=== PATIENT | female | born 1975 | race Caucasian/White ===

== ENCOUNTER 2024-06-06 08:43 | Emergency (ER) | payer MEDICAID, SELFPAY ==
[2024-06-06 09:03] VITALS: BP 125/83; PULSE 98; RESP 18; TEMP 37.4; O2SAT 100; BMI 28.1
--- NOTE | 2024-06-06 09:09 | PD.EDEYE ---
ED Eye Problem RME/HPI General Chief complaint: Eye Problems Stated complaint: RIGHT EYE SWELLING/PAIN Time Seen by Provider: 06/06/24 09:08 Source: patient Arrival date/time: 06/06/24 08:43 49-year-old female presents emergency department complaining of redness and swelling with drainage to right eye since this morning. Patient reports seeing states her Under that she placed yesterday and she awoke with the symptoms. Patient denies any vision changes, dizziness, headache, or any other symptom. Mode of arrival: ambulatory Limitations: no limitations Related Data Previous Rx's ?Medication ?Instructions ?Recorded aspirin 81 mg tablet,delayed 81 mg PO QDAY #30 tabs 09/29/20 release atorvastatin 40 mg tablet 40 mg PO QPM #30 tabs 09/29/20 clopidogrel 75 mg tablet (Plavix) 75 mg PO QDAY #30 tabs 09/29/20 metformin 1,000 mg tablet 1,000 mg PO BID #60 tabs 09/29/20 metoprolol tartrate 25 mg tablet 12.5 mg (1/2 x 25 mg) PO BID #60 09/29/20 tabs hydrocodone 5 mg-acetaminophen 325 1 tab PO BID PRN pain #6 tabs 09/16/23 mg tablet erythromycin 5 mg/gram (0.5 %) eye 0.5 inch ophthalmic (eye) QID 5 06/06/24 ointment days #3.5 grams Allergies Allergy/AdvReac Type Severity Reaction Status Date / Time No Known Allergies Allergy Verified 05/25/24 08:30 Review of Systems Review of Systems Systems Reviewed: All systems reviewed, normal except as documented Constitutional Constitutional: Reports system reviewed and no additional complaints, except as documented, Denies body ache(s), Denies chills and Denies fever(s) Eyes Eyes: Reports system reviewed and no additional complaints, except as documented, Denies change in vision, Reports eye discharge and Reports irritation ENT Ears, Nose, Mouth, and Throat: Reports system reviewed and no additional complaints, except as documented, Denies disequilibrium, Denies dizziness, Denies sore throat and Denies vertigo Cardiovascular Cardiovascular: Reports system reviewed and no additional complaints, except as documented, Denies chest pain and Denies dyspnea Respiratory Respiratory: Reports system reviewed and no additional complaints, except as documented, Denies chest congestion, Denies cough and Denies dyspnea Gastrointestinal Gastrointestinal: Reports system reviewed and no additional complaints, except as documented, Denies abdominal pain, Denies nausea and Denies vomiting Musculoskeletal Musculoskeletal: Reports system reviewed and no additional complaints, except as documented, Denies abnormal gait and Denies arthralgias Integumentary/Breasts Skin/Breast: Reports system reviewed and no additional complaints, except as documented, Denies erythema, Denies rash and Denies wounds Neurologic Neurologic: Reports system reviewed and no additional complaints, except as documented, Denies abnormal gait, Denies disequilibrium, Denies dizziness and Denies vertigo Past Medical History Past Medical History CARDIAC: Negative Congestive Heart Failure RESPIRATORY: Negative Chronic Obstructive Pulmonary Disease (COPD) GENITOURINARY: Negative Renal Disease ENDOCRINE: Positive Diabetes Mellitus Type 1; Negative Diabetes Mellitus Type 2 PSYCHO/SOCIAL: Positive Psychiatric Problems, Schizophrenia, Bipolar Disorder and Behavior Problems (episodes of psychosis) Surgical History SURGICAL: Positive Hysterectomy Social History SMOKING STATUS: Light (< 1 pack/day) ED Exam General Limitations: Present no limitations General appearance: Present alert and in no apparent distress Head Head exam: Present atraumatic Eye Eye exam: Present normal appearance, PERRL, EOMI and periorbital swelling (Scant edema) Expanded Eye Exam Eyelids: right: stye Pupils: Bilateral: regular, round and reactive Sclera/Conjunctival: bilateral: normal inspection ENT ENT exam: Present normal exam, normal oropharynx and mucous membranes moist Neck Neck exam: Present normal inspection, full ROM and trachea midline Chest Chest inspection: Present normal inspection and symmetric chest wall rise Respiratory Respiratory exam: Present normal lung sounds bilaterally Cardiovascular Cardiovascular exam: Present regular rate, normal rhythm and normal heart sounds Abdominal Exam Abdominal exam: Present soft and normal bowel sounds Extremities Exam Extremities exam: Present normal inspection and full ROM Back Exam Back exam: Present normal inspection and full ROM Neurological Exam Neurological exam: Present alert, oriented X3 and CN II-XII intact Psychiatric Psychiatric exam: Present normal affect and normal mood Skin Skin exam: Present warm, dry, intact and normal color Course Quality Measures none Vital Signs Vital signs: Vital Signs Temperature 99.3 F 06/06/24 09:03 Pulse Rate 98 06/06/24 09:03 Respiratory Rate 18 06/06/24 09:03 Blood Pressure 125/83 06/06/24 09:03 Pulse Oximetry (%) 100 06/06/24 09:03 Oxygen Delivery Method Room Air 06/06/24 09:03 100% room air within normal limits Eye MDM Narrative MDM Narrative:: 49-year-old female presents emergency department complaining of redness and swelling with drainage to right eye since this morning. Patient reports seeing states her Under that she placed yesterday and she awoke with the symptoms. Patient denies any vision changes, dizziness, headache, or any other symptom. Patient's right eye lower eyelid stye with no injection of similar. Right eye PERRLA. Patient appears nontoxic and hemodynamically stable. Patient discharged home with erythromycin cream and instructed to follow-up with primary care provider upon discharge. Patient data External records reviewed:: [facility] previous records Clinical information provided by:: patient Social determinants that could affect healthcare access:: none Patient has the following chronic illnesses:: See chart How is presenting disease/condition affected by chronic disease/condition?: uneffected by Evaluation data The following diagnostics were reviewed and interpreted by me:: other (specify) (N/A) Lab and/or radiology exams considered but not ordered:: N/A Interpretation Summary: N/A Medications / Prescriptions Medications or Prescriptions considered but not ordered:: N/A Medication administrations:: N/A Consultations Consultation(s) initiated? (list below): No Diagnosis Eye Problem Differential Diagnosis: conjunctivitis and periorbital cellulitis Most likely diagnosis given after review of the tests above:: Stye Admission Indicated Admission indicated?: not indicated Admission Request Was there a request for admission?: No Disposition Plan Disposition Plan: Discharge Discharge Attestation Discharge Attestation: The patient and all family members were given an opportunity to ask questions and understood the discharge instructions. Discharge instructions specifically effects, indications for sooner follow up or return to the emergency department, and the expected course of current diagnosis. Patient condition: Stable Discharge Plan Plan Patient Disposition: HOME (Self Care) Disposition Comment: Stable Prescriptions/Referrals Prescriptions/Med Rec: New erythromycin 5 mg/gram (0.5 %) ointment 0.5 inch ophthalmic (eye) QID 5 Days Qty: 3.5 0RF No Action metoprolol tartrate 25 mg Tablet 12.5 mg PO BID Qty: 60 0RF aspirin 81 mg tablet,delayed release (DR/EC) 81 mg PO QDAY Qty: 30 0RF clopidogrel [Plavix] 75 mg tablet 75 mg PO QDAY Qty: 30 0RF atorvastatin 40 mg tablet 40 mg PO QPM Qty: 30 0RF metformin 1,000 mg tablet 1,000 mg PO BID Qty: 60 0RF hydrocodone-acetaminophen 5-325 mg tablet 1 tab PO BID MDD 10 PRN (Reason: pain) Qty: 6 0RF Problem List Clinical Impression: Hordeolum externum of right lower eyelid Patient/Caregiver Discharge Instructions Discharge Activity: activity as tolerated Education Materials: ED Sty Additional Instructions: Apply medication as prescribed. Follow-up with primary care provider and request referral to expanded duty dental assistant if symptoms persist. Return to emergency department for any worsening symptoms or as needed. Print Language: Swazi Stand Alone Forms: Maureen Award Info., Patient Portal Info Letter PA/WATER TREATMENT PLANT SUPERVISOR Supervising Physician PA/WATER TREATMENT PLANT SUPERVISOR Supervising Physician: Dr. Morales
== END 2024-06-06 09:45 | disposition home or self-care (01) ==
LOC: SERX 09:27
PROVIDERS: Emergency Provider Emergency Medicine; PCP Family Medicine
DX: H00.012 Hordeolum externum right lower eyelid (principal)
CPT/HCPCS: 99281

== ENCOUNTER 2024-06-29 21:50 | Emergency (ER) | payer MEDICAID, SELFPAY ==
[2024-06-29 22:34] VITALS: BP 139/89; PULSE 90; RESP 18; TEMP 36.7; O2SAT 95; BMI 28.3
--- NOTE | 2024-06-29 22:46 | EKG_ITS ---
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
--- NOTE | 2024-06-29 23:06 | XR_ITS ---
Examination: PA lateral chest 2 views Technique: Upright PA lateral chest 2 views Exam date and time: June 29, 2024 1114 hrs. Comparison December 13, 2022 Indications: Coughing beginning 4 days ago. Findings: Suspicious for early bibasilar pneumonia Normal heart size No pulmonary edema The osseous structures are intact Impression: Suspicious for early bibasilar pneumonia
--- NOTE | 2024-06-29 23:07 | PD.EDRME ---
Rapid Medical Screening [facility] Arrival date/time: 06/29/24 21:50 49F with history of psych/drug use and NSTEMI presents to ED with several days of cough, N/V, and CP/SOB. Patient also has carpal tunnel on R wrist and wants a work note. Chief Complaint: Flu Like Symptoms Time Seen by Provider: 06/30/24 01:52 Vital signs: Vital Signs Temperature 98.1 F 06/29/24 22:34 Pulse Rate 90 06/29/24 22:34 Respiratory Rate 18 06/29/24 22:34 Blood Pressure 139/89 H 06/29/24 22:34 Pulse Oximetry (%) 95 06/29/24 22:34 Oxygen Delivery Method Room Air 06/29/24 22:34
[2024-06-29] MEDS: ONDANSETRON ODT 4 MG TABRAP PO (23:26)
[2024-06-29] MEDS: DEXAMETHASONE SOD PHOS INJ 10 MG/ML VIAL PO (23:26)
[2024-06-29 23:36] LABS: Basophils # (Auto) 0.1 Thou/mm3 (0.0-0.2); Basophils % (Auto) 1 % (0-2.5); Eosinophils # (Auto) 0.1 Thou/mm3 (0.0-0.5); Eosinophils % (Auto) 1 % (0-10); Hematocrit 41.2 % (36.0-46.0); Hemoglobin 14.2 g/dL (12.0-16.0); Immature Granulocytes % (Auto) 1 % (0-0); Immature Granulocytes Auto 0.15 Thou/mm3 (0.00-0.00); Lymphocytes # (Auto) 3.2 Thou/mm3 (1.0-4.8); Lymphocytes % (Auto) 27 % (10-50); Mean Corpuscular HGB Conc 34.5 g/dl (31.0-37.0); Mean Corpuscular Hemoglobin 29.2 pg (25.0-35.0); Mean Corpuscular Volume 85 fL (80-100); Monocytes # (Auto) 0.9 Thou/mm3 (0.0-0.8); Monocytes % (Auto) 8 % (0-12); Neutrophils # (Auto) 7.2 Thou/mm3 (1.8-7.7); Neutrophils % (Auto) 62 % (37-80); Nucleated Red Blood Cell % 0 /100 WBC (0); Platelet Count 416 Thou/mm3 (140-440); RDW Standard Deviation 42.9 fL (36.4-46.3); Red Blood Count 4.86 Miln/mm3 (4.00-5.20); White Blood Count 11.6 Thou/mm3 (3.6-11.0)
[2024-06-29] MEDS: ALBUTEROL/IPRATROPIUM (Duoneb) RT SOL 3 ML NEBU 6 ML INH (23:38)
[2024-06-29 23:42] VITALS: PULSE 88; RESP 16; O2SAT 99
[2024-06-29 23:49] LABS: Alanine Aminotransferase 23 U/L (10-49); Albumin, Serum 4.8 gm/dL (3.5-5.0); Albumin/Globulin Ratio 1.6 (1.2-2.2); Alkaline Phosphatase 77 U/L (46-116); Anion Gap 6 (7-16); Aspartate Amino Transferase 37 U/L (0-34); BUN/Creatinine Ratio 17 Ratio (12-20); Bilirubin,Total 0.3 mg/dL (0.3-1.2); Blood Urea Nitrogen 12 mg/dL (9-23); Calcium 10.4 mg/dL (8.3-10.6); Calcium (Corrected) 10.4 mg/dL (8.5-10.1); Carbon Dioxide 22.7 mMol/L (20.0-31.0); Chloride 107 mMol/L (98-107); Creatinine (Component) 0.7 mg/dL (0.6-1.3); Estimated Creatinine Clearance 83.8 mL/min (>60); Glucose 185 mg/dL (74-106); Lipase 40 U/L (12-53); Magnesium 1.8 mg/dL (1.6-2.6); Osmolality,Calculated 276 (275-295); Potassium 3.7 mMol/L (3.4-5.1); Sodium 136 mMol/L (136-145); Total Protein 7.8 gm/dL (5.7-8.2); Troponin I < 0.002 ng/mL (0.0-0.045); eGFR > 60 See Note
[2024-06-30 00:03] LABS: B-Type Natriuretic Peptide < 20 pg/mL (0-100)
[2024-06-30 00:20] LABS: Strep A Rapid Negative (Negative)
--- NOTE | 2024-06-30 01:53 | EDNOTE_ITS ---
Upper Respiratory Inf. RME/HPI General Chief Complaint: Flu Like Symptoms Stated Complaint: Cough Time Seen by Provider: 06/30/24 01:52 Arrival date/time: 06/29/24 21:50 49F with history of psych/drug use and NSTEMI presents to ED with several days of cough, N/V, and CP/SOB. Patient also has carpal tunnel on R wrist and wants a work note. Limitations: no limitations Related Data Previous Rx's ?Medication ?Instructions ?Recorded aspirin 81 mg tablet,delayed 81 mg PO QDAY #30 tabs 09/29/20 release atorvastatin 40 mg tablet 40 mg PO QPM #30 tabs 09/29/20 clopidogrel 75 mg tablet (Plavix) 75 mg PO QDAY #30 tabs 09/29/20 metformin 1,000 mg tablet 1,000 mg PO BID #60 tabs 09/29/20 metoprolol tartrate 25 mg tablet 12.5 mg (1/2 x 25 mg) PO BID #60 09/29/20 tabs hydrocodone 5 mg-acetaminophen 325 1 tab PO BID PRN pain #6 tabs 09/16/23 mg tablet albuterol sulfate 90 mcg/actuation 2 puff inhalation Q6H PRN 06/30/24 aerosol inhaler (Ventolin HFA) shortness of breath or wheezing #8.5 grams amoxicillin 875 mg tablet 875 mg PO TID 5 days #15 tabs 06/30/24 azithromycin 250 mg tablet See Rx Instructions PO .COMPLEX #6 06/30/24 tabs prednisone 20 mg tablet 40 mg (2 x 20 mg) PO QDAY 4 days 06/30/24 #8 tabs Allergies Allergy/AdvReac Type Severity Reaction Status Date / Time No Known Allergies Allergy Verified 05/25/24 08:30 Review of Systems Review of Systems Systems Reviewed: All systems reviewed, normal except as documented Constitutional Constitutional: Reports system reviewed and no additional complaints, except as documented, Denies fever(s) and Denies headache(s) ENT Ears, Nose, Mouth, and Throat: Denies disequilibrium and Denies headache(s) Cardiovascular Cardiovascular: Reports system reviewed and no additional complaints, except as documented, Reports as per HPI, Reports chest pain and Reports dyspnea Respiratory Respiratory: Reports system reviewed and no additional complaints, except as documented, Reports as per HPI, Reports cough and Reports dyspnea Gastrointestinal Gastrointestinal: Reports system reviewed and no additional complaints, except as documented, Reports as per HPI, Denies abdominal pain, Reports nausea and Reports vomiting Neurologic Neurologic: Reports system reviewed and no additional complaints, except as documented, Denies confusion, Denies disequilibrium and Denies headache(s) Psychiatric Psychiatric: Denies confusion Past Medical History Past Medical History CARDIAC: Negative Congestive Heart Failure RESPIRATORY: Negative Chronic Obstructive Pulmonary Disease (COPD) GENITOURINARY: Negative Renal Disease ENDOCRINE: Positive Diabetes Mellitus Type 1; Negative Diabetes Mellitus Type 2 PSYCHO/SOCIAL: Positive Psychiatric Problems, Schizophrenia, Bipolar Disorder and Behavior Problems (episodes of psychosis) Surgical History SURGICAL: Positive Hysterectomy Social History SMOKING STATUS: Former smoker ED Exam General Limitations: Present no limitations General appearance: Present alert and in no apparent distress Head Head exam: Present atraumatic Eye Eye exam: Present normal appearance, PERRL and EOMI ENT ENT exam: Present normal exam, normal oropharynx and mucous membranes moist Neck Neck exam: Present normal inspection, full ROM and trachea midline Chest Chest inspection: Present normal inspection and symmetric chest wall rise Respiratory Respiratory exam: Present wheezes Cardiovascular Cardiovascular exam: Present regular rate, normal rhythm and normal heart sounds Abdominal Exam Abdominal exam: Present soft and normal bowel sounds Extremities Exam Extremities exam: Present normal inspection and full ROM Back Exam Back exam: Present normal inspection and full ROM Neurological Exam Neurological exam: Present alert, oriented X3 and CN II-XII intact Psychiatric Psychiatric exam: Present normal affect and normal mood Skin Skin exam: Present warm, dry, intact and normal color Course Quality Measures none Orders Category Date Time Status Bedside COVID-19 Antigen Test NOW Care 06/29/24 21:58 Completed Bedside Influenza A&B Antigen Test NOW Care 06/29/24 21:58 Completed EKG (ED ONLY) *Do not use* NOW Care 06/29/24 22:46 Completed EKG (ED Only) Stat Exams 06/29/24 22:46 Draft XR chest 2V Stat Exams 06/29/24 23:06 Completed BNP [B-Type Natriuretic Peptide] Stat Lab 06/29/24 23:11 Completed CBC Stat Lab 06/29/24 23:11 Completed Comprehensive Metabolic Panel Stat Lab 06/29/24 23:11 Completed Lipase Stat Lab 06/29/24 23:11 Completed Magnesium Stat Lab 06/29/24 23:11 Completed Strep A Rapid Stat Lab 06/29/24 23:24 Completed Troponin I Stat Lab 06/29/24 23:11 Completed Albuterol/Ipratr Rt Fadumo [Duoneb Rt Fadumo] Med 06/29/24 23:06 Discontinued 6 ml INH X1 ONE Albuterol/Ipratr Rt Fadumo [Duoneb Rt Fadumo] Med 06/30/24 01:59 Discontinued 6 ml INH X1 ONE Budesonide Rt [Pulmicort Rt Fadumo] Med 06/30/24 01:59 Discontinued 0.5 mg INH X1 ONE Dexamethasone Inj [Decadron Inj] Med 06/29/24 23:06 Discontinued 10 mg PO X1 ONE Ondansetron Odt [Zofran Odt] Med 06/29/24 23:07 Discontinued 4 mg PO X1 ONE Vital Signs Vital signs: Vital Signs Temperature 98.1 F 06/29/24 22:34 Pulse Rate 90 06/29/24 22:34 Respiratory Rate 18 06/29/24 22:34 Blood Pressure 139/89 H 06/29/24 22:34 Pulse Oximetry (%) 95 06/29/24 22:34 Oxygen Delivery Method Room Air 06/29/24 22:34 O2 at 95% on RA and WNLs Upper Respiratory Infection MDM Narrative MDM Narrative:: 49F with history of psych/drug use and NSTEMI presents to ED with several days of cough, N/V, and CP/SOB. Patient also has carpal tunnel on R wrist and wants a work note. Physical exam reveals wheezing in lungs. Patient is afebrile, calm, and alert. CXR early PNA. EKG is NSR. Normal trop and BNP. Minimal leukocytosis. Breathing tx/steroids improved symptoms. Patient does smoke so may have COPD. Patient data External records reviewed:: [facility] previous records Clinical information provided by:: patient Social determinants that could affect healthcare access:: substance use Patient has the following chronic illnesses:: psych/drug use and NSTEMI How is presenting disease/condition affected by chronic disease/condition?: no chronic disease Evaluation data The following diagnostics were reviewed and interpreted by me:: lab results, radiology exam(s) and EKG tracing(s) Lab and/or radiology exams considered but not ordered:: ordered Interpretation Summary: above Medications / Prescriptions Medications or Prescriptions considered but not ordered:: ordered Medication administrations:: Medication Administration History Discontinued Medications Albuterol/Ipratropium (Albuterol/Ipratropium (Duoneb) Rt Fadumo 3 Ml Nebu) 6 ml INH X1 ONE Stop: 06/29/24 23:07 Last Admin: 06/29/24 23:38 Dose: 6 ml Documented By: CHELSIE Albuterol/Ipratropium (Albuterol/Ipratropium (Duoneb) Rt Fadumo 3 Ml Nebu) 6 ml INH X1 ONE Stop: 06/30/24 02:00 Last Admin: 06/30/24 02:06 Dose: 6 ml Documented By: TACHO Budesonide (Budesonide Rt 0.5 Mg/2 Ml Nebu) 0.5 mg INH X1 ONE Stop: 06/30/24 02:00 Last Admin: 06/30/24 02:06 Dose: 0.5 mg Documented By: TACHO Dexamethasone Sodium Phosphate (Dexamethasone Sod Phos Inj 10 Mg/Ml Vial) 10 mg PO X1 ONE Stop: 06/29/24 23:07 Last Admin: 06/29/24 23:26 Dose: 10 mg Documented By: ARTURO Ondansetron HCl (Ondansetron Odt 4 Mg Tabrap) 4 mg PO X1 ONE; Protocol Stop: 06/29/24 23:08 Last Admin: 06/29/24 23:26 Dose: 4 mg Documented By: ARTURO above Consultations Consultation(s) initiated? (list below): No Diagnosis Upper Respiratory Differential Diagnosis: upper respiratory infection, croup, otitis media, sinusitis, viral infection, bronchitis, influenza, pharyngitis and other (CAP) Most likely diagnosis given after review of the tests above:: CAP Admission Indicated Admission indicated?: not indicated Admission Request Was there a request for admission?: No Disposition Plan Disposition Plan: Discharge Discharge Attestation Discharge Attestation: The patient and all family members were given an opportunity to ask questions and understood the discharge instructions. Discharge instructions specifically effects, indications for sooner follow up or return to the emergency department, and the expected course of current diagnosis. Patient condition: Stable Discharge Plan Plan Patient Disposition: HOME (Self Care) Disposition Comment: Stable Prescriptions/Referrals Prescriptions/Med Rec: New amoxicillin 875 mg tablet 875 mg PO TID 5 Days Qty: 15 0RF azithromycin 250 mg tablet See Rx Instructions .ROUTE .COMPLEX Qty: 6 0RF Rx Instructions: For 250 mg dose pack: take 500 mg today (day 1), then 250 mg for 4 days (days 2-5) albuterol sulfate [Ventolin HFA] 90 mcg/actuation HFA aerosol inhaler 2 puff inhalation Q6H PRN (Reason: shortness of breath or wheezing) Qty: 8.5 0RF prednisone 20 mg tablet 40 mg PO QDAY 4 Days Qty: 8 0RF No Action metoprolol tartrate 25 mg Tablet 12.5 mg PO BID Qty: 60 0RF aspirin 81 mg tablet,delayed release (DR/EC) 81 mg PO QDAY Qty: 30 0RF clopidogrel [Plavix] 75 mg tablet 75 mg PO QDAY Qty: 30 0RF atorvastatin 40 mg tablet 40 mg PO QPM Qty: 30 0RF metformin 1,000 mg tablet 1,000 mg PO BID Qty: 60 0RF hydrocodone-acetaminophen 5-325 mg tablet 1 tab PO BID MDD 10 PRN (Reason: pain) Qty: 6 0RF Problem List Clinical Impression: CAP (community acquired pneumonia) Patient/Caregiver Discharge Instructions Additional Instructions: Please follow-up with PCP within 24-48 hours and return immediately if symptoms worsen. Ibuprofen/Tylenol can be used simultaneously for greater fever/pain control. Benadryl is good for cough, congestion, and sleep. Print Language: [place] Stand Alone Forms: Work/School Release, Patient Portal Info Letter PA/SPECIAL INVESTIGATOR Supervising Physician PA/SPECIAL INVESTIGATOR Supervising Physician: Dr. Mehta
[2024-06-30 01:55] VITALS: BP 127/85; PULSE 87; RESP 18; TEMP 37; O2SAT 95
[2024-06-30] MEDS: ALBUTEROL/IPRATROPIUM (Duoneb) RT SOL 3 ML NEBU 6 ML INH (02:06)
[2024-06-30] MEDS: BUDESONIDE RT 0.5 MG/2 ML NEBU INH (02:06)
[2024-06-30 02:09] VITALS: PULSE 83; RESP 18; O2SAT 97
== END 2024-06-30 02:45 | disposition home or self-care (01) ==
LOC: SERX 06-30 05:22
PROVIDERS: Physician Assistant; Emergency Provider Emergency Medicine; PCP Family Medicine
DX: J18.9 Pneumonia, unspecified organism (principal)
CPT/HCPCS: 36415; 71046; 80053; 83690; 83735; 83880; 84484; 85025; 87400; 87651; 87811; 93005; 94640; 99284; A9270; J1100; Q0162

== ENCOUNTER 2024-06-30 21:18 | Emergency (ER) | payer MEDICAID, SELFPAY ==
[2024-06-30 21:19] VITALS: BMI 26.4
--- NOTE | 2024-06-30 21:20 | EKG_ITS ---
[facility] Test Date: 2024-06-30 Pat Name: MARLENA OSUNA Department: Room: - Gender: Female Director Clinical Research: : 1975 Requested By: Wei Lorenzo Order Number: [id number] Reading MD: Wei Lorenzo Measurements Intervals [place] Rate: 92 P: 66 IN: 185 QRS: 66 QRSD: 76 T: 57 QT: 356 QTc: 440 Interpretive Statements SINUS RHYTHM LOW QRS VOLTAGE IN PRECORDIAL LEADS [QRS DEFLECTION < 1.0 mV IN CHEST LEADS] Compared to ECG 06/29/2024 23:07:49 No significant changes /store/S0/[id number]/[id number].pdf
[2024-06-30 21:26] VITALS: BP 122/85; PULSE 93; RESP 20; TEMP 36.9; O2SAT 94
--- NOTE | 2024-06-30 21:34 | XR_ITS ---
Examination: PA lateral chest 2 views Technique: Upright PA lateral chest 2 views Exam date and time: June 30, 2024 2144 hrs. Comparison June 29, 2024 SOB 3 weeks coughing today Findings: Fat pad at the right cardiophrenic angle Mild scarring versus pneumonia in the lingular segment left upper lobe Normal heart size Osseous structures are intact Impression: Scarring versus mild pneumonia in the lingular segment left upper lobe, clinical correlation advised
--- NOTE | 2024-06-30 21:36 | PD.EDRME ---
Rapid Medical Screening Exam [facility] Arrival date/time: 06/30/24 21:18 49F with history of psych/drug use and NSTEMI presents to ED with several days of cough, N/V, and CP/SOB. Patient was here yesterday for this and diagnosed with early PNA w/ wheezing. Patient picked up her steroids and ABX (amoxicillin and Z-toni) and has been taking them. Chief Complaint: Shortness of Breath/Dyspnea Vital signs: Vital Signs Temperature 98.5 F 06/30/24 21:26 Pulse Rate 93 06/30/24 21:26 Respiratory Rate 20 06/30/24 21:26 Blood Pressure 122/85 H 06/30/24 21:26 Pulse Oximetry (%) 94 L 06/30/24 21:26 Oxygen Delivery Method Room Air 06/30/24 21:26
[2024-06-30 22:19] VITALS: BP 133/83; PULSE 86; RESP 19; TEMP 37.1; O2SAT 95
[2024-06-30] MEDS: DEXAMETHASONE SOD PHOS INJ 10 MG/ML VIAL PO (22:19)
[2024-06-30 22:23] LABS: Alanine Aminotransferase 26 U/L (10-49); Albumin/Globulin Ratio 1.7 (1.2-2.2); Alkaline Phosphatase 75 U/L (46-116); Anion Gap 7 (7-16); Aspartate Amino Transferase 25 U/L (0-34); BUN/Creatinine Ratio 15 Ratio (12-20); Bilirubin,Total 0.3 mg/dL (0.3-1.2); Blood Urea Nitrogen 15 mg/dL (9-23); Calcium 10.5 mg/dL (8.3-10.6); Calcium (Corrected) 10.5 mg/dL (8.5-10.1); Carbon Dioxide 21.2 mMol/L (20.0-31.0); Chloride 104 mMol/L (98-107); Estimated Creatinine Clearance 61.4 mL/min (>60); Glucose 301 mg/dL (74-106); Osmolality,Calculated 276 (275-295); Potassium 3.9 mMol/L (3.4-5.1); Sodium 132 mMol/L (136-145); eGFR > 60 See Note
[2024-06-30 22:25] LABS: Basophils # (Auto) 0.1 Thou/mm3 (0.0-0.2); Basophils % (Auto) 0 % (0-2.5); Eosinophils # (Auto) 0.1 Thou/mm3 (0.0-0.5); Eosinophils % (Auto) 0 % (0-10); Hematocrit 39.9 % (36.0-46.0); Hemoglobin 13.6 g/dL (12.0-16.0); Immature Granulocytes % (Auto) 1 % (0-0); Immature Granulocytes Auto 0.21 Thou/mm3 (0.00-0.00); Lymphocytes # (Auto) 1.6 Thou/mm3 (1.0-4.8); Lymphocytes % (Auto) 7 % (10-50); Mean Corpuscular HGB Conc 34.1 g/dl (31.0-37.0); Mean Corpuscular Hemoglobin 29.3 pg (25.0-35.0); Mean Corpuscular Volume 86 fL (80-100); Monocytes # (Auto) 1.2 Thou/mm3 (0.0-0.8); Monocytes % (Auto) 5 % (0-12); Neutrophils # (Auto) 21.3 Thou/mm3 (1.8-7.7); Neutrophils % (Auto) 87 % (37-80); Nucleated Red Blood Cell % 0 /100 WBC (0); Platelet Count 489 Thou/mm3 (140-440); RDW Standard Deviation 43.4 fL (36.4-46.3); Red Blood Count 4.64 Miln/mm3 (4.00-5.20); White Blood Count 24.4 Thou/mm3 (3.6-11.0)
[2024-06-30] MEDS: LEVALBUTEROL RT 1.25 MG/0.5 ML NEBU 5 MG INH (22:29)
[2024-06-30] MEDS: IPRATROPIUM RT 0.5 MG/ 2.5 ML NEBU 1 MG INH (22:29)
[2024-06-30] MEDS: SODIUM CHLORIDE RT SOL 0.9% 3 ML NEBU INH (22:30)
--- NOTE | 2024-06-30 22:30 | PD.EDSOB ---
ED SOB =RME/HPI General Chief Complaint: Shortness of Breath/Dyspnea Stated Complaint: DIFF BREATHING Arrival date/time: 06/30/24 21:18 Mode of arrival: ambulatory Limitations: no limitations RME / HPI RME / HPI Narrative: 06/30/24 21:18 49F with history of psych/drug use and NSTEMI presents to ED with several days of cough, N/V, and CP/SOB. Patient was here yesterday for this and diagnosed with early PNA w/ wheezing. Patient picked up her steroids and ABX (amoxicillin and Z-toni) and has been taking them. ---- Dr. Batres's Main ED Evaluation: 49yo female with a history of schizophrenia, DM presents to the ED for a chief complaint of shortness of breath. Patient states she was seen here yesterday for the same complaint and was diagnosed with pneumonia. She states she's been taking her antibiotics, but reports today her shortness of breath and cough worsened after she ran around doing errands. She is requesting another doctor's note to be able to get some rest . She denies any fever, chills or any other associated symptoms. No known allergies. Related Data Previous Rx's ?Medication ?Instructions ?Recorded aspirin 81 mg tablet,delayed 81 mg PO QDAY #30 tabs 09/29/20 release atorvastatin 40 mg tablet 40 mg PO QPM #30 tabs 09/29/20 clopidogrel 75 mg tablet (Plavix) 75 mg PO QDAY #30 tabs 09/29/20 metformin 1,000 mg tablet 1,000 mg PO BID #60 tabs 09/29/20 metoprolol tartrate 25 mg tablet 12.5 mg (1/2 x 25 mg) PO BID #60 09/29/20 tabs hydrocodone 5 mg-acetaminophen 325 1 tab PO BID PRN pain #6 tabs 09/16/23 mg tablet albuterol sulfate 90 mcg/actuation 2 puff inhalation Q6H PRN 06/30/24 aerosol inhaler (Ventolin HFA) shortness of breath or wheezing #8.5 grams amoxicillin 875 mg tablet 875 mg PO TID 5 days #15 tabs 06/30/24 azithromycin 250 mg tablet See Rx Instructions PO .COMPLEX #6 06/30/24 tabs prednisone 20 mg tablet 40 mg (2 x 20 mg) PO QDAY 4 days 06/30/24 #8 tabs Allergies Allergy/AdvReac Type Severity Reaction Status Date / Time No Known Allergies Allergy Verified 05/25/24 08:30 Review of Systems Review of Systems Systems Reviewed: All systems reviewed, normal except as documented Past Medical History Past Medical History CARDIAC: Negative Congestive Heart Failure RESPIRATORY: Negative Chronic Obstructive Pulmonary Disease (COPD) GENITOURINARY: Negative Renal Disease ENDOCRINE: Positive Diabetes Mellitus Type 1; Negative Diabetes Mellitus Type 2 PSYCHO/SOCIAL: Positive Psychiatric Problems, Schizophrenia, Bipolar Disorder and Behavior Problems Surgical History SURGICAL: Positive Hysterectomy Social History SMOKING STATUS: Current every day smoker ED Exam Narrative Physical exam: Increased respiratory rate. General Limitations: Present no limitations General appearance: Present alert and anxious Head Head exam: Present atraumatic Eye Eye exam: Absent conjunctival injection ENT ENT exam: Present normal exam, normal oropharynx and mucous membranes moist Neck Neck exam: Present normal inspection, full ROM and other (JV-none) Chest Chest inspection: Present normal inspection and symmetric chest wall rise Respiratory Respiratory exam: Present wheezes and other (Bilateral rhonchi) Cardiovascular Cardiovascular exam: Present regular rate, normal rhythm and normal heart sounds Abdominal Exam Abdominal exam: Present soft; Absent distention Extremities Exam Extremities exam: Present normal inspection; Absent pedal edema or calf tenderness Back Exam Back exam: Present normal inspection and full ROM Neurological Exam Neurological exam: Present alert, oriented X3 and CN II-XII intact Psychiatric Psychiatric exam: Present normal affect and normal mood Skin Skin exam: Present warm, dry and intact; Absent pallor Course Course Course Narrative: CXR is ordered for determining the etiology of shortness of breath. Quality Measures none Orders Category Date Time Status Bedside COVID-19 Antigen Test NOW Care 07/01/24 03:[address] Screening NOW Care 06/30/24 23:14 Completed EKG (ED ONLY) *Do not use* NOW Care 06/30/24 21:[address] angio chest Stat Exams 06/30/24 23:14 Taken EKG (ED Only) Stat Exams 06/30/24 21:20 Draft XR chest 2V Stat Exams 06/30/24 21:34 Completed CBC Stat Lab 06/30/24 21:53 Completed CMP [Comprehensive Metabolic Panel] Stat Lab 06/30/24 21:53 Completed Cocci Serology IgM with reflex to IgG [Cocci Serology, Lab 06/30/24 21:53 Received Unk History] Stat Dexamethasone Inj [Decadron Inj] Med 06/30/24 21:43 Discontinued 10 mg PO X1 ONE Ipratropium [place] Rt Fadumo [Atrovent Rt Fadumo] Med 06/30/24 21:34 Discontinued 1 mg INH X1 ONE Levalbuterol Rt [Xopenex Rt Fadumo] Med 06/30/24 21:34 Discontinued 5 mg INH X1 ONE Sodium Chloride Rt Fadumo 0.9% [NS Rt Fadumo 0.9%] Med 06/30/24 21:34 Discontinued 3 ml INH PRN PRN Oxygen Delivery NOW RT 06/30/24 21:40 Completed Reevaluation(s) Reevaluation #1: Discussed results with the patient at bedside. Educated the patient the need to take her medications as prescribed, to decrease her smoking, and to get plenty of rest. Patient is talking in full sentences and is stable to be discharged home. Time: 03:33 Vital Signs Vital signs: Vital Signs Temperature 98.5 F 06/30/24 21:26 Pulse Rate 93 06/30/24 21:26 Respiratory Rate 20 06/30/24 21:26 Blood Pressure 122/85 H 06/30/24 21:26 Pulse Oximetry (%) 94 L 06/30/24 21:26 Oxygen Delivery Method Room Air 06/30/24 21:26 Pulse ox is 94% on room air, which is normal according to my interpretation. Procedures -ED Smoking Cessation Time Spent Discussing Smoking Cessation w/Patient (min): 5 Patient Acknowledges Need for Cessation: Yes Additional Comments: The patient was counseled as to the multiple risks to their health from continued use of tobacco products. 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 The patient states she/he understands these risks and also understands the options and resources available to them to help them stop smoking. Nicotine replacement therapy, local hotlines, and local resources were discussed as viable options for helping them stop their tobacco use. The total time spent counseling the patient regarding tobacco cessation was 5 minutes. Shortness of Breath / Dyspnea MDM Narrative MDM Narrative:: Differential diagnosis includes sepsis, elevated white count secondary to steroid use, worsening pneumonia, pulmonary embolism, patient not being compliant with not going to work and resting after being placed on pneumonia, drug use Patient data External records reviewed:: [facility] previous records (Per chart review, patient was seen here yesterday for community-acquired pneumonia.) Clinical information provided by:: patient Social determinants that could affect healthcare access:: none Patient has the following chronic illnesses:: schizophrenia, DM How is presenting disease/condition affected by chronic disease/condition?: uneffected by Evaluation data The following diagnostics were reviewed and interpreted by me:: lab results, radiology exam(s) and EKG tracing(s) Lab and/or radiology exams considered but not ordered:: none Interpretation Summary: WBC count is elevated at 24.4, Sodium is slightly low at 132, Glucose is elevated at 301, according to my interpretation. EKG done at 2136, NSR, rate of 92, low voltage, no ST elevations or depressions, QTc: 405, no STEMI, similar to previous EKG done on 06/29/24, according to my interpretation. -------- I have personally reviewed the radiology data and agree with the radiologist's interpretation below: [facility] Report Signed Patient: MARLENA OSUNA Record#: [id number] Birthdate: 1975 Age/Sex: 49 / F [facility] Attending Dr: Ordering Physician: Wei Lorenzo PA-C Date of Service: 06/30/24 Procedure(s): XR chest 2V Accession Number(s): [id number] cc: Warren Beck MD; NO PRIMARY/FAMILY,PHYSICIAN; Wei Lorenzo PA-C~ Examination: PA lateral chest 2 views Technique: Upright PA lateral chest 2 views Exam date and time: June 30, 2024 2144 hrs. Comparison June 29, 2024 SOB 3 weeks coughing today Findings: Fat pad at the right cardiophrenic angle Mild scarring versus pneumonia in the lingular segment left upper lobe Normal heart size Osseous structures are intact Impression: Scarring versus mild pneumonia in the lingular segment left upper lobe, clinical correlation advised Dictated By: Warren Beck MD Signed By: <Electronically signed by Warren Beck MD in OV> 06/30/24 8136 ------- [facility] Preliminary Report Draft Patient: MARLENA OSUNA Record#: [id number] Birthdate: 1975 Age/Sex: 49 / F Location: [facility] Attending Dr: Ordering Physician: Date of Service: Procedure(s): Accession Number(s): cc: ~ CT angiogram of the chest aorta with intravenous contrast (axial sections with sagittal and coronal reformats) June 30, 2024 2351 hours Clinical History: Increasing shortnessof breath No prior study is available for comparison. Findings: The thoracic aorta is unremarkable. The origins of the right brachiocephalic, left common carotid and left subclavian arteries are patent. There is no filling defect within the pulmonary artery divisions to suggest pulmonary thromboembolism. The mediastinum demonstrates no evidence of mass or lymphadenopathy. There is no pericardial effusion. Patchy ground-glass opacities in the right upper lobe and right middle lobe (sag 99, 105/356). Subsegmental atelectasis is noted at the right lung base. There is streaky atelectasis in left lower lobe. No evidence of pleural effusion or pneumothorax. The osseous structures are unremarkable. The visualized upper abdominal viscera are unremarkable. Impression: No evidence of pulmonary thromboembolism or aortic dissection/aneurysm. Patchy ground-glass opacities in the right upper lobe and right middle lobe., likely infective/inflammatory. Recommend follow-up. Other findings as described above. Report Electronically Signed By: Dave Hemphill 07/01/2024 1:09:05 AM [EST] Medications / Prescriptions Medications or Prescriptions considered but not ordered:: none Medication administrations:: Medication Administration History Discontinued Medications Dexamethasone Sodium Phosphate (Dexamethasone Sod Phos Inj 10 Mg/Ml Vial) 10 mg PO X1 ONE Stop: 06/30/24 21:44 Last Admin: 06/30/24 22:19 Dose: 10 mg Documented By: WILLIAM Ipratropium [place] (Ipratropium Rt 0.5 Mg/ 2.5 Ml Nebu) 1 mg INH X1 ONE Stop: 06/30/24 21:35 Last Admin: 06/30/24 22:29 Dose: 1 mg Documented By: TACHO Levalbuterol HCl (Levalbuterol Rt 1.25 Mg/0.5 Ml Nebu) 5 mg INH X1 ONE Stop: 06/30/24 21:35 Last Admin: 06/30/24 22:29 Dose: 5 mg Documented By: TACHO Sodium Chloride (Sodium Chloride Rt Fadumo 0.9% 3 Ml Nebu) 3 ml INH PRN PRN PRN Reason: SOLN Stop: 07/30/24 21:33 Last Admin: 06/30/24 22:30 Dose: 3 ml Documented By: TACHO see above Consultations Consultation(s) initiated? (list below): No Diagnosis Shortness of Breath Differential Diagnosis: congestive heart failure, community acquired pneumonia, asthma with exacerbation, pulmonary embolism and other (viral syndrome, drug use, atelectasis, COVID, sepsis) Most likely diagnosis given after review of the tests above:: see below Admission Indicated Admission indicated?: not indicated Admission Request Was there a request for admission?: No Disposition Plan Disposition Plan: Discharge Discharge Attestation Discharge Attestation: The patient and all family members were given an opportunity to ask questions and understood the discharge instructions. Discharge instructions specifically effects, indications for sooner follow up or return to the emergency department, and the expected course of current diagnosis. Patient condition: Stable Discharge Plan Plan Patient Disposition: HOME (Self Care) Patient condition on transfer: Stable Prescriptions/Referrals Prescriptions/Med Rec: No Action metoprolol tartrate 25 mg Tablet 12.5 mg PO BID Qty: 60 0RF aspirin 81 mg tablet,delayed release (DR/EC) 81 mg PO QDAY Qty: 30 0RF clopidogrel [Plavix] 75 mg tablet 75 mg PO QDAY Qty: 30 0RF atorvastatin 40 mg tablet 40 mg PO QPM Qty: 30 0RF metformin 1,000 mg tablet 1,000 mg PO BID Qty: 60 0RF hydrocodone-acetaminophen 5-325 mg tablet 1 tab PO BID MDD 10 PRN (Reason: pain) Qty: 6 0RF amoxicillin 875 mg tablet 875 mg PO TID 5 Days Qty: 15 0RF azithromycin 250 mg tablet See Rx Instructions .ROUTE .COMPLEX Qty: 6 0RF Rx Instructions: For 250 mg dose pack: take 500 mg today (day 1), then 250 mg for 4 days (days 2-5) albuterol sulfate [Ventolin HFA] 90 mcg/actuation HFA aerosol inhaler 2 puff inhalation Q6H PRN (Reason: shortness of breath or wheezing) Qty: 8.5 0RF prednisone 20 mg tablet 40 mg PO QDAY 4 Days Qty: 8 0RF Referrals: No Primary/Family,Physician [Primary Care Provider] - In 1 week Problem List Clinical Impression: CAP (community acquired pneumonia) Patient/Caregiver Discharge Instructions Education Materials: ED Pneumonia (Adult) Additional Instructions: Today your CAT scan shows that you have left upper lobe and right lower lobe pneumonia. Your white count is slightly elevated and this is most likely from you being on steroids however you will need to check in with your primary care physician in the next 24 to 72 hours for a recheck. If you cannot get into your primary care physician tomorrow or Friday you can return to the emergency department approximately at 6 PM to be reevaluated by myself Dr. Wylie. Please continue antibiotics. Stay hydrated with Pedialyte Gatorade ensure you are getting plenty of sleep.. Return to the emergency department for any worsening symptoms, or any other concerns. Please hold your metformin for 48 hours. Print Language: Indonesian Stand Alone Forms: Maureen Award Info., Work/School Release, Patient Portal Info Letter
[2024-06-30 22:40] VITALS: PULSE 86; RESP 18; O2SAT 93
--- NOTE | 2024-06-30 23:14 | XR_ITS ---
Examination: CTA chest with intravenous contrast 2-D reconstructions 3-D reconstructions, vascular Date and time of exam: June 30, 2024 11:51 PM Indications: Hypoxia increasing shortness of breath difficulty breathing this week, smoking history 37 years CTDI: vol (mGy) 14.53 DLP: (mGycm) 340 Technique: Multiple axial sections of the thorax have been obtained. 3 mm slice thickness, from below the hemidiaphragms to above the apices of the lungs. Mediastinal and lung density settings have been obtained. 2-D sagittal and coronal reconstructions. 3-D angiographic renderings, 3-D volume renderings, 3D post processing, vascular maximum intensity projections obtained. Contrast administered is 80 cc Isovue-370 intravenous. Low dose protocols were performed. One or more of the following dose reduction techniques were used; automated exposure control, adjustment of the mA and/or KV according to patient size, use of iterative reconstruction technique. Findings: No thoracic aortic aneurysmal dilatation Pulmonary artery segments are not enlarged No pulmonary artery emboli No paratracheal tracheobronchial or bronchopulmonary adenopathy Soft opacities in the right upper lobe No pleural disease Diffuse fatty infiltration throughout the liver Contracted gallbladder Spleen is not enlarged Kidneys partially visualized no hydronephrosis Intact osseous structures Impression: Negative for pulmonary artery emboli Mild pneumonia right upper lobe
[2024-07-01] VITALS: PULSE 90; RESP 18; RESP 94
--- NOTE | 2024-07-01 01:09 | PRELIM_ITS ---
CT angiogram of the chest aorta with intravenous contrast (axial sections with sagittal and coronal r eformats) June 30, 2024 2351 hours Clinical History: Increasing shortnessof breath No prior study is available for comparison. Findings:The thoracic aorta is unremarkable. The origins of the right b rachiocephalic, left common carotid and left subclavian arteries are patent.There is no filling defec t within the pulmonary artery divisions to suggest pulmonary thromboembolism. The mediastinum demonst rates no evidence of mass or lymphadenopathy. There is no pericardial effusion.Patchy ground-glass op acities in the right upper lobe and right middle lobe (sag 99, 105/356). Subsegmental atelectasis is noted at the right lung base. There is streaky atelectasis in left lower lobe. No evidence of pleural effusion or pneumothorax.The osseous structures are unremarkable.The visualized upper abdominal visc era are unremarkable.Impression:No evidence of pulmonary thromboembolism or aortic dissection/aneury sm.Patchy ground-glass opacities in the right upper lobe and right middle lobe., likely infective/inf lammatory. Recommend follow-up. Other findings as described above. Report Electronically Signed By: Dave Hemphill 07/01/2024 1:09:05 AM [EST]
[2024-07-01 02:00] VITALS: BP 129/85; PULSE 95; RESP 16; O2SAT 96
[2024-07-01 04:01] VITALS: BP 138/72; PULSE 85; RESP 18; TEMP 37; O2SAT 95
[2024-07-01 13:12] LABS: Cocci Serology, IgM Negative (Negative)
[2024-07-02 13:26] LABS: Cocci Serology, IgG Negative (Negative)
== END 2024-07-01 04:10 | disposition home or self-care (01) ==
PROVIDERS: Physician Assistant; Emergency Provider Emergency Medicine
DX: J18.9 Pneumonia, unspecified organism (principal); F17.210 Nicotine dependence, cigarettes, uncomplicated; R94.31 Abnormal electrocardiogram [ECG] [EKG]
CPT/HCPCS: 36415; 71046; 71275; 80053; 85025; 86331; 86635; 87811; 93005; 94644; 99285; A4649; J1100; Q9967

== ENCOUNTER 2024-07-01 21:24 | Inpatient (IN) | payer MEDICAID, SELFPAY ==
[2024-07-01 21:25] VITALS: BMI 26.4
[2024-07-01 22:05] VITALS: BP 140/75; PULSE 115; RESP 19; TEMP 36.6; O2SAT 95
--- NOTE | 2024-07-01 22:24 | PD.EDSOB ---
ED SOB =RME/HPI General Chief Complaint: Shortness of Breath/Dyspnea Stated Complaint: SOB-recenly dx with pneumonia Time Seen by Provider: 07/01/24 22:12 Arrival date/time: 07/01/24 21:24 49F with history of asthma, DM, psych/drug use and NSTEMI presents to ED with 1 week of cough, N/V, and CP/SOB. Patient does smoke. Patient was here for the past 2 days this and diagnosed with PNA w/ wheezing. Patient had a CTA yesterday that confirmed PNA and no PE. Patient picked up her steroids and ABX (amoxicillin and Z-toni) and has been taking them. Limitations: no limitations Related Data Previous Rx's ?Medication ?Instructions ?Recorded aspirin 81 mg tablet,delayed 81 mg PO QDAY #30 tabs 09/29/20 release atorvastatin 40 mg tablet 40 mg PO QPM #30 tabs 09/29/20 clopidogrel 75 mg tablet (Plavix) 75 mg PO QDAY #30 tabs 09/29/20 metformin 1,000 mg tablet 1,000 mg PO BID #60 tabs 09/29/20 metoprolol tartrate 25 mg tablet 12.5 mg (1/2 x 25 mg) PO BID #60 09/29/20 tabs hydrocodone 5 mg-acetaminophen 325 1 tab PO BID PRN pain #6 tabs 09/16/23 mg tablet albuterol sulfate 90 mcg/actuation 2 puff inhalation Q6H PRN 06/30/24 aerosol inhaler (Ventolin HFA) shortness of breath or wheezing #8.5 grams amoxicillin 875 mg tablet 875 mg PO TID 5 days #15 tabs 06/30/24 azithromycin 250 mg tablet See Rx Instructions PO .COMPLEX #6 06/30/24 tabs prednisone 20 mg tablet 40 mg (2 x 20 mg) PO QDAY 4 days 06/30/24 #8 tabs Allergies Allergy/AdvReac Type Severity Reaction Status Date / Time No Known Allergies Allergy Verified 07/01/24 21:27 Review of Systems Review of Systems Systems Reviewed: All systems reviewed, normal except as documented Constitutional Constitutional: Reports system reviewed and no additional complaints, except as documented, Denies fever(s) and Denies headache(s) ENT Ears, Nose, Mouth, and Throat: Denies disequilibrium and Denies headache(s) Cardiovascular Cardiovascular: Reports system reviewed and no additional complaints, except as documented, Denies chest pain and Reports dyspnea Respiratory Respiratory: Reports system reviewed and no additional complaints, except as documented, Reports as per HPI, Reports cough and Reports dyspnea Gastrointestinal Gastrointestinal: Reports system reviewed and no additional complaints, except as documented, Denies abdominal pain, Denies nausea and Denies vomiting Neurologic Neurologic: Reports system reviewed and no additional complaints, except as documented, Denies confusion, Denies disequilibrium and Denies headache(s) Psychiatric Psychiatric: Denies confusion Past Medical History Past Medical History CARDIAC: Negative Cardiac Disorders or Congestive Heart Failure RESPIRATORY: Positive Asthma; Negative Chronic Obstructive Pulmonary Disease (COPD) GENITOURINARY: Negative Renal Disease ENDOCRINE: Positive Diabetes Mellitus Type 1 and Diabetes Mellitus Type 2 HEMATOLOGIC: Negative Sickle Cell Disease PSYCHO/SOCIAL: Positive Psychiatric Problems, Schizophrenia, Bipolar Disorder and Behavior Problems Surgical History SURGICAL: Positive Hysterectomy Social History SMOKING STATUS: Current every day smoker ED Exam General Limitations: Present no limitations General appearance: Present alert and in no apparent distress Head Head exam: Present atraumatic Eye Eye exam: Present normal appearance, PERRL and EOMI ENT ENT exam: Present normal exam, normal oropharynx and mucous membranes moist Neck Neck exam: Present normal inspection, full ROM and trachea midline Chest Chest inspection: Present normal inspection and symmetric chest wall rise Respiratory Respiratory exam: Present wheezes Cardiovascular Cardiovascular exam: Present regular rate, normal rhythm and normal heart sounds Abdominal Exam Abdominal exam: Present soft and normal bowel sounds Extremities Exam Extremities exam: Present normal inspection and full ROM Back Exam Back exam: Present normal inspection and full ROM Neurological Exam Neurological exam: Present alert, oriented X3 and CN II-XII intact Psychiatric Psychiatric exam: Present normal affect and normal mood Skin Skin exam: Present warm, dry, intact and normal color Course Quality Measures none Orders Category Date Time Status Bedside COVID-19 Antigen Test NOW Care 07/02/24 00:48 Active COVID-19 Screening Questionnaire NOW Care 07/01/24 23:57 Active Decision to Admit X1 Care 07/01/24 23:57 Completed EKG (ED Only) Stat Exams 07/01/24 21:47 Stop Req A1C [Glycohemoglobin w (eAG)] Stat Lab 07/01/24 23:48 Completed ABG [Arterial Blood Gas] Stat Lab 07/01/24 23:38 Completed Blood Culture (Lab) Stat Lab 07/01/24 23:36 Received CBC Stat Lab 07/01/24 22:19 Completed CMP [Comprehensive Metabolic Panel] Stat Lab 07/01/24 22:19 Completed Lactate (Lactic Acid) Stat Lab 07/01/24 22:19 Completed Lactate (Lactic Acid) Stat Lab 07/02/24 02:05 Results Magnesium Stat Lab 07/01/24 22:19 Completed Procalcitonin Stat Lab 07/01/24 22:19 Completed Budesonide Rt [Pulmicort Rt Fadumo] Med 07/01/24 22:13 Discontinued 0.5 mg INH X1 ONE Ipratropium [place] Rt Fadumo [Atrovent Rt Fadumo] Med 07/01/24 22:13 Discontinued 0.5 mg INH X1 ONE Levalbuterol Rt [Xopenex Rt Fadumo] Med 07/01/24 22:42 Discontinued 3.75 mg INH .STK-MED ONE Levalbuterol Rt [Xopenex Rt [place]ad[place]o] Med 07/01/24 22:13 Discontinued 5 mg INH X1 ONE Levalbuterol Rt [Xopenex Rt [place]ad[place]] Med 07/02/24 01:37 Discontinued 5 mg INH X1 ONE MethylPREDNISolone.* [SoluMEDROL Inj] Med 07/01/24 22:13 Discontinued 125 mg IVP X1 ONE Sodium Chloride 0.9% 1000 ml [Ns] 1,000 ml Med 07/01/24 23:13 Discontinued IV 999 mls/hr Sodium Chloride Rt [place]ad[place]o 0.9% [NS Rt Fad[place]o 0.9%] Med 07/01/24 22:13 Active 3 ml INH PRN PRN Sodium Chloride Rt [place]ad[place] 0.9% [NS Rt [place] 0.9%] Med 07/02/24 01:37 Active 3 ml INH PRN PRN cefTRIAXone/D5w 1gm IV premix [Rocephin/D5w 1gm IV Med 07/01/24 22:16 Discontinued premix] 50 ml IV X1 Vital Signs Vital signs: Vital Signs Temperature 97.9 F 07/01/24 22:05 Pulse Rate 115 H 07/01/24 22:05 Respiratory Rate 19 07/01/24 22:05 Blood Pressure 140/75 H 07/01/24 22:05 Pulse Oximetry (%) 95 07/01/24 22:05 Oxygen Delivery Method Room Air 07/01/24 22:05 O2 at 95% on RA and WNLs Shortness of Breath / Dyspnea MDM Narrative MDM Narrative:: 49F with history of asthma, DM, psych/drug use and NSTEMI presents to ED with 1 week of cough, N/V, and CP/SOB. Patient does smoke. Patient was here for the past 2 days this and diagnosed with PNA w/ wheezing. Patient had a CTA yesterday that confirmed PNA and no PE. Patient picked up her steroids and ABX (amoxicillin and Z-toni) and has been taking them. Physical exam reveals diffuse wheezing in lungs. Patient is afebrile, calm, and alert. Leukocytosis decreased from 25k to 17k. However, initial lactate trended from 4.5 up to 5.1 after IVF. Procal mildly elevated. CMP unremarkable except for glucose in 300s, likely due to steroids. Diffuse wheezing despite breathing tx and steroids. Audible wheezing and accessory muscle use upon ambulation. Spoke to two residents (including Dr. Rojas) of Dr. Harris, who all agree to admit patient. Patient data External records reviewed:: [facility] previous records Clinical information provided by:: patient Social determinants that could affect healthcare access:: substance use Patient has the following chronic illnesses:: asthma, DM, psych/drug use and NSTEMI How is presenting disease/condition affected by chronic disease/condition?: exacerbated by Evaluation data The following diagnostics were reviewed and interpreted by me:: lab results Lab and/or radiology exams considered but not ordered:: ordered Interpretation Summary: above Medications / Prescriptions Medications or Prescriptions considered but not ordered:: ordered Medication administrations:: Medication Administration History Acetaminophen (Acetaminophen 325 Mg Tablet) 650 mg PO Q6H PRN PRN Reason: PAIN SCALE 1-3 (mild Stop: 08/01/24 02:06 Dextrose (Dextrose 50%-Water Inj 50 Ml Syringe) 25 ml IV Q15MIN PRN PRN Reason: BG 50-70 responsive npo pt Stop: 08/01/24 02:06 Dextrose (Dextrose 50%-Water Inj 50 Ml Syringe) 50 ml IV Q15MIN PRN PRN Reason: BG <50 OR BG <70 & pt unresponsive Stop: 08/01/24 02:06 Glucagon (Glucagon Inj 1 Mg Vial) 1 mg IM Q15MIN PRN PRN Reason: BG <70, and no IV access Ceftriaxone Sodium/Dextrose (Rocephin/D5w 1gm Iv Premix) 50 mls @ 100 mls/hr IV QPM [facility] Stop: 07/09/24 20:59 Azithromycin 250 mg/ Sodium (Chloride) 250 mls @ 250 mls/hr IV QDAY [facility] Stop: 07/07/24 08:59 Sodium Chloride (Ns) 1,000 mls @ 80 mls/hr IV .[id number] [facility] Stop: 07/02/24 14:43 Last Admin: 07/02/24 03:20 Dose: 80 mls/hr Documented By: LEONARD Azithromycin 500 mg/ Sodium (Chloride) 250 mls @ 250 mls/hr IV X1 ONE Stop: 07/02/24 04:51 Insulin Human Lispro (Insulin Lispro (Admelog) 1 Unit/0.01 Ml Unit) 0 unit SC AC [facility]; Protocol Stop: 08/01/24 07:29 Levalbuterol HCl (Levalbuterol Rt 0.63 Mg/3 Ml Nebu) 0.63 mg INH Q6HR PRN PRN Reason: Wheezing Stop: 08/01/24 02:14 Ondansetron HCl (Ondansetron Inj 2 Mg/Ml Inj 2 Ml) 4 mg IV Q6H PRN; Protocol PRN Reason: NAUSEA OR VOMITING Stop: 08/01/24 02:02 Prednisone (Prednisone 20 Mg Tablet) 40 mg PO X1 ONE Stop: 07/02/24 09:01 Sennosides (Senna Tablet) 1 tab PO QDAY PRN; Protocol PRN Reason: constipation Stop: 08/01/24 02:02 Sodium Chloride (Sodium Chloride Rt Fadumo 0.9% 3 Ml Nebu) 3 ml INH PRN PRN PRN Reason: SOLN Stop: 07/31/24 22:12 Last Admin: 07/02/24 01:46 Dose: 3 ml Documented By: FANG Sodium Chloride (Sodium Chloride Rt Fadumo 0.9% 3 Ml Nebu) 3 ml INH PRN PRN PRN Reason: SOLN Stop: 08/01/24 01:36 Discontinued Medications Albuterol/Ipratropium (Albuterol/Ipratropium (Duoneb) Rt Fadumo 3 Ml Nebu) 3 ml INH Q6HR PRN PRN Reason: wheezing Stop: 08/01/24 02:06 Budesonide (Budesonide Rt 0.5 Mg/2 Ml Nebu) 0.5 mg INH X1 ONE Stop: 07/01/24 22:14 Last Admin: 07/01/24 22:48 Dose: 0.5 mg Documented By: FANG Ceftriaxone Sodium/Dextrose (Rocephin/D5w 1gm Iv Premix) 50 mls @ 100 mls/hr IV X1 ONE Stop: 07/01/24 22:45 Last Infusion: 07/02/24 01:28 Dose: Infused Documented By: JOSE MANUEL Admin: 07/01/24 22:36 Dose: 100 mls/hr Documented By: NOAH Sodium Chloride (Ns) 1,000 mls @ 999 mls/hr IV .Q1H1M ONE Stop: 07/02/24 00:13 Last Infusion: 07/02/24 01:28 Dose: Infused Documented By: JOSE MANUEL Admin: 07/01/24 23:53 Dose: 999 mls/hr Documented By: NOAH Azithromycin 500 mg/ Sodium (Chloride) 250 mls @ 250 mls/hr IV QDAY [facility] Stop: 07/09/24 02:09 Ipratropium [place] (Ipratropium Rt 0.5 Mg/ 2.5 Ml Nebu) 0.5 mg INH X1 ONE Stop: 07/01/24 22:14 Last Admin: 07/01/24 22:48 Dose: 0.5 mg Documented By: FANG Levalbuterol HCl (Levalbuterol Rt 1.25 Mg/0.5 Ml Nebu) 5 mg INH X1 ONE Stop: 07/01/24 22:14 Last Admin: 07/01/24 22:48 Dose: 5 mg Documented By: FANG Levalbuterol HCl (Levalbuterol Rt 1.25 Mg/0.5 Ml Nebu) Confirm Administered Dose 3.75 mg INH .STK-MED ONE Stop: 07/01/24 22:43 Last Admin: 07/01/24 23:53 Dose: Not Given Documented By: NOAH Non-Admin Reason: Discontinued Levalbuterol HCl (Levalbuterol Rt 1.25 Mg/0.5 Ml Nebu) 5 mg INH X1 ONE Stop: 07/02/24 01:38 Last Admin: 07/02/24 01:46 Dose: 5 mg Documented By: FANG Methylprednisolone Sodium Succinate (Methylprednisolone Sod Succ 62.5 Mg/Ml 2ml Vial) 125 mg IVP X1 ONE Stop: 07/01/24 22:14 Last Admin: 07/01/24 22:36 Dose: 125 mg Documented By: MP Sodium Chloride (Sodium Chloride Rt 10% 15 Ml Nebu) 5 ml INH X1 ONE Stop: 07/02/24 02:13 above Consultations Consultation(s) initiated? (list below): Yes Diagnosis Shortness of Breath Differential Diagnosis: acute exacerbation of chronic obstructive airways disease, congestive heart failure, community acquired pneumonia, asthma with exacerbation and pulmonary embolism Most likely diagnosis given after review of the tests above:: asthma exacerbation and CAP Admission Indicated Admission indicated?: indicated Admission Request Was there a request for admission?: Yes Admission Attestation Admission request attestation: Discussed case with [Dr. Rojas] from Hospitalist service regarding admission. Discussed patients ED course, exam findings, labs, and radiology results. The Hospitalist [agrees] to accept the patient for admission. Disposition Plan Disposition Plan: Admit Discharge Plan Plan Patient Disposition: Other Care w/in Hosp ([facility]) Problem List Clinical Impression: Asthma with exacerbation, CAP (community acquired pneumonia)
[2024-07-01] MEDS: cefTRIAXone/D5w 1gm IV premix 50 ML IV (22:36)
[2024-07-01] MEDS: MethylPREDNISolone SOD SUCC 62.5 MG/ML 2ML VIAL 125 MG IVP (22:36)
[2024-07-01 22:48] VITALS: PULSE 98; RESP 20; O2SAT 95
[2024-07-01] MEDS: LEVALBUTEROL RT 1.25 MG/0.5 ML NEBU 5 MG INH (22:48)
[2024-07-01] MEDS: BUDESONIDE RT 0.5 MG/2 ML NEBU INH (22:48)
[2024-07-01] MEDS: IPRATROPIUM RT 0.5 MG/ 2.5 ML NEBU INH (22:48)
[2024-07-01 23:06] LABS: Basophils % (Auto) 0 % (0-2.5); Eosinophils % (Auto) 0 % (0-10); Hematocrit 39.8 % (36.0-46.0); Hemoglobin 13.3 g/dL (12.0-16.0); Immature Granulocytes % (Auto) 1 % (0-0); Immature Granulocytes Auto 0.18 Thou/mm3 (0.00-0.00); Lymphocytes # (Auto) 2.5 Thou/mm3 (1.0-4.8); Lymphocytes % (Auto) 15 % (10-50); Mean Corpuscular HGB Conc 33.4 g/dl (31.0-37.0); Mean Corpuscular Volume 87 fL (80-100); Monocytes # (Auto) 1.1 Thou/mm3 (0.0-0.8); Monocytes % (Auto) 7 % (0-12); Neutrophils # (Auto) 12.8 Thou/mm3 (1.8-7.7); Neutrophils % (Auto) 77 % (37-80); Nucleated Red Blood Cell % 0 /100 WBC (0); Platelet Count 480 Thou/mm3 (140-440); RDW Standard Deviation 44.5 fL (36.4-46.3); Red Blood Count 4.58 Miln/mm3 (4.00-5.20); White Blood Count 16.6 Thou/mm3 (3.6-11.0)
[2024-07-01 23:09] LABS: Lactate (Lactic Acid) 4.5 mMol/L (0.4-2.0)
[2024-07-01 23:33] LABS: Alanine Aminotransferase 22 U/L (10-49); Albumin, Serum 4.9 gm/dL (3.5-5.0); Albumin/Globulin Ratio 1.9 (1.2-2.2); Alkaline Phosphatase 69 U/L (46-116); Anion Gap 9 (7-16); Aspartate Amino Transferase 17 U/L (0-34); BUN/Creatinine Ratio 18 Ratio (12-20); Bilirubin,Total 0.2 mg/dL (0.3-1.2); Blood Urea Nitrogen 18 mg/dL (9-23); Calcium 9.8 mg/dL (8.3-10.6); Calcium (Corrected) 9.8 mg/dL (8.5-10.1); Carbon Dioxide 21.6 mMol/L (20.0-31.0); Chloride 102 mMol/L (98-107); Estimated Creatinine Clearance 61.4 mL/min (>60); Globulin 2.6 gm/dL (2.3-3.5); Glucose 345 mg/dL (74-106); Magnesium 2.1 mg/dL (1.6-2.6); Osmolality,Calculated 282 (275-295); Potassium 3.9 mMol/L (3.4-5.1); Procalcitonin 2.01 ng/ml (0.0-0.49); Sodium 133 mMol/L (136-145); Total Protein 7.5 gm/dL (5.7-8.2); eGFR > 60 See Note
[2024-07-01 23:45] LABS: Base Excess -5 (-3-3); HCO3 20 mEq/L (20-26); Inspired Oxygen, FIO2 21 %; O2 Saturation 97 % (91-98); PCO2 34 mmHg (32.0-48.0); PO2 78 mmHg (83-108); pH, Arterial 7.38 (7.35-7.45)
[2024-07-01 23:51] LABS: Allen Test Performed/OK; Puncture Site Right Radial
[2024-07-01] MEDS: SODIUM CHLORIDE 0.9% 1000 ML 1,000 ML 999 ML IV (23:53)
[2024-07-02] VITALS (16 sets, daily range): BP systolic 104–155; BP diastolic 65–99; PULSE 70–96; RESP 16–97; TEMP 36–36.8; O2SAT 94–99; BMI 26.2
[2024-07-02 00:45] LABS: Glucose Estimated Average 169 mg/dL (80-131); Hemoglobin A1C 7.5 % Hgb (4.8-6.0)
[2024-07-02] MEDS: SODIUM CHLORIDE RT SOL 0.9% 3 ML NEBU INH (01:46)
[2024-07-02] MEDS: LEVALBUTEROL RT 1.25 MG/0.5 ML NEBU 5 MG INH (01:46)
[2024-07-02 01:49] LABS: Reflex Lactate? Y
--- NOTE | 2024-07-02 02:17 | PD.RESHP ---
Documentation for date of: 07/02/24 HPI History of Present Illness Chief complaint: Shortness of breath History of present illness: 49-year-old female with past medical history of abdominal hysterectomy at age 22 due to cervical cancer in situ, active smoker with [id number] history and likely undiagnosed COPD, diabetes (hemoglobin A1c currently 7.5, bipolar disorder, and polysubstance use disorder (meth and marijuana in the past), homeless living at half-way presenting with shortness of breath during exertion. Patient presented to the ED on 06/29 and 06/30 with similar complaints, was discharged from the ED with a Z-Christiano, amoxicillin, albuterol inhaler along with a course of steroids. Patient states that the shortness of breath started about a week ago and she has never felt short of breath prior to this episode; she denies having any fever/chills, chest pain, palpitations, diarrhea, melena, hematochezia or hematemesis. Patient does state that she has been vomiting a couple times after she coughs excessively; however, this is only happened infrequently. Patient is an active smoker and smokes about half a pack a day and states that while resting and sitting she does not feel short of breath. She does have the inhaler that she has started using but only sporadically when she feels overtly short of breath. Patient goes to [facility] for checkup; however, she states that she has not been in quite some time. Bedside is the patient's significant other who states that the patient went to [facility] about a week ago but they do not remember anything about examination at that time or medications that were given. Patient is somewhat of a poor historian secondary to some psychiatric underlying issue. 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 Patient smokes about half a pack a day for the past 37+ years, denies drinking alcohol, denies illicit drug use; however, from past documentation there is polysubstance use disorder as stated above. ROS: All 12 systems assessed and the patient denies unless otherwise stated in HPI. In the ED, patient presented with mild hypertension 140/75, heart rate in the 110s, respiratory rate 19, afebrile satting 95 on room air. Pertinent lab findings included WBC of 16.6, sodium 133, glucose 345, A1c 7.5, lactic acid 4.5. Chest x-ray from 06/30 shows scarring versus mild pneumonia in the lingular segment left upper lobe and CTA of chest shows no pulmonary artery emboli and mild pneumonia right upper lobe. Patient will be admitted for observation for COPD exacerbation versus pneumonia, will be treated with IV antibiotics and breathing treatments; will follow-up with cultures. Exam Vital Signs Temp Pulse Resp BP Pulse Ox O2 Del Method 98.0 F 88 20 127/85 H 95 Room Air 07/02/24 00:32 07/02/24 01:46 07/02/24 01:46 07/02/24 00:32 07/02/24 01:46 07/02/24 00:32 Narrative Exam GENERAL: Awake, flat affect, answering questions appropriately, appears stated age HEENT: NC/AT. Moist mucosa. PERRLA/EOMI. CARDIO: Heart RRR, no obvious murmurs, no JVD. PULM: Diffuse wheezing and rhonchi noted on upper and lower lung [place], no crackles auscultated. GI: Abdomen soft, NT/ND, +BS. SKIN/MSK/EXT: No wounds/discoloration/rashes/edema/amputations. +Pedal pulses present B/L. NEURO: Oriented x3, ribbon winder strength 5/5, Moves extremities x4. Results: Labs 07/02/24 04:20 07/02/24 04:20 Labs: Short CBC 07/01/24 Range/Units 22:19 WBC 16.6 H D (3.6-11.0) Thou/mm3 Hgb 13.3 (12.0-16.0) g/dL Hct 39.8 (36.0-46.0) % Plt Count 480 H (140-440) Thou/mm3 BMP 07/01/24 22:19 Sodium 133 L Potassium 3.9 Chloride 102 Carbon Dioxide 21.6 BUN 18 Creatinine 1.0 Glucose 345 H Calcium 9.8 Liver Function 07/01/24 Range/Units 22:19 Total Bilirubin 0.2 L (0.3-1.2) mg/dL AST 17 (0-34) U/L ALT 22 (10-49) U/L Alkaline Phosphatase 69 (46-116) U/L Albumin 4.9 (3.5-5.0) gm/dL ABG Interpretation ABG results: 07/01/24 23:38 ABG pH 7.38 ABG pCO2 34 ABG pO2 78 L ABG HCO3 20 ABG O2 Saturation 97 ABG Base Excess -5 L Quality Measures Quality Measures none Medications Home Medications and Allergies Allergies Allergy/AdvReac Type Severity Reaction Status Date / Time No Known Allergies Allergy Verified 07/01/24 21:27 Visit Medications Acetaminophen (Acetaminophen 325 Mg Tablet) 650 mg PO Q6H PRN PRN Reason: PAIN SCALE 1-3 (mild Stop: 08/01/24 02:06 Dextrose (Dextrose 50%-Water Inj 50 Ml Syringe) 25 ml IV Q15MIN PRN PRN Reason: BG 50-70 responsive npo pt Stop: 08/01/24 02:06 Dextrose (Dextrose 50%-Water Inj 50 Ml Syringe) 50 ml IV Q15MIN PRN PRN Reason: BG <50 OR BG <70 & pt unresponsive Stop: 08/01/24 02:06 Glucagon (Glucagon Inj 1 Mg Vial) 1 mg IM Q15MIN PRN PRN Reason: BG <70, and no IV access Ceftriaxone Sodium/Dextrose (Rocephin/D5w 1gm Iv Premix) 50 mls @ 100 mls/hr IV QDAY [facility] Stop: 07/09/24 08:59 Azithromycin 500 mg/ Sodium (Chloride) 250 mls @ 250 mls/hr IV QDAY [facility] Stop: 07/09/24 02:09 Azithromycin 250 mg/ Sodium (Chloride) 250 mls @ 250 mls/hr IV QDAY [facility] Stop: 07/07/24 08:59 Sodium Chloride (Ns) 1,000 mls @ 80 mls/hr IV .[id number] [facility] Stop: 07/02/24 14:43 Insulin Human Lispro (Insulin Lispro (Admelog) 1 Unit/0.01 Ml Unit) 0 unit SC AC [facility]; Protocol Stop: 08/01/24 07:29 Levalbuterol HCl (Levalbuterol Rt 0.63 Mg/3 Ml Nebu) 0.63 mg INH Q6HR PRN PRN Reason: Wheezing Stop: 08/01/24 02:14 Ondansetron HCl (Ondansetron Inj 2 Mg/Ml Inj 2 Ml) 4 mg IV Q6H PRN; Protocol PRN Reason: NAUSEA OR VOMITING Stop: 08/01/24 02:02 Sennosides (Senna Tablet) 1 tab PO QDAY PRN; Protocol PRN Reason: constipation Stop: 08/01/24 02:02 Sodium Chloride (Sodium Chloride Rt Fadumo 0.9% 3 Ml Nebu) 3 ml INH PRN PRN PRN Reason: SOLN Stop: 07/31/24 22:12 Last Admin: 07/02/24 01:46 Dose: 3 ml Sodium Chloride (Sodium Chloride Rt Fadumo 0.9% 3 Ml Nebu) 3 ml INH PRN PRN PRN Reason: SOLN Stop: 08/01/24 01:36 Discontinued Medications Albuterol/Ipratropium (Albuterol/Ipratropium (Duoneb) Rt Fadumo 3 Ml Nebu) 3 ml INH Q6HR PRN PRN Reason: wheezing Stop: 08/01/24 02:06 Budesonide (Budesonide Rt 0.5 Mg/2 Ml Nebu) 0.5 mg INH X1 ONE Stop: 07/01/24 22:14 Last Admin: 07/01/24 22:48 Dose: 0.5 mg Ceftriaxone Sodium/Dextrose (Rocephin/D5w 1gm Iv Premix) 50 mls @ 100 mls/hr IV X1 ONE Stop: 07/01/24 22:45 Last Infusion: 07/02/24 01:28 Dose: Infused Sodium Chloride (Ns) 1,000 mls @ 999 mls/hr IV .Q1H1M ONE Stop: 07/02/24 00:13 Last Infusion: 07/02/24 01:28 Dose: Infused Ipratropium [place] (Ipratropium Rt 0.5 Mg/ 2.5 Ml Nebu) 0.5 mg INH X1 ONE Stop: 07/01/24 22:14 Last Admin: 07/01/24 22:48 Dose: 0.5 mg Levalbuterol HCl (Levalbuterol Rt 1.25 Mg/0.5 Ml Nebu) 5 mg INH X1 ONE Stop: 07/01/24 22:14 Last Admin: 12/05/24 22:48 Dose: 5 mg Levalbuterol HCl (Levalbuterol Rt 1.25 Mg/0.5 Ml Nebu) 5 mg INH X1 ONE Stop: 07/02/24 01:38 Last Admin: 07/02/24 01:46 Dose: 5 mg Methylprednisolone Sodium Succinate (Methylprednisolone Sod Succ 62.5 Mg/Ml 2ml Vial) 125 mg IVP X1 ONE Stop: 07/01/24 22:14 Last Admin: 07/01/24 22:36 Dose: 125 mg Sodium Chloride (Sodium Chloride Rt 10% 15 Ml Nebu) 5 ml INH X1 ONE Stop: 07/02/24 02:13 Assessment & Plan Plan 49-year-old female with past medical history of abdominal hysterectomy at age 22 due to cervical cancer in situ, active smoker with [id number] history and likely undiagnosed COPD, diabetes (hemoglobin A1c currently 7.5, bipolar disorder, and polysubstance use disorder (meth and marijuana in the past), homeless living at half-way presenting with shortness of breath during exertion will be admitted for observation for COPD exacerbation versus pneumonia, will be treated with IV antibiotics and breathing treatments; will follow-up with cultures #COPD exacerbation #Pneumonia? #Lactic acidosis Patient has been having shortness of breath, especially with exertion for about 1 week Presented to the ED on 06/29 and 06/30 with elevated WBC Chest x-ray and CT at that time showed somewhat contradicting results; x-ray showed left-sided mild lingular pneumonia versus CTA which showed right upper lobe pneumonia Cocci negative Lactic acidosis likely secondary to steroid medications given in the ED In the ED on 07/01, patient was given one-time 125 mg IV methylprednisolone, ceftriaxone and breathing treatments Patient is satting 95-97 while resting; on ambulation satting 93 on room air Patient apparently was discharged with Z-Christiano, amoxicillin, inhaler and it is short course of steroids on 06/29 and has been taking them consistently but still has persistent shortness of breath Plan: Admit to observation On 80cc/hr of NS - will repeat lactic acid IV ceftriaxone and IV azithromycin Blood and sputum cultures sent RSV, influenza A&B rapid sent Breathing treatments 40 mg p.o. prednisone, taper Consider discharging patient on a LAMA/LABA for COPD #Dnf-[id number]-[id number] type 2 diabetes Last A1c 7.5 Plan: Sliding scale insulin Carb consistent diet #Hypertension? #History of NSTEMI Type 2? Patient apparently has presented in the past with elevated troponins Cardiology was consulted and they believed the chest pain/troponin elevation was secondary to drug use and not of cardiac etiology Med list states metoprolol tartrate 12.5mg po BID, Plavix and Asp? Plan: Med rec Patient blood pressure stable, will monitor #History of bipolar #Polysubstance use disorder #Tobacco, nicotine dependence Consider starting nicotine patch if the patient requests one Medication reconciliation for bipolar student services dean for polysubstance use disorder, supportive services for the patient Hospital Management: Lines: PIV Bowel: Senna as needed Diet: Carb consistent GI prophylaxis: not needed DVT prophylaxis: SCD Dispo: Observation for shortness of breath Code: Full Patient seen and examined with attending Dr. Harris and senior resident Dr. Crystal Toro, PGY-1 Attending Provider Attestation/Addendum Face to face evaluation was performed by me. I have personally seen and examined the patient. I discussed the assessment and plan with the entire medicine team. I reviewed available medical records, imaging studies, laboratory results. I agree with the above subjective data, objective findings, assessment and plan except as corrected by me or noted below SOB with activity PNA, bacterial, likely gram positive cocci COPD with acute exacerbation, due to above HLD Leyukocytosis Lactic acidosis Patient came to ED 06/29 the n12 as well, given high dose systemic steroids and breathing treatments, imaging report with infiltrate, leukocytosis and lactic acidosis present on admission. Admit with Abxs, systemic steroids, breathing Rxs. monitor course closely. CTA Fluid hydration,repeat lactate level again MED rec not completed, needs to be verified and appropriate home medications to be continued .
[2024-07-02 02:51] LABS: Lactate (Lactic Acid) 5.1 mMol/L (0.4-2.0)
[2024-07-02] MEDS: SODIUM CHLORIDE 0.9% 1000 ML 1,000 ML 80 ML IV (03:20)
--- NOTE | 2024-07-02 03:45 | PC.NURSE ---
Pt brought to Rm 9 at opprox 0325. Pt appears in NAD. Awaiting med/surg rm.
--- NOTE | 2024-07-02 03:48 | PC.NURSE ---
Attempt mad to contact admit
--- NOTE | 2024-07-02 03:54 | PC.RT ---
sputum culture sent to lab, pt expectorated a small thick yellow sputum.
[2024-07-02 03:55] LABS: Respiratory Syncytial Virus Ag Negative (Negative)
[2024-07-02 04:36] LABS: Basophils % (Auto) 0 % (0-2.5); Eosinophils % (Auto) 0 % (0-10); Hematocrit 35.4 % (36.0-46.0); Immature Granulocytes % (Auto) 1 % (0-0); Immature Granulocytes Auto 0.16 Thou/mm3 (0.00-0.00); Lymphocytes # (Auto) 1.1 Thou/mm3 (1.0-4.8); Lymphocytes % (Auto) 7 % (10-50); Mean Corpuscular HGB Conc 33.9 g/dl (31.0-37.0); Mean Corpuscular Hemoglobin 29.3 pg (25.0-35.0); Mean Corpuscular Volume 86 fL (80-100); Monocytes # (Auto) 0.2 Thou/mm3 (0.0-0.8); Monocytes % (Auto) 1 % (0-12); Neutrophils # (Auto) 12.8 Thou/mm3 (1.8-7.7); Neutrophils % (Auto) 90 % (37-80); Nucleated Red Blood Cell % 0 /100 WBC (0); Platelet Count 397 Thou/mm3 (140-440); RDW Standard Deviation 44.6 fL (36.4-46.3); White Blood Count 14.2 Thou/mm3 (3.6-11.0)
[2024-07-02 05:18] LABS: Anion Gap 10 (7-16); BUN/Creatinine Ratio 20 Ratio (12-20); Blood Urea Nitrogen 18 mg/dL (9-23); Calcium 8.1 mg/dL (8.3-10.6); Carbon Dioxide 17.9 mMol/L (20.0-31.0); Chloride 106 mMol/L (98-107); Creatinine (Component) 0.9 mg/dL (0.6-1.3); Estimated Creatinine Clearance 68.3 mL/min (>60); Glucose 390 mg/dL (74-106); Osmolality,Calculated 286 (275-295); Potassium 4.1 mMol/L (3.4-5.1); Sodium 134 mMol/L (136-145); eGFR > 60 See Note
[2024-07-02 05:26] LABS: Reflex Lactate? Y
--- NOTE | 2024-07-02 05:33 | PC.NURSE ---
Pt report called to Ti [facility]CEO. pt tken to by credit officer.
--- NOTE | 2024-07-02 06:30 | PC.NURSE ---
Addendum entered by Ti Phelps RN 07/02/24 06:32: Per house sup. In patient pharmacy will send to unit. Do not Non-Admin it. Original Note: Azithromoycin 500mg PO not in pyxis. Will let day shift nurse know and house sup know.
[2024-07-02 07:18] LABS: Lactic Acid, 3 HR 6.2 mMol/L (0.4-2.0)
--- NOTE | 2024-07-02 07:25 | PC.NURSE ---
Reported critical lactic of 6.2 to . Provider stated he would place orders and come see patient
[2024-07-02] MEDS: SODIUM CHLORIDE 0.9% 1000 ML 1,000 ML 999 ML IV (07:31)
--- NOTE | 2024-07-02 07:52 | ECHO_ITS ---
Transthoracic Echo Report Ht (in): 63 Wt (lb): 148 Exam Location: Portable Status: Inpatient Pumping Supervisor: Nakia Mcgee Indications: Procedure Performed: BP: 139 / 87 HR: 90 Rhythm: Tachycardia Technical Quality: Technically difficult study MEASUREMENTS (Male / Female) Normal Values 2D ECHO LVOT Diameter 1.8 cm LA Volume Index 23.3 cm?/m? 16 - 28 cm?/m? Ascending Aorta Diameter 2.9 cm M-MODE Aortic Root Diameter MM 2.6 cm LA Systolic Diameter MM 3.6 cm LA Ao Ratio MM 1.4 AV Cusp Separation MM 2.2 cm DOPPLER AV Peak Velocity 155.0 cm/s AV Peak Gradient 9.6 mmHg AV Mean Gradient 5.0 mmHg AV Velocity Time Integral 32.0 cm LVOT Peak Velocity 128.0 cm/s LVOT Peak Gradient 6.6 mmHg LVOT Velocity Time Integral 26.5 cm LVOT Cardiac Index 3482.5 cm?/min?m? AV Area Cont Eq vti 2.1 cm? AV Area Cont Eq pk 2.1 cm? MV Peak Velocity 119.0 cm/s MV Peak Gradient 5.7 mmHg MV Mean Velocity 79.1 cm/s MV Mean Gradient 3.0 mmHg MV Area PHT 4.9 cm? MR Peak Velocity 393.0 cm/s MR Peak Gradient 61.8 mmHg Mitral E Point Velocity 114.0 cm/s Mitral A Point Velocity 113.0 cm/s Mitral E to A Ratio 1.0 LV E' Lateral Velocity 9.8 cm/s Mitral E to LV E' Lateral Ratio 11.6 LV E' Septal Velocity 11.3 cm/s Mitral E to LV E' Septal Ratio 10.1 FINDINGS Left Ventricle Normal left ventricular size, wall thickness, systolic function with no obvious regional wall motion abnormalities. The ejection fraction is visually estimated at 55-60%. Right Ventricle The right ventricle is normal in size and systolic function. Left Atrium The left atrium is normal by two-dimensional, color flow and Doppler imaging with no structural abnormalities, no thrombus formation present. Right Atrium The right atrium is normal by two-dimensional imaging, color flow and Doppler imaging with no struct ural abnormalities, no thrombus formation present. Atrial Septum The interatrial septum appears normal with no evidence of a shunt. Aorta The aorta is normal by two-dimensional, color flow and Doppler interrogation. Mitral Valve The mitral valve is normal by two-dimensional, color flow and Doppler interrogation. There is mild m itral valve regurgitation. Aortic Valve The aortic valve is trileaflet and normal by two-dimensional, color flow and Doppler interrogation. There is no significant aortic valve regurgitation. Tricuspid Valve The tricuspid valve is normal by two-dimensional, color flow and Doppler interrogation. There is tra ce tricuspid valve regurgitation. Pulmonic Valve The pulmonic valve is not well visualized. There is no significant pulmonic valve regurgitation. Vessels The pulmonary artery appears normal. The inferior vena cava pulmonary and hepatic veins appear zabrina l. Pericardium The pericardium is normal by two-dimensional imaging. There is no significant pericardial effusion. CONCLUSIONS Normal LV size and function. Estimated EF 55-60% Normal RV size and function. Mild MR,Trace TR. Inocente Flores (Electronically Signed) Final Date: 05 July 2024 08:44
--- NOTE | 2024-07-02 08:12 | CHAP ---
Responded to Rapid Response. All was well. Spoke to and prayed for [patient who expressed gratitude.
--- NOTE | 2024-07-02 08:20 | XR_ITS ---
Examination: AP chest single view Technique one AP portable upright chest single view Examination date and time: July 02, 2024 0840 hours INDICATIONS: Sepsis protocol or shortness of breath today FINDINGS: Normal heart size No lobar pneumonia Mild vascular congestion Lordotic chest IMPRESSION: No pneumonia identified
[2024-07-02] MEDS: INSULIN LISPRO (AdmeLOG) 1 UNIT/0.01 ML UNIT SC ×3 (08:44→17:33)
[2024-07-02] MEDS: INSULIN GLARGINE (Lantus) 5 UNIT/0.05 ML (PER 5 UNITS) 10 UNIT SC ×2 (08:44→21:22)
[2024-07-02] MEDS: predniSONE 20 MG TABLET 40 MG PO (08:46)
[2024-07-02] MEDS: PIPER/TAZO INJ 4.5 GM in SODIUM CHLORIDE 0.9% (P) 100 ML IV (08:46)
[2024-07-02 08:50] LABS: Procalcitonin 1.05 ng/ml (0.0-0.49)
[2024-07-02 09:05] LABS: Beta Hydroxybutyrate 0.1 mmol/L (<0.6)
[2024-07-02] MEDS: VANCOMYCIN/NS 1 GM IVPB 200 ML IV ×2 (09:46→21:19)
--- NOTE | 2024-07-02 10:55 | PC.SS ---
Follow up note: Pt had rapid response this morning for sepsis. Pt is on IV fluids and IV antibiotic.
[2024-07-02 11:22] LABS: Cardiac Risk Estimate 4.8 RATIO (3.7-5.6); Cholesterol 171 mg/dL (132-200); HDL Cholesterol 36 mg/dL (40-60); LDL Cholesterol,Calculated 58 mg/dL (0-130); Triglycerides 386 mg/dL (30-150)
--- NOTE | 2024-07-02 11:53 | PC.SS ---
SS met with patient regarding her d/c plan. Pt is alert/oriented. Pt was admitted for SOB. Pt confirmed demographic and contact information is correct on facesheet. Pt resides at [facility]. Pt ambulates independently without assistance or DME. Pt is ok with all ADLs. 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 Patient?s pharmacy of choice is [facility] on [address]. Pt named her , Giuseppe Feliciano medical decision maker if she is unable. Patient?s choice is to return home at [facility] upon d/c. Pt states she is diabetic, has glucometer, and test strips. Pt states she followed up with PCP in May 2024. D/C plan: Return home, [facility] Next of Kin: Giuseppe Feliciano, , phone# [phone] PCP: Dr. Bhupendra Warren from [facility]. Address: Correct on facesheet
[2024-07-02 12:21] LABS: Troponin I < 0.002 ng/mL (0.0-0.045)
[2024-07-02 12:53] LABS: Collection Type, Urine Clean Catch
[2024-07-02 13:02] LABS: Bilirubin,Urine Negative (Negative); Blood,Urine Negative (Negative); Clarity,Urine Clear (Clear/Hazy); Color,Urine Lt-Yellow (Lt Yel-Yel); Glucose, Urine 4+ (Negative); Ketones,Urine Negative (Negative); Leukocyte Esterase,Urine Negative (Negative); Nitrite,Urine Negative (Negative); Protein,Urine Negative (Neg - Trace); RBC,Urine < 1 /hpf (0-3); Specific Gravity,Urine 1.013 (1.001-1.035); Squamous Epithelial Cell,Urine 2 /hpf (0-5); Urobilinogen,Urine Negative mg/dL (0.0-1.0); WBC,Urine < 1 /hpf (0-5)
[2024-07-02 13:23] LABS: Amphetamine/Methamp Scrn,U Negative (Negative); Barbiturate Screen,Urine Negative (Negative); Benzodiazepines Screen,Urine Negative (Negative); Benzoylecgonine Screen, Ur Negative (Negative); Fentanyl Screen,Urine Negative (Negative); Opiate Screen,Urine Positive (Negative); THC Screen,Urine Negative (Negative)
[2024-07-02 13:55] LABS: Lactate (Lactic Acid) 3.2 mMol/L (0.4-2.0)
--- NOTE | 2024-07-02 13:57 | ESPR_ITS ---
Documentation for date of: 07/02/24 Subjective Subjective Interval history: Patient seen today at the bedside found awake, alert, oriented x3. Patient had sepsis alert called due to vital signs and elevated lactic acid, labs were ordered including procal, blood cx, utox. Patient has some hx of drug use, Utox was ordered but patient hesitant to give urine sample. Patient also stated some shortness of breath, steroid medication was ordered. Exam Vital Signs Temp Pulse Resp BP Pulse Ox O2 Del Method 98.3 F 86 18 111/68 98 Room Air 07/02/24 11:47 07/02/24 11:47 07/02/24 11:47 07/02/24 11:47 07/02/24 11:47 07/02/24 11:47 Narrative Exam Physical Exam GENERAL: NAD, NC/AT, responsive/cooperative. AAOx3 HEENT: Moist mucosa. Eyes open, symmetrical, & clear CARDIO: No chest pain on palpation. Heart RRR, no obvious murmurs PULM: No noted coughing/dyspnea. Lungs wheezing bilaterally GI: Abdomen soft, nondistended, no pain on palpation. BSx4 URO/PRINT GRAPHIC DESIGNER:: No further abnormalities noted. SKIN/MSK/EXT: No wounds/rashes/edema/amputations, no pain on palpation. Pedal pulses present B/L NEURO: AAOx3, no focal neuro deficits Objective Labs 07/02/24 04:20 07/02/24 04:20 Labs: Laboratory Results - last 24 hr 07/01/24 07/01/24 07/02/24 22:19 23:38 00:14 WBC 16.6 H D RBC 4.58 Hgb 13.3 Hct 39.8 MCV 87 MCH 29.0 MCHC 33.4 RDW Std Deviation 44.5 Plt Count 480 H Neut % (Auto) 77 Lymph % (Auto) 15 Anson % (Auto) 7 Eos % (Auto) 0 Baso % (Auto) 0 Neut # (Auto) 12.8 H Lymph # (Auto) 2.5 Anson # (Auto) 1.1 H Eos # (Auto) 0.0 Baso # (Auto) 0.0 Immature Gran # (Auto) 0.18 H Absolute Nucleated RBC 0.00 Immature Gran % 1 H Nucleated RBC % 0 Puncture Site Right Radial ABG pH 7.38 ABG pCO2 34 ABG pO2 78 L ABG HCO3 20 ABG O2 Saturation 97 ABG Base Excess -5 L FiO2 21 Sodium 133 L Potassium 3.9 Chloride 102 Carbon Dioxide 21.6 Anion Gap 9 BUN 18 Creatinine 1.0 Estim Creat Clear Calc 61.4 eGFR > 60 BUN/Creatinine Ratio [address] Glu mg/dL 169 H Hemoglobin A1c 7.5 H Calculated Osmolality 282 Lactic Acid 4.5 H* Calcium 9.8 Corrected Calcium 9.8 Magnesium 2.1 Total Bilirubin 0.2 L AST 17 ALT 22 Alkaline Phosphatase 69 Troponin I Total Protein 7.5 Albumin 4.9 Globulin 2.6 Albumin/Globulin Ratio 1.9 Triglycerides Cholesterol LDL Cholesterol, Calc HDL Cholesterol Cholesterol/HDL Ratio Beta-Hydroxybutyrate/Acetoacetate Procalcitonin 2.01 H TSH Free T4 Ur Collection Type Urine Color Urine Clarity Urine pH Ur Specific Bison Urine Protein Urine Glucose (UA) Urine Ketones Urine Blood Urine Nitrite Urine Bilirubin Urine Urobilinogen (Auto) Ur Leukocyte Esterase Urine RBC Urine WBC Ur Squamous Epith Cells Urine Bacteria Urine Opiates Screen Urine Fentanyl Screen Ur Barbiturates Screen U Amphetamin/Meth Scrn U Benzodiazepines Scrn U Cocaine Metab Screen U Marijuana (THC) Screen RSV Rapid 07/02/24 07/02/24 07/02/24 02:05 03:04 04:20 WBC 14.2 H RBC 4.10 Hgb 12.0 Hct 35.4 L MCV 86 MCH 29.3 MCHC 33.9 RDW Std Deviation 44.6 Plt Count 397 D Neut % (Auto) 90 H Lymph % (Auto) 7 L Anson % (Auto) 1 Eos % (Auto) 0 Baso % (Auto) 0 Neut # (Auto) 12.8 H Lymph # (Auto) 1.1 Anson # (Auto) 0.2 Eos # (Auto) 0.0 Baso # (Auto) 0.0 Immature Gran # (Auto) 0.16 H Absolute Nucleated RBC 0.00 Immature Gran % 1 H Nucleated RBC % 0 Puncture Site ABG pH ABG pCO2 ABG pO2 ABG HCO3 ABG O2 Saturation ABG Base Excess FiO2 Sodium 134 L Potassium 4.1 Chloride 106 Carbon Dioxide 17.9 L Anion Gap 10 BUN 18 Creatinine 0.9 Estim Creat Clear Calc 68.3 eGFR > 60 BUN/Creatinine Ratio [address] Glu mg/dL Hemoglobin A1c Calculated Osmolality 286 Lactic Acid 5.1 H* Calcium 8.1 L D Corrected Calcium Magnesium Total Bilirubin AST ALT Alkaline Phosphatase Troponin I Total Protein Albumin Globulin Albumin/Globulin Ratio Triglycerides Cholesterol LDL Cholesterol, Calc HDL Cholesterol Cholesterol/HDL Ratio Beta-Hydroxybutyrate/Acetoacetate Procalcitonin 1.05 H TSH Free T4 Ur Collection Type Urine Color Urine Clarity Urine pH Ur Specific Bison Urine Protein Urine Glucose (UA) Urine Ketones Urine Blood Urine Nitrite Urine Bilirubin Urine Urobilinogen (Auto) Ur Leukocyte Esterase Urine RBC Urine WBC Ur Squamous Epith Cells Urine Bacteria Urine Opiates Screen Urine Fentanyl Screen Ur Barbiturates Screen U Amphetamin/Meth Scrn U Benzodiazepines Scrn U Cocaine Metab Screen U Marijuana (THC) Screen RSV Rapid Negative 07/02/24 07/02/24 07/02/24 06:30 08:20 09:30 WBC RBC Hgb Hct MCV MCH MCHC RDW Std Deviation Plt Count Neut % (Auto) Lymph % (Auto) Anson % (Auto) Eos % (Auto) Baso % (Auto) Neut # (Auto) Lymph # (Auto) Anson # (Auto) Eos # (Auto) Baso # (Auto) Immature Gran # (Auto) Absolute Nucleated RBC Immature Gran % Nucleated RBC % Puncture Site ABG pH ABG pCO2 ABG pO2 ABG HCO3 ABG O2 Saturation ABG Base Excess FiO2 Sodium Potassium Chloride Carbon Dioxide Anion Gap BUN Creatinine Estim Creat Clear Calc eGFR BUN/Creatinine Ratio Glucose Estimated Ave Glu mg/dL Hemoglobin A1c Calculated Osmolality Lactic Acid 6.2 H* Calcium Corrected Calcium Magnesium Total Bilirubin AST ALT Alkaline Phosphatase Troponin I Total Protein Albumin Globulin Albumin/Globulin Ratio Triglycerides 386 H Cholesterol 171 LDL Cholesterol, Calc 58 HDL Cholesterol 36 L Cholesterol/HDL Ratio 4.8 Beta-Hydroxybutyrate/Acetoacetate 0.1 Procalcitonin TSH 0.40 L Free T4 Ur Collection Type Clean Catch Urine Color Lt-Yellow Urine Clarity Clear Urine pH 6.0 Ur Specific Bison 1.013 Urine Protein Negative Urine Glucose (UA) 4+ A Urine Ketones Negative Urine Blood Negative Urine Nitrite Negative Urine Bilirubin Negative Urine Urobilinogen (Auto) Negative Ur Leukocyte Esterase Negative Urine RBC < 1 Urine WBC < 1 Ur Squamous Epith Cells 2 Urine Bacteria None Urine Opiates Screen Positive A Urine Fentanyl Screen Negative Ur Barbiturates Screen Negative U Amphetamin/Meth Scrn Negative U Benzodiazepines Scrn Negative U Cocaine Metab Screen Negative U Marijuana (THC) Screen Negative RSV Rapid 07/02/24 11:44 WBC RBC Hgb Hct MCV MCH MCHC RDW Std Deviation Plt Count Neut % (Auto) Lymph % (Auto) Anson % (Auto) Eos % (Auto) Baso % (Auto) Neut # (Auto) Lymph # (Auto) Anson # (Auto) Eos # (Auto) Baso # (Auto) Immature Gran # (Auto) Absolute Nucleated RBC Immature Gran % Nucleated RBC % Puncture Site ABG pH ABG pCO2 ABG pO2 ABG HCO3 ABG O2 Saturation ABG Base Excess FiO2 Sodium Potassium Chloride Carbon Dioxide Anion Gap BUN Creatinine Estim Creat Clear Calc eGFR BUN/Creatinine Ratio Glucose Estimated Ave Glu mg/dL Hemoglobin A1c Calculated Osmolality Lactic Acid Calcium Corrected Calcium Magnesium Total Bilirubin AST ALT Alkaline Phosphatase Troponin I < 0.002 Total Protein Albumin Globulin Albumin/Globulin Ratio Triglycerides Cholesterol LDL Cholesterol, Calc HDL Cholesterol Cholesterol/HDL Ratio Beta-Hydroxybutyrate/Acetoacetate Procalcitonin TSH Free T4 1.10 Ur Collection Type Urine Color Urine Clarity Urine pH Ur Specific Bison Urine Protein Urine Glucose (UA) Urine Ketones Urine Blood Urine Nitrite Urine Bilirubin Urine Urobilinogen (Auto) Ur Leukocyte Esterase Urine RBC Urine WBC Ur Squamous Epith Cells Urine Bacteria Urine Opiates Screen Urine Fentanyl Screen Ur Barbiturates Screen U Amphetamin/Meth Scrn U Benzodiazepines Scrn U Cocaine Metab Screen U Marijuana (THC) Screen RSV Rapid ABG Interpretation ABG results: 07/01/24 23:38 ABG pH 7.38 ABG pCO2 34 ABG pO2 78 L ABG HCO3 20 ABG O2 Saturation 97 ABG Base Excess -5 L Quality Measures Quality Measures none Assessment & Plan Assessment Current Active Medications: Generic Name Dose Route Start Last Admin Trade Name Freq PRN Reason Stop Dose Admin Acetaminophen 650 mg 07/02/24 02:07 Acetaminophen 325 Mg Tablet PO 08/01/24 02:06 Q6H PRN PAIN SCALE 1-3 (mild Azithromycin 250 mg 07/03/24 09:00 Azithromycin 250 Mg Tablet PO 07/10/24 08:59 QDAY CHRISTINA Dextrose 25 ml 07/02/24 02:07 Dextrose 50%-Water Inj 50 Ml Syringe IV 08/01/24 02:06 Q15MIN PRN BG 50-70 responsive npo pt Dextrose 50 ml 07/02/24 02:07 Dextrose 50%-Water Inj 50 Ml Syringe IV 08/01/24 02:06 Q15MIN PRN BG <50 OR BG <70 & pt unresponsive Glucagon 1 mg 07/02/24 02:07 Glucagon Inj 1 Mg Vial IM Q15MIN PRN BG <70, and no IV access Piperacillin/Tazobactam/Dextrose 50 mls @ 12.5 mls/hr 07/02/24 14:00 Zosyn IV 07/09/24 13:59 Q8HR CHRISTINA Protocol Vancomycin/Sodium Chloride 200 mls @ 120 mls/hr 07/02/24 10:00 07/02/24 09:46 Vancomycin/Ns 1 Gm Ivpb IV 07/09/24 09:59 120 mls/hr BID@1000,2200 CHRISTINA Administration Insulin Glargine 10 unit 07/02/24 21:00 Insulin Glargine (Lantus) 5 Unit/0.05 Ml (Per 5 Units) SC 08/01/24 20:59 BID CHRISTINA Insulin Human Lispro 0 unit 07/02/24 07:30 07/02/24 11:55 Insulin Lispro (Admelog) 1 Unit/0.01 Ml Unit SC 08/01/24 07:29 4 unit AC [facility] Administration Protocol Levalbuterol HCl 0.63 mg 07/02/24 02:15 Levalbuterol Rt 0.63 Mg/3 Ml Nebu INH 08/01/24 02:14 Q6HR PRN Wheezing Melatonin 3 mg 07/02/24 21:00 Melatonin 3 Mg Tablet PO 08/01/24 20:59 HS [facility] Ondansetron HCl 4 mg 07/02/24 02:03 Ondansetron Inj 2 Mg/Ml Inj 2 Ml IV 08/01/24 02:02 Q6H PRN NAUSEA OR VOMITING Protocol Pharmacy Consult 1 each 07/02/24 09:00 Vancomycin Pharmacy To Dose 1 Each Each IV 08/01/24 08:59 QDAY PRN CONSULT Sennosides 1 tab 07/02/24 02:03 Senna Tablet PO 08/01/24 02:02 QDAY PRN constipation Protocol Sodium Chloride 3 ml 07/02/24 01:37 Sodium Chloride Rt Fadumo 0.9% 3 Ml Nebu INH 08/01/24 01:36 PRN PRN SOLN Plan 49-year-old female with past medical history of abdominal hysterectomy at age 22 due to cervical cancer in situ, active smoker with [id number] history and likely undiagnosed COPD, diabetes (hemoglobin A1c currently 7.5, bipolar disorder, and polysubstance use disorder (meth and marijuana in the past), homeless living at correction presenting with shortness of breath during exertion will be admitted for observation for COPD exacerbation versus pneumonia, will be treated with IV antibiotics and breathing treatments; will follow-up with cultures #Sepsis secondary to pneumonia- low suspicion #COPD exacerbation #Lactic acidosis Patient has been having shortness of breath, especially with exertion for about 1 week CXR showed some left sided pneumonia CT showed some right upper lobe pneumonia Patient met SIRS 3/4 tachycardia, WBCs and elevated lactic acid, Sepsis alert was called Cocci negative lactic acidosis likely type B in setting of breathing treatments patient was in ER for 3 days in a row receiving breathing treatment and antibiotic therapy New CXR showed no evidence of pneumonia lactic acid already trending down procal somewhat elevated - f/u Blood cx - f/u sputum cx - on Vancomycin and zosyn - on azithromycin - on breathing treatments - on IV steroid medication #[id number] type 2 diabetes Last A1c 7.5 -Sliding scale insulin -Carb consistent diet #Hypertension? #History of NSTEMI Type 2? Patient apparently has presented in the past with elevated troponins Cardiology was consulted and they believed the chest pain/troponin elevation was secondary to drug use and not of cardiac etiology Lipid panel found adequate TSH was low - pending Med rec - BP monitoring #History of bipolar #Polysubstance use disorder #Tobacco, nicotine dependence Consider starting nicotine patch if the patient requests one Medication reconciliation for bipolar Patient denies any hx of drug abuse buit is hesitant to give urine sample - f/u Utox - director of child welfare services for supportive services Case discussed with my senior Dr. Nelson PGY-[address] Cora Reyes MD PGY-1 Disposition: Medtele Fluids: None Feeding: Carb consistent Thrombo prophylaxis: SCDs Gastric Ulcer prophylaxis: none CODE STATUS: Full code Senior resident attestation: I discussed with and supervised the product development intern physician who took care of this patient. I personally saw and examined the patient and discussed the assessment and plan with the entire medicine team, including my attending Dr. Shepherd , I agree with the assessment and plan as documented above. #Sepsis #Pneumonia #Acute hypoxic respiratory failure #COPD exacerbation #History of HFrEF #History of mitral valve disease #Lactic acidosis?possible B-type Patient evaluated bedside, was admitted from the emergency room due to COPD exacerbation, lactic acidosis, possible type B lactic acidosis due to multiple rounds of nebulization and history of albuterol use. Patient had a rapid response earlier in the morning, sepsis alert was initiated patient met criteria for sepsis based on SIRS criteria, chest imaging positive for mild right upper lobe pneumonia on CT. Leukocytosis positive, possible etiology of leukocytosis secondary to sepsis also possible reactive leukocytosis in the setting of steroid use, of note patient has had multiple ER visits in the past few days receiving steroids and breathing treatments. At time of evaluation patient alert oriented, in no acute distress, noted bilateral wheezing but saturating well on room air, blood pressure within normal limits. Chart review shows patient has history of HFrEF EF 40% as well as mitral regurg, patient received 1 L IV fluid bolus, and was started on maintenance fluids by admitting team, due to concern for HFrEF, repeat echocardiogram ordered, continue with IV fluids, lactic acid down trended. Antibiotics broadened to vancomycin and Zosyn to cover for unknown pathogen. MD Omar PGY2 Attending Provider Attestation/Addendum I have discussed and was present for the essential components of the history, physical examination, diagnosis, and treatment plan with the resident. I agree with the patient's care as documented by the resident and amended herein by me. Oesi Shepherd DO. Patient seen and evaluated this AM. In short, patient is a 49-year-old female with significant past medical history of abdominal hysterectomy at age 22 due to cervical cancer in situ, active smoker with [id number] history with apparent no desire to quit and possible COPD, type 2 diabetes, bipolar disorder and polysubstance abuse with, methamphetamines and marijuana in the past, patient states she has been clean for a year however refuses drug testing. Presently lives at a homeless correction, presented to the ED for shortness of breath, subsequently found to have a left-sided pneumonia and lactic acidosis, and later determined to be septic. Significant problems: #Sepsis secondary to pneumonia #Lactic acidosis, possible type B considering no apparent organ dysfunction #Possible COPD exacerbation, DM2, A1c 7.5 #History of polysubstance abuse to include methamphetamines #Current tobacco use, little desire to quit at this point #History of bipolar disorder No acute events overnight, rapid was called this morning however more of a formality for sepsis alert, no intervention was done at that time. Significant labs this morning include a WBC of 14.2 which is downtrending, hemoglobin 12, procalcitonin 2.01, initial ABG, demonstrating pH 7.38, pCO2 34, pO2 78, CMP significant for a bicarb of 17.9, glucose of 390, lactic acid of 6.2 however has since down trended to 3.2 after fluids, negative troponins, triglycerides 386, LDL 58, TSH low but free T41.10. Continue broad-spectrum antibiotics for now however can likely de-escalate tomorrow, blood and sputum cultures pending, will continue fluids for now and steroids, we also added azithromycin for COPD although may not be needed as the patient is not expectorating much sputum.. Patient will also started on basal bolus insulin as well as sliding scale. Patient refused nicotine patch. Will continue to monitor closely while she is here Although this document has been carefully reviewed, there may still be some phonetic and other typographical errors. These errors are purely grammatical due to imperfections in the software program and should not be construed in any way to compromise the substance of the patient's medical care during this visit.
[2024-07-02] MEDS: PIPER/TAZO 3.375 GM 50 ML IV ×2 (14:45→21:22)
--- NOTE | 2024-07-02 16:37 | PC.NURSE ---
Patient called to have money counted. 2 staff members present and counted money with patient to add to belongings sheet. Patient encouraged to place money in safe but is refusing. Patient then seen giving money to visitors at bedside
[2024-07-02 16:56] LABS: Reflex Lactate? Y
[2024-07-02 17:35] LABS: Lactic Acid, 3 HR 2.6 mMol/L (0.4-2.0)
[2024-07-02] MEDS: MELATONIN 3 MG TABLET PO (21:19)
[2024-07-02] MEDS: LEVALBUTEROL RT 0.63 MG/3 ML NEBU INH (23:34)
[2024-07-03 00:02] VITALS: PULSE 83
[2024-07-03 04:00] VITALS: BP 137/82; PULSE 76; RESP 19; TEMP 36.4; O2SAT 99
[2024-07-03 04:25] VITALS: PULSE 79
[2024-07-03] MEDS: PIPER/TAZO 3.375 GM 50 ML IV (05:00)
[2024-07-03 05:47] LABS: Basophils % (Auto) 0 % (0-2.5); Eosinophils % (Auto) 0 % (0-10); Hematocrit 36.5 % (36.0-46.0); Hemoglobin 12.4 g/dL (12.0-16.0); Immature Granulocytes % (Auto) 2 % (0-0); Immature Granulocytes Auto 0.29 Thou/mm3 (0.00-0.00); Lymphocytes # (Auto) 4.3 Thou/mm3 (1.0-4.8); Lymphocytes % (Auto) 32 % (10-50); Mean Corpuscular Hemoglobin 29.4 pg (25.0-35.0); Mean Corpuscular Volume 87 fL (80-100); Monocytes # (Auto) 0.9 Thou/mm3 (0.0-0.8); Monocytes % (Auto) 7 % (0-12); Neutrophils # (Auto) 8.2 Thou/mm3 (1.8-7.7); Neutrophils % (Auto) 59 % (37-80); Nucleated Red Blood Cell % 0 /100 WBC (0); Platelet Count 428 Thou/mm3 (140-440); RDW Standard Deviation 44.5 fL (36.4-46.3); Red Blood Count 4.22 Miln/mm3 (4.00-5.20); White Blood Count 13.7 Thou/mm3 (3.6-11.0)
[2024-07-03 06:22] LABS: Anion Gap 8 (7-16); BUN/Creatinine Ratio 19 Ratio (12-20); Blood Urea Nitrogen 15 mg/dL (9-23); Calcium 9.1 mg/dL (8.3-10.6); Carbon Dioxide 21.9 mMol/L (20.0-31.0); Chloride 106 mMol/L (98-107); Creatinine (Component) 0.8 mg/dL (0.6-1.3); Estimated Creatinine Clearance 76.6 mL/min (>60); Glucose 162 mg/dL (74-106); Osmolality,Calculated 276 (275-295); Potassium 3.3 mMol/L (3.4-5.1); Sodium 136 mMol/L (136-145); eGFR > 60 See Note
--- NOTE | 2024-07-03 07:42 | PC.NURSE ---
RN made MD aware of K 3.3. MD to place orders
[2024-07-03 08:00] VITALS: BP 130/95; PULSE 69; PULSE 81; RESP 17; TEMP 36.1; O2SAT 95
[2024-07-03] MEDS: AZITHROMYCIN 250 MG TABLET PO (11:17)
[2024-07-03] MEDS: POTASSIUM CHLORIDE 20 mEq TABCR 40 MEQ PO (11:17)
[2024-07-03] MEDS: INSULIN GLARGINE (Lantus) 5 UNIT/0.05 ML (PER 5 UNITS) 10 UNIT SC (11:18)
[2024-07-03] MEDS: VANCOMYCIN/NS 1 GM IVPB 200 ML IV (11:24)
[2024-07-03 12:00] VITALS: BP 148/97; PULSE 85; PULSE 86; RESP 18; TEMP 36.3; O2SAT 95
--- NOTE | 2024-07-03 13:08 | ESDS_ITS ---
<Statement entered by Ana Lilia Scott MD - 07/12/24 16:11> I reviewed above note and agree with findings and plans. I have also personally examined the patient with medicine team and went over assessment and plan with medical team including healthcare administration intern and resident physician. Planned Discharge Date 07/03/24 DS: Providers Provider Date of admission: 07/02/24 16:26 Primary care physician: Bhupendra Warren MD Admitting Provider: Anibal Harris MD Attending Provider on Admission: Victor Manuel Shepherd DO Attending Provider on DC: Nicko Reyes MD Discharging Provider: Nicko Reyes MD DS: Diagnosis Problem List Completed Was Problem List Reviewed/Reconciled?: Yes Hospital Course Hospital Course Hospital course: 49-year-old homeless female with past medical history of cervical cancer status post abdominal hysterectomy, active smoker with more than 20 pack years, diabetes, bipolar disorder, polysubstance use disorder including meth and marijuana presented to the ED with shortness of breath with exertion that started a week ago. Patient came to the ED about 3 days in a row with similar symptoms received breathing treatments and was discharged with Z-Christiano amoxicillin albuterol inhaler and some steroids. Admitted for observation for COPD exacerbation versus pneumonia. During hospital stay patient has sepsis alert called secondary to pneumonia patient was placed on IV antibiotics including vancomycin and Zosyn, cultures were drawn from negative. There was some concern for COPD exacerbation given the patient's extensive smoking history azithromycin was given, breathing treatments, and steroids medication. Patient has hx of polysubstance abuse, patient was counseled to abstain from drug use and smoking cessation. Prior to discharge patient requrested flu vaccine which was provided. Patient at this time is medically stable for discharge. Please follow-up echocardiogram results outpatient, follow-up with your primary care physician and your ediscovery project manager. Recommend medication compliance, follow dose instructions as prescribed. In case of worsening symptoms please return to the emergency room Problem list: #Sepsis-aborted #Pneumonia #COPD exacerbation #Lactic acidosis #[id number] type 2 diabetes #Hypertension #History of NSTEMI Type 2 #History of bipolar #Polysubstance use disorder #Tobacco, nicotine dependence Case discussed with my senior Dr. Nelson PGY-[address] Sonia Reyes MD PGY-1 Senior resident attestation: Patient evaluated and examined at the bedside, plan of care discussed with rest of the team including my attending physician, except as noted. Omar PGY2 Status at Discharge Functional status at discharge: independent ambulation Overall status at discharge: patient is back to baseline Time Spent with Patient Time attestation: Total time spent providing and/or coordinating discharge services: Time spent: Greater than 30 minutes Exam Vital Signs Temp Pulse Resp BP Pulse Ox O2 Del Method 97.4 F 86 18 148/97 H 95 Room Air 07/03/24 12:00 07/03/24 12:00 07/03/24 12:00 07/03/24 12:00 07/03/24 12:00 07/03/24 12:00 Discharge Plan Plan Patient Disposition: HOME (Self Care) Care Plan Goals: Please follow-up echocardiogram results outpatient, follow-up with your primary care physician and your ediscovery project manager. Recommend medication compliance, follow dose instructions as prescribed. In case of worsening symptoms please turn to the emergency room. Prescriptions/Referrals Prescriptions/Med Rec: New methylprednisolone [Medrol (Christiano)] 4 mg tablets,dose pack 4 mg PO QDAY Qty: 21 0RF metoprolol succinate 25 mg tablet extended release 24 hr 25 mg PO QDAY Qty: 30 0RF budesonide-formoterol 160-4.5 mcg/actuation HFA aerosol inhaler 1 puff inhalation BID Qty: 10.2 0RF tiotropium bromide 18 mcg capsule, w/inhalation device 1 cap inhalation QDAY Qty: 30 0RF Rx Instructions: puncture 1 cap using device; one dose = 2 inhalations Continued aspirin 81 mg tablet,delayed release (DR/EC) 81 mg PO QDAY Qty: 30 0RF clopidogrel [Plavix] 75 mg tablet 75 mg PO QDAY Qty: 30 0RF atorvastatin 40 mg tablet 40 mg PO QPM Qty: 30 0RF metformin 1,000 mg tablet 1,000 mg PO BID Qty: 60 0RF hydrocodone-acetaminophen 5-325 mg tablet 1 tab PO BID MDD 10 PRN (Reason: pain) Qty: 6 0RF azithromycin 250 mg tablet See Rx Instructions .ROUTE .COMPLEX Qty: 6 0RF Rx Instructions: For 250 mg dose pack: take 500 mg today (day 1), then 250 mg for 4 days (days 2-5) albuterol sulfate [Ventolin HFA] 90 mcg/actuation HFA aerosol inhaler 2 puff inhalation Q6H PRN (Reason: shortness of breath or wheezing) Qty: 8.5 0RF Discontinued metoprolol tartrate 25 mg Tablet 12.5 mg PO BID Qty: 60 0RF amoxicillin 875 mg tablet 875 mg PO TID 5 Days Qty: 15 0RF prednisone 20 mg tablet 40 mg PO QDAY 4 Days Qty: 8 0RF Referrals: Bhupendra Warren MD [Primary Care Provider] - Patient/Caregiver Discharge Instructions Education Materials: Asthma and COPD, Asthma Print Language: Icelandic Stand Alone Forms: Maureen Award Info., Patient Portal Info Letter Discharge Order Discharge Orders: Discharge (Routine); Ordered 07/03/24 Ordered By: Nicko Reyes Quality Discharge Quality Measures VTE prophylaxis
[2024-07-03] MEDS: INSULIN LISPRO (AdmeLOG) 1 UNIT/0.01 ML UNIT SC (13:51)
[2024-07-03 14:17] VITALS: PULSE 86; RESP 18; RESP 96; O2SAT 96
[2024-07-03] MEDS: INFLUENZA VIRUS QUADRIVALENT 0.5 ML SYRINGE IMi (15:25)
== END 2024-07-03 15:34 | disposition home or self-care (01) | DRG 139 ==
LOC: SERX 23:05 → SERHOLD 07-02 02:35 → S3SX 07-02 05:18
PROVIDERS: Physician Assistant; Student in an Organized Health Care Education/Training Program; Admitting Provider Internal Medicine; Emergency Provider Emergency Medicine; PCP Internal Medicine; Visit Provider Student in an Organized Health Care Education/Training Program
DX: J18.9 Pneumonia, unspecified organism (principal); J44.1 Chronic obstructive pulmonary disease with (acute) exacerbation; J44.0 Chronic obstructive pulmonary disease with (acute) lower respiratory infection; E87.20 Acidosis, unspecified; E11.9 Type 2 diabetes mellitus without complications; E78.5 Hyperlipidemia, unspecified; F31.9 Bipolar disorder, unspecified; I11.0 Hypertensive heart disease with heart failure; I25.2 Old myocardial infarction; I50.22 Chronic systolic (congestive) heart failure; F12.10 Cannabis abuse, uncomplicated; F15.10 Other stimulant abuse, uncomplicated; T38.0X5A Adverse effect of glucocorticoids and synthetic analogues, initial encounter; F17.210 Nicotine dependence, cigarettes, uncomplicated; Z59.01 Sheltered homelessness; Z85.41 Personal history of malignant neoplasm of cervix uteri; Z90.710 Acquired absence of both cervix and uterus; Z79.82 Long term (current) use of aspirin; Z79.899 Other long term (current) drug therapy; Z79.84 Long term (current) use of oral hypoglycemic drugs; Y92.230 Patient room in hospital as the place of occurrence of the external cause
CPT/HCPCS: 36415; 36600; 71045; 80048; 80053; 80061; 80202; 80307; 81001; 82010; 82803; 83036; 83605; 83735; 84145; 84439; 84443; 84484; 85025; 87040; 87077; 87081; 87086; 87186; 87205; 87400; 87502; 87634; 87811; 90686; 93306; 94640; 94644; 96361; 96374; 99285; J0696; J1815; J2543; J2919; J3370; J7030; J7512; A9270; J9060

== ENCOUNTER 2024-08-08 15:43 | Emergency (ER) | payer MEDICAID, SELFPAY ==
[2024-08-08 16:13] VITALS: BP 147/87; PULSE 72; RESP 18; TEMP 36.9; O2SAT 97; BMI 27.1
--- NOTE | 2024-08-08 16:25 | EDNOTE_ITS ---
Upper Extremity Injury RME/HPI General Chief Complaint: Hand/Wrist Problems Stated Complaint: OUT OF NORCO, CHRONIC RIGHT HAND PAIN Time Seen by Provider: 08/08/24 15:57 Arrival date/time: 08/08/24 15:43 This is a 49-year-old female that comes in with complaints of chronic carpal tunnel syndrome To the right wrist. Patient states that she ran out of her Boutte and wants a prescription of Boutte. Pt has not other complaints. Reports no trauma. Related Data Previous Rx's ?Medication ?Instructions ?Recorded aspirin 81 mg tablet,delayed 81 mg PO QDAY #30 tabs 09/29/20 release atorvastatin 40 mg tablet 40 mg PO QPM #30 tabs 09/29/20 clopidogrel 75 mg tablet (Plavix) 75 mg PO QDAY #30 tabs 09/29/20 metformin 1,000 mg tablet 1,000 mg PO BID #60 tabs 09/29/20 hydrocodone 5 mg-acetaminophen 325 1 tab PO BID PRN pain #6 tabs 09/16/23 mg tablet albuterol sulfate 90 mcg/actuation 2 puff inhalation Q6H PRN 06/30/24 aerosol inhaler (Ventolin HFA) shortness of breath or wheezing #8.5 grams azithromycin 250 mg tablet See Rx Instructions PO .COMPLEX #6 06/30/24 tabs budesonide-formoterol HFA 160 1 puff inhalation BID #10.2 grams 07/03/24 mcg-4.5 mcg/actuation aerosol inhaler methylprednisolone 4 mg tablets in 4 mg PO QDAY #21 tabs 07/03/24 a dose pack (Medrol (Christiano)) metoprolol succinate 25 mg 25 mg PO QDAY #30 tabs 07/03/24 tablet,extended release 24 hr tiotropium bromide 18 mcg capsule 1 cap inhalation QDAY #30 puffs 07/03/24 with inhalation device Allergies Allergy/AdvReac Type Severity Reaction Status Date / Time No Known Allergies Allergy Verified 08/08/24 15:46 Review of Systems Review of Systems Systems Reviewed: All systems reviewed, normal except as documented Past Medical History Past Medical History CARDIAC: Negative Cardiac Disorders or Congestive Heart Failure RESPIRATORY: Positive Asthma; Negative Chronic Obstructive Pulmonary Disease (COPD) GENITOURINARY: Negative Renal Disease ENDOCRINE: Positive Diabetes Mellitus Type 1 and Diabetes Mellitus Type 2 HEMATOLOGIC: Negative Sickle Cell Disease PSYCHO/SOCIAL: Positive Psychiatric Problems, Schizophrenia, Bipolar Disorder and Behavior Problems Surgical History SURGICAL: Positive Hysterectomy Social History SMOKING STATUS: Current every day smoker ED Exam General General appearance: Present alert and in no apparent distress Head Head exam: Present atraumatic Eye Eye exam: Present normal appearance, PERRL and EOMI ENT ENT exam: Present normal exam, normal oropharynx and mucous membranes moist Neck Neck exam: Present normal inspection, full ROM and trachea midline Chest Chest inspection: Present normal inspection and symmetric chest wall rise Respiratory Respiratory exam: Present normal lung sounds bilaterally Cardiovascular Cardiovascular exam: Present regular rate and normal rhythm Abdominal Exam Abdominal exam: Present soft Extremities Exam Extremities exam: Present normal inspection and full ROM Back Exam Back exam: Present normal inspection and full ROM Neurological Exam Neurological exam: Present alert, oriented X3 and CN II-XII intact Psychiatric Psychiatric exam: Present normal affect and normal mood Skin Skin exam: Present warm, dry, intact and normal color Course Quality Measures none Orders Category Date Time Status HYDROcodone/APAP 10/325 [Boutte 10/325] Med 08/08/24 16:26 Discontinued 1 tab PO X1 ONE Vital Signs Vital signs: Vital Signs Temperature 98.4 F 08/08/24 16:13 Pulse Rate 72 08/08/24 16:13 Respiratory Rate 18 08/08/24 16:13 Blood Pressure 147/87 H 08/08/24 16:13 Pulse Oximetry (%) 97 08/08/24 16:13 Oxygen Delivery Method Room Air 08/08/24 16:13 Extremity Injury MDM Narrative MDM Narrative:: I explained to patient at length that I can not give her a prescription for chronic pain. this will need to be done by her primart provider. I did treat her for her pain but told her to follow up wit primary provider for a prescription. Patient data External records reviewed:: [facility] previous records Clinical information provided by:: patient Social determinants that could affect healthcare access:: none Patient has the following chronic illnesses:: chronic carpal tunnel How is presenting disease/condition affected by chronic disease/condition?: exacerbated by (chronic carpal tunnel ) Evaluation data The following diagnostics were reviewed and interpreted by me:: other (specify) (none ) Lab and/or radiology exams considered but not ordered:: none Interpretation Summary: none Medications / Prescriptions Medications or Prescriptions considered but not ordered:: none Medication administrations:: Medication Administration History Discontinued Medications Hydrocodone Bitart/Acetaminophen (Hydrocodone/Apap 10/325 Tab) 1 tab PO X1 ONE Stop: 08/08/24 16:27 Last Admin: 08/08/24 17:04 Dose: 1 tab Documented By: see mar Consultations Consultation(s) initiated? (list below): No Diagnosis Upper Extremity Injury Differential Diagnosis: sprain and strain of wrist, fracture of wrist and other (chronic carpal tunnel ) Most likely diagnosis given after review of the tests above:: chronic pain Admission Indicated Admission indicated?: not indicated Admission Request Was there a request for admission?: No Disposition Plan Disposition Plan: Discharge Discharge Attestation Discharge Attestation: The patient and all family members were given an opportunity to ask questions and understood the discharge instructions. Discharge instructions specifically effects, indications for sooner follow up or return to the emergency department, and the expected course of current diagnosis. Patient condition: Stable Discharge Plan Plan Patient Disposition: HOME (Self Care) Patient condition on transfer: Stable Prescriptions/Referrals Prescriptions/Med Rec: No Action aspirin 81 mg tablet,delayed release (DR/EC) 81 mg PO QDAY Qty: 30 0RF clopidogrel [Plavix] 75 mg tablet 75 mg PO QDAY Qty: 30 0RF atorvastatin 40 mg tablet 40 mg PO QPM Qty: 30 0RF metformin 1,000 mg tablet 1,000 mg PO BID Qty: 60 0RF hydrocodone-acetaminophen 5-325 mg tablet 1 tab PO BID MDD 10 PRN (Reason: pain) Qty: 6 0RF methylprednisolone [Medrol (Christiano)] 4 mg tablets,dose pack 4 mg PO QDAY Qty: 21 0RF metoprolol succinate 25 mg tablet extended release 24 hr 25 mg PO QDAY Qty: 30 0RF budesonide-formoterol 160-4.5 mcg/actuation HFA aerosol inhaler 1 puff inhalation BID Qty: 10.2 0RF tiotropium bromide 18 mcg capsule, w/inhalation device 1 cap inhalation QDAY Qty: 30 0RF Rx Instructions: puncture 1 cap using device; one dose = 2 inhalations azithromycin 250 mg tablet See Rx Instructions .ROUTE .COMPLEX Qty: 6 0RF Rx Instructions: For 250 mg dose pack: take 500 mg today (day 1), then 250 mg for 4 days (days 2-5) albuterol sulfate [Ventolin HFA] 90 mcg/actuation HFA aerosol inhaler 2 puff inhalation Q6H PRN (Reason: shortness of breath or wheezing) Qty: 8.5 0RF Problem List Clinical Impression: Chronic pain of right wrist Patient/Caregiver Discharge Instructions Discharge Activity: activity as tolerated Education Materials: ED Chronic Pain, ED RICE Additional Instructions: Follow-up with primary provider in 1 to 2 days. Come back to the emergency room if symptoms change or worsen. Print Language: Croatian Stand Alone Forms: Maureen Award Info., Patient Portal Info Letter PA/CLIENT SERVICE PROFESSIONAL Supervising Physician PA/CLIENT SERVICE PROFESSIONAL Supervising Physician: michael
[2024-08-08] MEDS: HYDROcodone/APAP 10/325 TAB PO (17:04)
== END 2024-08-08 17:45 | disposition home or self-care (01) ==
PROVIDERS: Emergency Provider Emergency Medicine
DX: G56.01 Carpal tunnel syndrome, right upper limb (principal)
CPT/HCPCS: 99283; A9270

== ENCOUNTER 2024-08-25 14:25 | Emergency (ER) | payer MEDICAID, SELFPAY ==
[2024-08-25 14:25] VITALS: BMI 29.2
--- NOTE | 2024-08-25 14:44 | PD.EDHAND ---
Upper Extremity Injury RME/HPI General Chief Complaint: Hand/Wrist Problems Stated Complaint: RIGHT HAND PAIN Time Seen by Provider: 08/25/24 14:30 Arrival date/time: 08/25/24 14:25 49-year-old female with medical history significant for diabetes, hypertension, schizophrenia presents emergency department today requesting a [place] patient reports that she gets [place]'s at 120/month for her chronic hand pain patient reports that she ran out of her pain medication requesting a dose now Limitations: no limitations Related Data Previous Rx's ?Medication ?Instructions ?Recorded aspirin 81 mg tablet,delayed 81 mg PO QDAY #30 tabs 09/29/20 release atorvastatin 40 mg tablet 40 mg PO QPM #30 tabs 09/29/20 clopidogrel 75 mg tablet (Plavix) 75 mg PO QDAY #30 tabs 09/29/20 metformin 1,000 mg tablet 1,000 mg PO BID #60 tabs 09/29/20 hydrocodone 5 mg-acetaminophen 325 1 tab PO BID PRN pain #6 tabs 09/16/23 mg tablet albuterol sulfate 90 mcg/actuation 2 puff inhalation Q6H PRN 06/30/24 aerosol inhaler (Ventolin HFA) shortness of breath or wheezing #8.5 grams azithromycin 250 mg tablet See Rx Instructions PO .COMPLEX #6 06/30/24 tabs budesonide-formoterol HFA 160 1 puff inhalation BID #10.2 grams 07/03/24 mcg-4.5 mcg/actuation aerosol inhaler methylprednisolone 4 mg tablets in 4 mg PO QDAY #21 tabs 07/03/24 a dose pack (Medrol (Christiano)) metoprolol succinate 25 mg 25 mg PO QDAY #30 tabs 07/03/24 tablet,extended release 24 hr tiotropium bromide 18 mcg capsule 1 cap inhalation QDAY #30 puffs 07/03/24 with inhalation device Allergies Allergy/AdvReac Type Severity Reaction Status Date / Time No Known Allergies Allergy Verified 08/25/24 14:25 Review of Systems Review of Systems Systems Reviewed: All systems reviewed, normal except as documented Constitutional Constitutional: Reports system reviewed and no additional complaints, except as documented, Denies fever(s) and Denies headache(s) Eyes Eyes: Reports system reviewed and no additional complaints, except as documented and Denies blurry vision ENT Ears, Nose, Mouth, and Throat: Reports system reviewed and no additional complaints, except as documented, Denies headache(s), Denies nasal congestion and Denies nasal discharge Cardiovascular Cardiovascular: Reports system reviewed and no additional complaints, except as documented, Denies chest pain and Denies dyspnea Respiratory Respiratory: Reports system reviewed and no additional complaints, except as documented, Denies chest congestion, Denies cough and Denies dyspnea Gastrointestinal Gastrointestinal: Reports system reviewed and no additional complaints, except as documented and Denies abdominal pain Musculoskeletal Musculoskeletal: Reports system reviewed and no additional complaints, except as documented, Reports arthralgias and Denies deformity Integumentary/Breasts Skin/Breast: Reports system reviewed and no additional complaints, except as documented and Denies rash Neurologic Neurologic: Reports system reviewed and no additional complaints, except as documented, Reports as per HPI and Denies headache(s) Past Medical History Past Medical History CARDIAC: Negative Cardiac Disorders or Congestive Heart Failure RESPIRATORY: Positive Asthma; Negative Chronic Obstructive Pulmonary Disease (COPD) GENITOURINARY: Negative Renal Disease ENDOCRINE: Positive Diabetes Mellitus Type 1 and Diabetes Mellitus Type 2 HEMATOLOGIC: Negative Sickle Cell Disease PSYCHO/SOCIAL: Positive Psychiatric Problems, Schizophrenia, Bipolar Disorder and Behavior Problems Surgical History SURGICAL: Positive Hysterectomy Social History SMOKING STATUS: Current every day smoker ED Exam General Limitations: Present no limitations General appearance: Present alert and in no apparent distress Head Head exam: Present atraumatic Eye Eye exam: Present normal appearance, PERRL and EOMI ENT ENT exam: Present normal exam, normal oropharynx and mucous membranes moist Neck Neck exam: Present normal inspection, full ROM and trachea midline Chest Chest inspection: Present normal inspection and symmetric chest wall rise Respiratory Respiratory exam: Present normal lung sounds bilaterally Cardiovascular Cardiovascular exam: Present regular rate, normal rhythm and normal heart sounds Abdominal Exam Abdominal exam: Present soft and normal bowel sounds Extremities Exam Extremities exam: Present normal inspection and full ROM Back Exam Back exam: Present normal inspection and full ROM Neurological Exam Neurological exam: Present alert, oriented X3 and CN II-XII intact Psychiatric Psychiatric exam: Present normal affect and normal mood Skin Skin exam: Present warm, dry, intact and normal color Course Quality Measures none Orders Category Date Time Status HYDROcodone/APAP 10/325 [[place] 10/325] Med 08/25/24 14:37 Discontinued 1 tab PO X1 ONE Vital Signs Vital signs: O2 saturation 98% room air wnl Extremity Injury MDM Narrative MDM Narrative:: 49-year-old female with medical history significant for diabetes, hypertension, schizophrenia presents emergency department today requesting a [place] patient reports that she gets [place]'s at 120/month for her chronic hand pain patient reports that she ran out of her pain medication requesting a dose now Patient given 1 [place] patient will not be discharged home with any narcotic pain medications Patient discharged home in no distress to follow-up with primary care doctor in the next 24 to 48 hours and for any worsening symptoms to return to the ER immediately Patient data External records reviewed:: [facility] previous records Clinical information provided by:: patient Social determinants that could affect healthcare access:: none Patient has the following chronic illnesses:: None How is presenting disease/condition affected by chronic disease/condition?: no chronic disease Evaluation data The following diagnostics were reviewed and interpreted by me:: radiology exam(s) Lab and/or radiology exams considered but not ordered:: Radiology obtain Interpretation Summary: Reviewed by me Medications / Prescriptions Medications or Prescriptions considered but not ordered:: Given Medication administrations:: Medication Administration History Discontinued Medications Hydrocodone Bitart/Acetaminophen (Hydrocodone/Apap 10/325 Tab) 1 tab PO X1 ONE Stop: 08/25/24 14:38 Given Consultations Consultation(s) initiated? (list below): No Diagnosis Upper Extremity Injury Differential Diagnosis: other (Carpal tunnel, chronic pain, schizophrenia) Most likely diagnosis given after review of the tests above:: Chronic pain Admission Indicated Admission indicated?: not indicated Admission Request Was there a request for admission?: No Disposition Plan Disposition Plan: Discharge Discharge Attestation Discharge Attestation: The patient and all family members were given an opportunity to ask questions and understood the discharge instructions. Discharge instructions specifically effects, indications for sooner follow up or return to the emergency department, and the expected course of current diagnosis. Patient condition: Stable Discharge Plan Plan Patient Disposition: HOME (Self Care) Disposition Comment: Stable Prescriptions/Referrals Prescriptions/Med Rec: No Action aspirin 81 mg tablet,delayed release (DR/EC) 81 mg PO QDAY Qty: 30 0RF clopidogrel [Plavix] 75 mg tablet 75 mg PO QDAY Qty: 30 0RF atorvastatin 40 mg tablet 40 mg PO QPM Qty: 30 0RF metformin 1,000 mg tablet 1,000 mg PO BID Qty: 60 0RF hydrocodone-acetaminophen 5-325 mg tablet 1 tab PO BID MDD 10 PRN (Reason: pain) Qty: 6 0RF methylprednisolone [Medrol (Christiano)] 4 mg tablets,dose pack 4 mg PO QDAY Qty: 21 0RF metoprolol succinate 25 mg tablet extended release 24 hr 25 mg PO QDAY Qty: 30 0RF budesonide-formoterol 160-4.5 mcg/actuation HFA aerosol inhaler 1 puff inhalation BID Qty: 10.2 0RF tiotropium bromide 18 mcg capsule, w/inhalation device 1 cap inhalation QDAY Qty: 30 0RF Rx Instructions: puncture 1 cap using device; one dose = 2 inhalations azithromycin 250 mg tablet See Rx Instructions .ROUTE .COMPLEX Qty: 6 0RF Rx Instructions: For 250 mg dose pack: take 500 mg today (day 1), then 250 mg for 4 days (days 2-5) albuterol sulfate [Ventolin HFA] 90 mcg/actuation HFA aerosol inhaler 2 puff inhalation Q6H PRN (Reason: shortness of breath or wheezing) Qty: 8.5 0RF Problem List Clinical Impression: Chronic pain of right hand Patient/Caregiver Discharge Instructions Education Materials: ED LISY Additional Instructions: Please follow-up with your pain management doctor for refill on her medication for worsening symptoms return immediately Print Language: Kittitian Stand Alone Forms: Maureen Award Info., Patient Portal Info Letter PA/CHEESE SUPERVISOR Supervising Physician PA/MEGGAN Supervising Physician: Dr. Tillman
[2024-08-25 14:45] VITALS: BP 124/77; PULSE 78; RESP 16; TEMP 36.8; O2SAT 97
[2024-08-25] MEDS: HYDROcodone/APAP 10/325 TAB PO (15:17)
== END 2024-08-25 15:47 | disposition home or self-care (01) ==
LOC: SERX 15:24
PROVIDERS: Emergency Provider Emergency Medicine; PCP Family Medicine
DX: M79.641 Pain in right hand (principal); G89.29 Other chronic pain
CPT/HCPCS: 99283; A9270

== ENCOUNTER 2024-08-26 13:39 | Emergency (ER) | payer MEDICAID, SELFPAY ==
[2024-08-26 14:14] VITALS: BP 122/67; PULSE 81; RESP 18; TEMP 36.9; O2SAT 98; BMI 27.3
--- NOTE | 2024-08-26 14:24 | PD.EDHAND ---
Upper Extremity Injury RME/HPI General Chief Complaint: Hand/Wrist Problems Stated Complaint: RIGHT HAND PAIN Time Seen by Provider: 08/26/24 13:57 Source: patient Arrival date/time: 08/26/24 13:39 49-year-old female with a history of type 2 diabetes presents to the emergency room with a chief complaint of right-sided hand pain. Patient states he has a history of carpal tunnel, has been prescribed [place]'s but ran out of them. Mode of arrival: ambulatory Limitations: no limitations Related Data Previous Rx's ?Medication ?Instructions ?Recorded aspirin 81 mg tablet,delayed 81 mg PO QDAY #30 tabs 09/29/20 release atorvastatin 40 mg tablet 40 mg PO QPM #30 tabs 09/29/20 clopidogrel 75 mg tablet (Plavix) 75 mg PO QDAY #30 tabs 09/29/20 metformin 1,000 mg tablet 1,000 mg PO BID #60 tabs 09/29/20 hydrocodone 5 mg-acetaminophen 325 1 tab PO BID PRN pain #6 tabs 09/16/23 mg tablet albuterol sulfate 90 mcg/actuation 2 puff inhalation Q6H PRN 06/30/24 aerosol inhaler (Ventolin HFA) shortness of breath or wheezing #8.5 grams azithromycin 250 mg tablet See Rx Instructions PO .COMPLEX #6 06/30/24 tabs budesonide-formoterol HFA 160 1 puff inhalation BID #10.2 grams 07/03/24 mcg-4.5 mcg/actuation aerosol inhaler methylprednisolone 4 mg tablets in 4 mg PO QDAY #21 tabs 07/03/24 a dose pack (Medrol (Christiano)) metoprolol succinate 25 mg 25 mg PO QDAY #30 tabs 07/03/24 tablet,extended release 24 hr tiotropium bromide 18 mcg capsule 1 cap inhalation QDAY #30 puffs 07/03/24 with inhalation device Allergies Allergy/AdvReac Type Severity Reaction Status Date / Time No Known Allergies Allergy Verified 08/26/24 13:39 Review of Systems Review of Systems Systems Reviewed: All systems reviewed, normal except as documented Constitutional Constitutional: Reports system reviewed and no additional complaints, except as documented, Denies fatigue, Denies fever(s), Denies headache(s) and Denies weakness Eyes Eyes: Reports system reviewed and no additional complaints, except as documented, Denies blurry vision and Denies change in vision ENT Ears, Nose, Mouth, and Throat: Reports system reviewed and no additional complaints, except as documented, Denies otalgia, Denies headache(s), Denies nasal congestion, Denies throat swelling and Denies vertigo Cardiovascular Cardiovascular: Reports system reviewed and no additional complaints, except as documented, Denies chest pain, Denies dyspnea and Denies dyspnea on exertion Respiratory Respiratory: Reports system reviewed and no additional complaints, except as documented, Denies chest congestion, Denies cough, Denies dyspnea, Denies dyspnea on exertion and Denies wheezing Gastrointestinal Gastrointestinal: Reports system reviewed and no additional complaints, except as documented, Denies abdominal pain, Denies cramping, Denies nausea and Denies vomiting Genitourinary Genitourinary: Reports system reviewed and no additional complaints, except as documented Musculoskeletal Musculoskeletal: Reports system reviewed and no additional complaints, except as documented, Reports arthralgias, Denies back pain, Denies joint swelling, Denies numbness, Denies stiffness and Denies tingling Integumentary/Breasts Skin/Breast: Reports system reviewed and no additional complaints, except as documented and Denies wounds Neurologic Neurologic: Reports system reviewed and no additional complaints, except as documented, Denies confusion, Denies headache(s), Denies lack of coordination, Denies numbness, Denies tingling, Denies vertigo and Denies weakness Psychiatric Psychiatric: Reports system reviewed and no additional complaints, except as documented, Denies anxiety, Denies confusion, Denies depression, Denies paranoia, Denies suicidal ideation and Denies tactile hallucinations Endocrine Endocrine: Reports system reviewed and no additional complaints, except as documented and Denies fatigue Hematologic/Lymphatic Hematologic/Lymphatic: Reports system reviewed and no additional complaints, except as documented and Denies lymphadenopathy Allergic/Immunologic Allergic/Immunologic: Reports system reviewed and no additional complaints, except as documented, Denies throat swelling, Denies urticaria and Denies wheezing Past Medical History Past Medical History CARDIAC: Negative Cardiac Disorders or Congestive Heart Failure RESPIRATORY: Positive Asthma; Negative Chronic Obstructive Pulmonary Disease (COPD) GENITOURINARY: Negative Renal Disease ENDOCRINE: Positive Diabetes Mellitus Type 1 and Diabetes Mellitus Type 2 HEMATOLOGIC: Negative Sickle Cell Disease PSYCHO/SOCIAL: Positive Psychiatric Problems, Schizophrenia, Bipolar Disorder and Behavior Problems Surgical History SURGICAL: Positive Hysterectomy Social History SMOKING STATUS: Current every day smoker ED Exam General Limitations: Present no limitations General appearance: Present alert and in no apparent distress Head Head exam: Present atraumatic, normocephalic and normal inspection Eye Eye exam: Present normal appearance, PERRL and EOMI ENT ENT exam: Present normal exam, normal oropharynx and mucous membranes moist Neck Neck exam: Present normal inspection, full ROM and trachea midline Chest Chest inspection: Present normal inspection and symmetric chest wall rise Respiratory Respiratory exam: Present normal lung sounds bilaterally Cardiovascular Cardiovascular exam: Present regular rate, normal rhythm and normal heart sounds Abdominal Exam Abdominal exam: Present soft and normal bowel sounds Extremities Exam Extremities exam: Present normal inspection and full ROM Back Exam Back exam: Present normal inspection and full ROM Neurological Exam Neurological exam: Present alert, oriented X3 and CN II-XII intact Psychiatric Psychiatric exam: Present normal affect and normal mood Skin Skin exam: Present warm, dry, intact and normal color Course Quality Measures none Orders Category Date Time Status Ketorolac Inj [Toradol Inj] Med 08/26/24 14:22 Discontinued 30 mg IM X1 ONE Vital Signs Vital signs: Vital Signs Temperature 98.5 F 08/26/24 14:14 Pulse Rate 81 08/26/24 14:14 Respiratory Rate 18 08/26/24 14:14 Blood Pressure 122/67 08/26/24 14:14 Pulse Oximetry (%) 98 08/26/24 14:14 Oxygen Delivery Method Room Air 08/26/24 14:14 Extremity Injury MDM Narrative MDM Narrative:: 49-year-old female with a history of type 2 diabetes presents to the emergency room with a chief complaint of right-sided hand pain. Patient states he has a history of carpal tunnel, has been prescribed Livermore's but ran out of them. The patient is hemodynamically stable and none toxic appearing. Physical examination shows tenderness and pain to the patient's wrist with palpation. Patient states she is going to have surgery the first week of August for her carpal tunnel. Patient states she normally has a prescription for Liver[place]'s from her PCP but states she ran out of her medication faster than she was supposed to and she cannot get a refill on a at this time. I spoke to the patient and told her that Toradol will work better for the patient's symptoms as it also has anti-inflammatory effects. Patient agreed and the patient was given a shot of Toradol for her pain. Patient was discharged and educated to follow-up with primary care provider and return to the emergency room for any evidence of worsening signs or symptoms Patient data External records reviewed:: [facility] previous records Clinical information provided by:: patient Social determinants that could affect healthcare access:: none Patient has the following chronic illnesses:: No chronic illness How is presenting disease/condition affected by chronic disease/condition?: no chronic disease Evaluation data The following diagnostics were reviewed and interpreted by me:: lab results and radiology exam(s) Lab and/or radiology exams considered but not ordered:: Labs and radiology exams considered and ordered Interpretation Summary: N/A Medications / Prescriptions Medications or Prescriptions considered but not ordered:: Medication given Medication administrations:: Medication Administration History Discontinued Medications Ketorolac Tromethamine (Ketorolac Inj 60 Mg/2 Ml Vial) 30 mg IM X1 ONE Stop: 08/26/24 14:23 Last Admin: 08/26/24 14:53 Dose: 30 mg Documented By: Medication given Consultations Consultation(s) initiated? (list below): No Diagnosis Upper Extremity Injury Differential Diagnosis: sprain and strain of wrist and other (Carpal tunnel) Most likely diagnosis given after review of the tests above:: Carpal tunnel Admission Indicated Admission indicated?: not indicated Admission Request Was there a request for admission?: No Disposition Plan Disposition Plan: Discharge Discharge Attestation Discharge Attestation: The patient and all family members were given an opportunity to ask questions and understood the discharge instructions. Discharge instructions specifically effects, indications for sooner follow up or return to the emergency department, and the expected course of current diagnosis. Patient condition: Stable Discharge Plan Plan Patient Disposition: HOME (Self Care) Disposition Comment: Stable Prescriptions/Referrals Prescriptions/Med Rec: No Action aspirin 81 mg tablet,delayed release (DR/EC) 81 mg PO QDAY Qty: 30 0RF clopidogrel [Plavix] 75 mg tablet 75 mg PO QDAY Qty: 30 0RF atorvastatin 40 mg tablet 40 mg PO QPM Qty: 30 0RF metformin 1,000 mg tablet 1,000 mg PO BID Qty: 60 0RF hydrocodone-acetaminophen 5-325 mg tablet 1 tab PO BID MDD 10 PRN (Reason: pain) Qty: 6 0RF methylprednisolone [Medrol (Christiano)] 4 mg tablets,dose pack 4 mg PO QDAY Qty: 21 0RF metoprolol succinate 25 mg tablet extended release 24 hr 25 mg PO QDAY Qty: 30 0RF budesonide-formoterol 160-4.5 mcg/actuation HFA aerosol inhaler 1 puff inhalation BID Qty: 10.2 0RF tiotropium bromide 18 mcg capsule, w/inhalation device 1 cap inhalation QDAY Qty: 30 0RF Rx Instructions: puncture 1 cap using device; one dose = 2 inhalations azithromycin 250 mg tablet See Rx Instructions .ROUTE .COMPLEX Qty: 6 0RF Rx Instructions: For 250 mg dose pack: take 500 mg today (day 1), then 250 mg for 4 days (days 2-5) albuterol sulfate [Ventolin HFA] 90 mcg/actuation HFA aerosol inhaler 2 puff inhalation Q6H PRN (Reason: shortness of breath or wheezing) Qty: 8.5 0RF Problem List Clinical Impression: Chronic pain of right hand Patient/Caregiver Discharge Instructions Education Materials: ED Chronic Pain Additional Instructions: Please follow-up with your primary care provider in the next 24 to 48 hours. Medication was given to you to help you with your pain. For refilling your prescription you will need to follow-up with your primary care provider. For any evidence of worsening signs or symptoms please return to the emergency room immediately Print Language: Australian Stand Alone Forms: Maureen Award Info., Patient Portal Info Letter PA/MEGGAN Supervising Physician FARHEEN/MEGGAN Supervising Physician: Dr. Tillman
[2024-08-26] MEDS: KETOROLAC INJ 60 MG/2 ML VIAL 30 MG IM (14:53)
== END 2024-08-26 15:13 | disposition home or self-care (01) ==
LOC: SERX 15:07
PROVIDERS: Emergency Provider Emergency Medicine
DX: G89.29 Other chronic pain (principal); M79.641 Pain in right hand; E11.9 Type 2 diabetes mellitus without complications; F17.210 Nicotine dependence, cigarettes, uncomplicated
CPT/HCPCS: 96372; 99283; J1885

== ENCOUNTER 2024-09-13 21:55 | Emergency (ER) | payer MEDICAID, SELFPAY ==
[2024-09-13 21:56] VITALS: BMI 26.5
[2024-09-13 22:26] VITALS: BP 115/76; PULSE 71; RESP 18; TEMP 36.9; O2SAT 95
--- NOTE | 2024-09-13 22:40 | XR_ITS ---
Examination: PA lateral chest 2 views Technique: Upright PA lateral chest 2 views Exam date and time: September 13, 2024 10:42 PM Indications: Coughing several days Findings: Normal heart size No pneumonia or pulmonary edema The osseous structures are intact Impression: No pneumonia or pulmonary edema
--- NOTE | 2024-09-13 22:41 | PD.EDRME ---
Rapid Medical Screening Exam [facility] Arrival date/time: 09/13/24 21:55 49-year-old female past medical history of COPD and everyday smoker presents emergency department complaining of cough and right wrist pain. Patient reports right wrist pain is chronic and is pending surgical intervention for carpal tunnel. Chief Complaint: Flu Like Symptoms Time Seen by Provider: 09/13/24 22:30 Vital signs: Vital Signs Temperature 98.4 F 09/13/24 22:26 Pulse Rate 71 09/13/24 22:26 Respiratory Rate 18 09/13/24 22:26 Blood Pressure 115/76 09/13/24 22:26 Pulse Oximetry (%) 95 09/13/24 22:26 Oxygen Delivery Method Room Air 09/13/24 22:26 Vital signs reviewed by provider: Yes
[2024-09-13] MEDS: HYDROcodone/APAP 5/325 TABLET 1 TAB PO (22:44)
--- NOTE | 2024-09-13 23:27 | PD.EDURI ---
Upper Respiratory Inf. RME/HPI General Chief Complaint: Flu Like Symptoms Stated Complaint: FLU LIKE SYMPTOMS Time Seen by Provider: 09/13/24 22:30 Source: patient Arrival date/time: 09/13/24 21:55 49-year-old female past medical history of COPD and everyday smoker presents emergency department complaining of cough and right wrist pain. Patient reports right wrist pain is chronic and is pending surgical intervention for carpal tunnel. Patient denies any fever, chills, vomiting, extremity weakness, loss in sensation, or any other associated symptom. Mode of arrival: ambulatory Limitations: no limitations RME / HPI RME / HPI Narrative: 09/13/24 21:55 49-year-old female past medical history of COPD and everyday smoker presents emergency department complaining of cough and right wrist pain. Patient reports right wrist pain is chronic and is pending surgical intervention for carpal tunnel. Related Data Previous Rx's ?Medication ?Instructions ?Recorded aspirin 81 mg tablet,delayed 81 mg PO QDAY #30 tabs 09/29/20 release atorvastatin 40 mg tablet 40 mg PO QPM #30 tabs 09/29/20 clopidogrel 75 mg tablet (Plavix) 75 mg PO QDAY #30 tabs 09/29/20 metformin 1,000 mg tablet 1,000 mg PO BID #60 tabs 09/29/20 hydrocodone 5 mg-acetaminophen 325 1 tab PO BID PRN pain #6 tabs 09/16/23 mg tablet albuterol sulfate 90 mcg/actuation 2 puff inhalation Q6H PRN 06/30/24 aerosol inhaler (Ventolin HFA) shortness of breath or wheezing #8.5 grams azithromycin 250 mg tablet See Rx Instructions PO .COMPLEX #6 06/30/24 tabs budesonide-formoterol HFA 160 1 puff inhalation BID #10.2 grams 07/03/24 mcg-4.5 mcg/actuation aerosol inhaler methylprednisolone 4 mg tablets in 4 mg PO QDAY #21 tabs 07/03/24 a dose pack (Medrol (Christiano)) metoprolol succinate 25 mg 25 mg PO QDAY #30 tabs 07/03/24 tablet,extended release 24 hr tiotropium bromide 18 mcg capsule 1 cap inhalation QDAY #30 puffs 07/03/24 with inhalation device ibuprofen 600 mg tablet 600 mg PO Q8H PRN pain #20 tabs 09/13/24 Allergies Allergy/AdvReac Type Severity Reaction Status Date / Time No Known Allergies Allergy Verified 09/13/24 21:58 Review of Systems Review of Systems Systems Reviewed: All systems reviewed, normal except as documented Constitutional Constitutional: Reports system reviewed and no additional complaints, except as documented, Denies body ache(s), Denies chills and Denies fever(s) Eyes Eyes: Reports system reviewed and no additional complaints, except as documented and Denies change in vision ENT Ears, Nose, Mouth, and Throat: Reports system reviewed and no additional complaints, except as documented, Denies disequilibrium, Denies dizziness, Denies sore throat and Denies vertigo Cardiovascular Cardiovascular: Reports system reviewed and no additional complaints, except as documented, Denies chest pain and Denies dyspnea Respiratory Respiratory: Reports system reviewed and no additional complaints, except as documented, Denies chest congestion, Reports cough and Denies dyspnea Gastrointestinal Gastrointestinal: Reports system reviewed and no additional complaints, except as documented, Denies abdominal pain, Denies nausea and Denies vomiting Musculoskeletal Musculoskeletal: Reports system reviewed and no additional complaints, except as documented, Denies abnormal gait and Reports arthralgias Integumentary/Breasts Skin/Breast: Reports system reviewed and no additional complaints, except as documented, Denies erythema, Denies rash and Denies wounds Neurologic Neurologic: Reports system reviewed and no additional complaints, except as documented, Denies abnormal gait, Denies disequilibrium, Denies dizziness and Denies vertigo Past Medical History Past Medical History CARDIAC: Negative Cardiac Disorders or Congestive Heart Failure RESPIRATORY: Positive Asthma; Negative Chronic Obstructive Pulmonary Disease (COPD) GENITOURINARY: Negative Renal Disease ENDOCRINE: Positive Diabetes Mellitus Type 1 and Diabetes Mellitus Type 2 HEMATOLOGIC: Negative Sickle Cell Disease PSYCHO/SOCIAL: Positive Psychiatric Problems, Schizophrenia, Bipolar Disorder and Behavior Problems Surgical History SURGICAL: Positive Hysterectomy Social History SMOKING STATUS: Current some day smoker ED Exam General Limitations: Present no limitations General appearance: Present alert and in no apparent distress Head Head exam: Present atraumatic Eye Eye exam: Present normal appearance, PERRL and EOMI ENT ENT exam: Present normal exam, normal oropharynx and mucous membranes moist Neck Neck exam: Present normal inspection, full ROM and trachea midline Chest Chest inspection: Present normal inspection and symmetric chest wall rise Respiratory Respiratory exam: Present normal lung sounds bilaterally Cardiovascular Cardiovascular exam: Present regular rate, normal rhythm and normal heart sounds Abdominal Exam Abdominal exam: Present soft and normal bowel sounds Extremities Exam Extremities exam: Present normal inspection and full ROM Expanded Upper Extremity Exam Forearm/Wrist exam: Present full ROM; Absent tenderness, swelling, deformity or erythema Vascular exam: Normal capillary refill Back Exam Back exam: Present normal inspection and full ROM Neurological Exam Neurological exam: Present alert, oriented X3 and CN II-XII intact Psychiatric Psychiatric exam: Present normal affect and normal mood Skin Skin exam: Present warm, dry, intact and normal color Course Quality Measures none Orders Category Date Time Status Bedside Influenza A&B Antigen Test NOW Care 09/13/24 22:40 Completed XR chest 2V Stat Exams 09/13/24 22:40 Completed HYDROcodone*/APAP 5/325 [[place] 5/325] Med 09/13/24 22:40 Discontinued 1 tab PO X1 ONE Vital Signs Vital signs: Vital Signs Temperature 98.4 F 09/13/24 22:26 Pulse Rate 71 09/13/24 22:26 Respiratory Rate 18 09/13/24 22:26 Blood Pressure 115/76 09/13/24 22:26 Pulse Oximetry (%) 95 09/13/24 22:26 Oxygen Delivery Method Room Air 09/13/24 22:26 95% room air within normal limits Upper Respiratory Infection MDM Narrative MDM Narrative:: 49-year-old female past medical history of COPD and everyday smoker presents emergency department complaining of cough and right wrist pain. Patient reports right wrist pain is chronic and is pending surgical intervention for carpal tunnel. Patient denies any fever, chills, vomiting, extremity weakness, loss in sensation, or any other associated symptom. No adventitious lung sounds on auscultation. Chest x-ray was unremarkable for any pneumonic infiltrates. Right wrist full active range of motion neurovascularly intact with no loss of sensation. Patient appears nontoxic and is hemodynamically stable. Patient requesting prescription for [place] instructed will prescribe ibuprofen and follow-up with primary care provider Patient data External records reviewed:: [facility] previous records Clinical information provided by:: patient Social determinants that could affect healthcare access:: none Patient has the following chronic illnesses:: See chart How is presenting disease/condition affected by chronic disease/condition?: uneffected by Evaluation data The following diagnostics were reviewed and interpreted by me:: radiology exam(s) Lab and/or radiology exams considered but not ordered:: Ordered Interpretation Summary: Interpreted by me Medications / Prescriptions Medications or Prescriptions considered but not ordered:: Ordered Medication administrations:: Medication Administration History Discontinued Medications Hydrocodone Bitart/Acetaminophen (Hydrocodone/Apap 5/325 Tablet) 1 tab PO X1 ONE Stop: 09/13/24 22:41 Last Admin: 09/13/24 22:44 Dose: 1 tab Documented By: KF Given Consultations Consultation(s) initiated? (list below): No Diagnosis Upper Respiratory Differential Diagnosis: upper respiratory infection, otitis media, sinusitis, viral infection, bronchitis, influenza and pharyngitis Most likely diagnosis given after review of the tests above:: Viral infection Admission Indicated Admission indicated?: not indicated Admission Request Was there a request for admission?: No Disposition Plan Disposition Plan: Discharge Discharge Attestation Discharge Attestation: The patient and all family members were given an opportunity to ask questions and understood the discharge instructions. Discharge instructions specifically effects, indications for sooner follow up or return to the emergency department, and the expected course of current diagnosis. Patient condition: Stable Discharge Plan Plan Patient Disposition: HOME (Self Care) Disposition Comment: Stable Prescriptions/Referrals Prescriptions/Med Rec: New ibuprofen 600 mg tablet 600 mg PO Q8H PRN (Reason: pain) Qty: 20 0RF No Action aspirin 81 mg tablet,delayed release (DR/EC) 81 mg PO QDAY Qty: 30 0RF clopidogrel [Plavix] 75 mg tablet 75 mg PO QDAY Qty: 30 0RF atorvastatin 40 mg tablet 40 mg PO QPM Qty: 30 0RF metformin 1,000 mg tablet 1,000 mg PO BID Qty: 60 0RF hydrocodone-acetaminophen 5-325 mg tablet 1 tab PO BID MDD 10 PRN (Reason: pain) Qty: 6 0RF methylprednisolone [Medrol (Christiano)] 4 mg tablets,dose pack 4 mg PO QDAY Qty: 21 0RF metoprolol succinate 25 mg tablet extended release 24 hr 25 mg PO QDAY Qty: 30 0RF budesonide-formoterol 160-4.5 mcg/actuation HFA aerosol inhaler 1 puff inhalation BID Qty: 10.2 0RF tiotropium bromide 18 mcg capsule, w/inhalation device 1 cap inhalation QDAY Qty: 30 0RF Rx Instructions: puncture 1 cap using device; one dose = 2 inhalations azithromycin 250 mg tablet See Rx Instructions .ROUTE .COMPLEX Qty: 6 0RF Rx Instructions: For 250 mg dose pack: take 500 mg today (day 1), then 250 mg for 4 days (days 2-5) albuterol sulfate [Ventolin HFA] 90 mcg/actuation HFA aerosol inhaler 2 puff inhalation Q6H PRN (Reason: shortness of breath or wheezing) Qty: 8.5 0RF Problem List Clinical Impression: Viral infection Patient/Caregiver Discharge Instructions Discharge Activity: activity as tolerated Education Materials: ED Viral Syndrome (Adult) Additional Instructions: Take Tylenol or ibuprofen as needed for fever or pain. Follow-up with primary care provider in 2 to 3 days. Return to emergency department for any worsening symptoms or as needed. Print Language: Brazilian Stand Alone Forms: Maureen Award Info., Patient Portal Info Letter PA/MEGGAN Supervising Physician FARHEEN/MEGGAN Supervising Physician: Dr. Ralph
== END 2024-09-14 00:09 | disposition home or self-care (01) ==
LOC: SERX 23:54
PROVIDERS: Emergency Provider Emergency Medicine
DX: R05.9 Cough, unspecified (principal); B34.9 Viral infection, unspecified
CPT/HCPCS: 71046; 87400; 99283; A9270

== ENCOUNTER 2024-10-20 11:18 | Outpatient (RCR) | payer MEDICAID, SELFPAY ==
--- NOTE | 2024-10-20 11:40 | PT.OIERPT ---
PT OP Initial Eval Patient Information Outpatient Physical Therapy Treatment Date: 10/20/24 Visit Reasons: Carpal Tunnel syndrome Medical Diagnosis: Right Carpal Tunnel Syndrome Treatment Dx #1: Right Hand Pain Treatment Dx #2: Right Hand Weakness Smoking Status Smoking Status: Current every day smoker Cessation Counseling Provided: MARLENA was advised that quitting smoking is the single most important factor to protect the health of themselves and their family. Discussed the benefits of quitting smoking with patient. Encouraged patient to quit smoking and provided Cessation assistance materials and resources. Tobacco Use: Cigarette Years smoked: 20 Are you interested in quitting?: No Would you like additional Smoking Cessation Counseling?: No Initial Assessment Subjective: Pt is a 49 y/o female s/p right carpal tunnel release 09/20/24. Pt had CTS for ~ 1 year. Pt has limitation with gripping, lifting, chores, self care, work duties, and performing recreational activities. 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
== END 2024-10-25 23:59 | disposition home or self-care (01) ==
LOC: CPTX 11:18
PROVIDERS: PCP Nurse Practitioner Family; Referring Provider Nurse Practitioner Family; Visit Provider Nurse Practitioner Family
DX: M79.641 Pain in right hand (principal); R53.1 Weakness; Z71.6 Tobacco abuse counseling; F17.210 Nicotine dependence, cigarettes, uncomplicated; Z98.890 Other specified postprocedural states
CPT/HCPCS: 97162

== ENCOUNTER 2024-11-24 08:00 | Outpatient (RCR) | payer MEDICAID, SELFPAY ==
--- NOTE | 2024-10-27 08:35 | PT.ODAYNRPT ---
PT Outpatient Daily Note OP Daily Note Outpatient Physical Therapy Treatment Date: 10/27/24 Visit Reasons: CARPAL TUNNEL Subjective: Pt reports hand is doing ok, still has difficulty lifting small objects. Pt would like to return to work soon because she is struggling financially. Objective: Please see flow sheet for ther ex list. Assessment: Pt tolerated interventions with minimal pain, no complaints with scar mobilization MT. Plan: Continue with poC. Length of Time (minutes) of Treatment: 30 Minutes Procedure Charges Therapeutic Exercise 30 minutes: Yes
--- NOTE | 2024-10-29 08:54 | PT.ODAYNRPT ---
PT Outpatient Daily Note OP Daily Note Outpatient Physical Therapy Treatment Date: 10/29/24 Visit Reasons: CARPAL TUNNEL Subjective: Pt smashed her hand between the door yesterday. Pt was seeing stars after the incident. Pt continues to have hypersensitivity and pain at the surgical site. Objective: Palpation: thich scar adhesion proximal region of the surgical site Assessment: STM helped with scar adhesion and hypersensitivity. Patient is slowly progressing with hand resistance exercises Plan: Continue with PT Length of Time (minutes) of Treatment: 30 Minutes Procedure Charges Therapeutic Exercise 30 minutes: Yes
--- NOTE | 2024-11-03 08:38 | PT.ODAYNRPT ---
PT Outpatient Daily Note OP Daily Note Outpatient Physical Therapy Treatment Date: 11/03/24 Visit Reasons: CARPAL TUNNEL Subjective: Pt reports R hand hurts today. Objective: Please see flow sheet for ther ex list. Assessment: Pt instructed on light functional gripping and strengthening, completed with minimal complaints. Plan: Continue with POC. Length of Time (minutes) of Treatment: 30 Minutes Procedure Charges Therapeutic Exercise 30 minutes: Yes
--- NOTE | 2024-11-05 11:10 | PT.ODAYNRPT ---
PT Outpatient Daily Note OP Daily Note Outpatient Physical Therapy Treatment Date: 11/05/24 Visit Reasons: CARPAL TUNNEL Subjective: Pt's hand is better, however, still has sensitivity at the scar site. Objective: Please see flow chart for list of ther ex performed Assessment: progressing with hand resistance exercises and decrease scar adhesion noted at the surgical site Plan: Continue with PT Length of Time (minutes) of Treatment: 30 Minutes Procedure Charges Therapeutic Exercise 30 minutes: Yes
--- NOTE | 2024-11-17 09:08 | PT.ODAYNRPT ---
PT Outpatient Daily Note OP Daily Note Outpatient Physical Therapy Treatment Date: 11/17/24 Visit Reasons: CARPAL TUNNEL Subjective: Pt still has pain and weakness. Pt hasn't been using her hand as much. Objective: Please see flow chart for list of ther ex performed Assessment: patient encouraged to start using hand to help with desensitization and improved hand strength. Pt still has scar adhesion proximal to scar site Plan: Continue with PT Length of Time (minutes) of Treatment: 30 Minutes Procedure Charges Therapeutic Exercise 30 minutes: Yes
--- NOTE | 2024-11-19 10:04 | PT.ODAYNRPT ---
PT Outpatient Daily Note OP Daily Note Outpatient Physical Therapy Treatment Date: 11/19/24 Visit Reasons: CARPAL TUNNEL Subjective: Pt's hand feels a little stronger. No new concerns to report. Objective: Please see flow chart for list of ther ex performed Assessment: still exhibit scar adhesion proximal to the surgical site leading to sensitivity Plan: Continue with PT Length of Time (minutes) of Treatment: 30 Minutes Procedure Charges Therapeutic Exercise 30 minutes: Yes
--- NOTE | 2024-11-24 08:26 | PT.ODAYNRPT ---
PT Outpatient Daily Note OP Daily Note Outpatient Physical Therapy Treatment Date: 11/24/24 Visit Reasons: CARPAL TUNNEL Subjective: Pt's hand is less sensitive. Pt will follow up with surgeon next week. Objective: Please see flow chart for list of ther ex performed Assessment: slow progress with resistance hand exercises; increase gripper resistance to green today. Plan: Continue with PT Length of Time (minutes) of Treatment: 30 Minutes Procedure Charges Therapeutic Exercise 30 minutes: Yes
== END 2024-11-24 23:59 | disposition home or self-care (01) ==
LOC: CPTX 08:00
PROVIDERS: PCP Nurse Practitioner Family; Referring Provider Nurse Practitioner Family; Visit Provider Nurse Practitioner Family
DX: M79.641 Pain in right hand (principal); R53.1 Weakness; Z98.890 Other specified postprocedural states
CPT/HCPCS: 97110

== ENCOUNTER 2024-12-10 13:00 | Outpatient (RCR) | payer MEDICAID, SELFPAY ==
--- NOTE | 2024-12-01 14:05 | PT.ODAYNRPT ---
PT Outpatient Daily Note OP Daily Note Outpatient Physical Therapy Treatment Date: 12/01/24 Visit Reasons: carpal tunnel Subjective: Pt reports she returned to work yesterday and hand was and is really sore. Pt had pain with sweeping. Objective: Please see flow sheet for ther ex list. Assessment: Progressing interventions to work toward improving overall functional of R hand for pt to be able to perform work tasks with decrease difficulty. Plan: Continue with POC. Length of Time (minutes) of Treatment: 30 Minutes Procedure Charges Therapeutic Exercise 30 minutes: Yes
--- NOTE | 2024-12-03 10:22 | PT.ODAYNRPT ---
PT Outpatient Daily Note OP Daily Note Outpatient Physical Therapy Treatment Date: 12/03/24 Visit Reasons: carpal tunnel Subjective: Pt's hand is better. Pt has returned to work, however, scar site still sensitive Objective: Please see flow chart for list of ther ex performed Assessment: patient encourage to use hand more at work to help with strength and desensitize incision site. Pt gave verbal understanding. Progress patient exercise reps to 25x with good tolerance Plan: Continue with PT Length of Time (minutes) of Treatment: 30 Minutes Procedure Charges Therapeutic Exercise 30 minutes: Yes
--- NOTE | 2024-12-08 14:05 | PT.ODAYNRPT ---
PT Outpatient Daily Note OP Daily Note Outpatient Physical Therapy Treatment Date: 12/08/24 Visit Reasons: carpal tunnel Subjective: Pt reports hand pain is about the same but feels strength is improving. Objective: Please see flow sheet for ther ex list. Assessment: Progressing resistance and weight as tolerated for interventions to work on functional strengthening. Pt TTP along incision during scar mobilization. Plan: Continue with POC. Length of Time (minutes) of Treatment: 30 Minutes Procedure Charges Therapeutic Exercise 30 minutes: Yes
--- NOTE | 2024-12-10 16:10 | PT.ODAYNRPT ---
PT Outpatient Daily Note OP Daily Note Outpatient Physical Therapy Treatment Date: 12/10/24 Visit Reasons: carpal tunnel Subjective: Pt's hand continues to hurt. Pt feels that surgery did not help the pain at all. Pt will consult with surgeon next follow up appt. Objective: Please see flow chart for list of ther ex performed Assessment: minimal changes with pain post PT session. Pt came late and session was shorter than usual. Plan: Conitnue with PT Length of Time (minutes) of Treatment: 25 Minutes Procedure Charges Therapeutic Exercise 30 minutes: Yes
== END 2024-12-25 23:59 | disposition home or self-care (01) ==
LOC: CPTX 13:00
PROVIDERS: PCP Nurse Practitioner Family; Referring Provider Nurse Practitioner Family; Visit Provider Nurse Practitioner Family
DX: M79.641 Pain in right hand (principal); R53.1 Weakness; Z98.890 Other specified postprocedural states
CPT/HCPCS: 97110

== ENCOUNTER → 2024-12-24 | Outpatient (CLI) | payer MEDICAID, SELFPAY ==
--- NOTE | 2024-12-24 15:05 | XR_ITS ---
Examination: Wrist, right 3 views Technique: Wrist AP, oblique, lateral 3 views Date and time of exam: December 24, 2024 1515 hours INDICATIONS: Right wrist pain post surgery August 2024 FINDINGS: Mild to moderate osteopenia Mild narrowing radiocarpal joint Mild osteoarthritis first carpometacarpal joint IMPRESSION: Mild osteoarthritis
--- NOTE | 2024-12-24 15:05 | XR_ITS ---
Examination: Hand, right 3 views Technique: Hand AP, oblique, lateral 3 views Date and time of exam: December 24, 2024 1515 hours INDICATIONS: Right hand pain beginning August 2024 FINDINGS: Mild juxta-articular bone demineralization No fracture or dislocation. No cortical bone destruction No foreign body. No avascular necrosis IMPRESSION: Moderate juxta-articular bone demineralization
== END | disposition home or self-care (01) ==
DX: M19.031 Primary osteoarthritis, right wrist (principal); M89.8X4 Other specified disorders of bone, hand
CPT/HCPCS: 73110; 73130

== ENCOUNTER 2025-01-04 21:40 | Emergency (ER) | payer MEDICAID, SELFPAY ==
[2025-01-04 21:50] VITALS: BP 117/80; PULSE 77; RESP 18; TEMP 36.8; O2SAT 95; BMI 27.7
--- NOTE | 2025-01-04 22:14 | XR_ITS ---
Examination: Abdomen sonogram, Limited Date and time of exam: January 04, 2025 10:19 PM INDICATIONS: Right upper abdominal pain beginning one day ago Technique: Real-time yousif scale transabdominal sonographic images of the upper abdomen obtained. Findings: Normal gallbladder Common bile duct 0.7 cm no stones Pancreatic head 1.8 cm There is 17.4 cm fatty infiltration no focal liver lesions Normal hepatopedal portal venous flow Patent IVC IMPRESSION: Normal gallbladder Mildly enlarged common bile duct 0.7 cm, clinical correlation advised Consider MRCP follow-up as clinically warranted
--- NOTE | 2025-01-04 22:21 | EDNOTE_ITS ---
<Statement entered by Shanika Ceja MD - 01/05/25 18:33> As co-signing physician, I was present and available for consult prn. I concur with the plan and care as documented by the midlevel provider. ED Abdominal Pain RME/HPI General Chief Complaint: Abdominal Pain Stated complaint: RUQ pain, feel fatigue, cant eat Time seen by provider: 01/04/25 22:13 Arrival date/time: 01/04/25 21:40 49F with history of asthma, DM, psych/drug use and CAD/DE presents to ED with several days of intermittent RUQ pain and N/V. Limitations: no limitations Related Data Previous Rx's ?Medication ?Instructions ?Recorded aspirin 81 mg tablet,delayed 81 mg PO QDAY #30 tabs release atorvastatin 40 mg tablet 40 mg PO QPM #30 tabs clopidogrel 75 mg tablet (Plavix) 75 mg PO QDAY #30 ta bs 09/29/20 metformin 1,000 mg tablet 1,000 mg PO BID #60 tabs 12/15 hydrocodone 5 mg-acetaminophen 325 1 tab PO BID PRN pa in #6 tabs 09/16/23 mg tablet albuterol sulfate 90 mcg/actuation 2 puff inhalation Q 6H PRN 06/30/24 aerosol inhaler (Ventolin HFA) shortness of breath or wheezing #8.5 grams azithromycin 250 mg tablet See Rx Instructions PO .COM PLEX #6 06/30/24 tabs budesonide-formoterol HFA 160 1 puff inhalation BID #1 0.2 grams 07/03/24 mcg-4.5 mcg/actuation aerosol inhaler methylprednisolone 4 mg tablets in 4 mg PO QDAY #21 ta bs 07/03/24 a dose pack (Medrol (Christiano)) metoprolol succinate 25 mg 25 mg PO QDAY #30 tabs 02/17 tablet,extended release 24 hr tiotropium bromide 18 mcg capsule 1 cap inhalation QDA Y #30 puffs 07/03/24 with inhalation device ibuprofen 600 mg tablet 600 mg PO Q8H PRN pain #20 t abs 09/13/24 Allergies Allergy/AdvReac Type Severity Reaction Status Date / Time No Known Allergies Allergy Verified 09/13/24 21:58 Review of Systems Review of Systems Systems Reviewed: All systems reviewed, normal except as documented Constitutional Constitutional: Reports system reviewed and no additional complaints, except as documented, Denies fever(s) and Denies headache(s) ENT Ears, Nose, Mouth, and Throat: Denies disequilibrium and Denies headache(s) Cardiovascular Cardiovascular: Reports system reviewed and no additional complaints, except as documented, Denies chest pain and Denies dyspnea Respiratory Respiratory: Reports system reviewed and no additional complaints, except as documented, Denies cough and Denies dyspnea Gastrointestinal Gastrointestinal: Reports system reviewed and no additional complaints, except as documented, Reports as per HPI, Reports abdominal pain, Reports nausea and Reports vomiting Neurologic Neurologic: Reports system reviewed and no additional complaints, except as documented, Denies confusion, Denies disequilibrium and Denies headache(s) Psychiatric Psychiatric: Denies confusion Past Medical History Past Medical History CARDIAC: Negative Cardiac Disorders or Congestive Heart Failure RESPIRATORY: Positive Asthma; Negative Chronic Obstructive Pulmonary Disease (COPD) GENITOURINARY: Negative Renal Disease ENDOCRINE: Positive Diabetes Mellitus Type 1 and Diabetes Mellitus Type 2 HEMATOLOGIC: Negative Sickle Cell Disease PSYCHO/SOCIAL: Positive Psychiatric Problems, Schizophrenia, Bipolar Disorder and Behavior Problems Surgical History SURGICAL: Positive Hysterectomy Social History SMOKING STATUS: Former smoker ED Exam General Limitations: Present no limitations General appearance: Present alert and in no apparent distress Head Head exam: Present atraumatic Eye Eye exam: Present normal appearance, PERRL and EOMI ENT ENT exam: Present normal exam, normal oropharynx and mucous membranes moist Neck Neck exam: Present normal inspection, full ROM and trachea midline Chest Chest inspection: Present normal inspection and symmetric chest wall rise Respiratory Respiratory exam: Present normal lung sounds bilaterally Cardiovascular Cardiovascular exam: Present regular rate, normal rhythm and normal heart sounds Abdominal Exam Abdominal exam: Present soft and normal bowel sounds Abdominal tenderness: Present RUQ and mild Extremities Exam Extremities exam: Present normal inspection and full ROM Back Exam Back exam: Present normal inspection and full ROM Neurological Exam Neurological exam: Present alert, oriented X3 and CN II-XII intact Psychiatric Psychiatric exam: Present normal affect and normal mood Skin Skin exam: Present warm, dry, intact and normal color Course Quality Measures none Orders Category Date Time Status US gall bladder Stat Exams 01/04/25 22:14 Completed CBC Stat Lab 01/04/25 22:28 Completed CMP [Comprehensive Metabolic Panel] Stat Lab 01/04/25 22:28 Completed Lipase Stat Lab 01/04/25 22:28 Completed Urinalysis, C/S if Indicated Stat Lab 01/04/25 22:51 Completed Vital Signs Vital signs: Vital Signs Temperature 98.2 F 01/04/25 21:50 Pulse Rate 77 01/04/25 21:50 Respiratory Rate 18 01/04/25 21:50 Blood Pressure 117/80 01/04/25 21:50 Pulse Oximetry (%) 95 01/04/25 21:50 Oxygen Delivery Method Room Air 01/04/25 21:50 O2 at 95% on RA and WNLs Abdominal Pain MDM MDM Narrative MDM Narrative:: 49F with history of asthma, DM, psych/drug use and CAD/DE presents to ED with several days of intermittent RUQ pain and N/V. Physical exam reveals minimal RUQ tenderness. Patient is afebrile, calm, and alert. US possibly dilated CBD, but normal CMP and lipase. No leukocytosis. 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 Patient data External records reviewed:: [facility] previous records Clinical information provided by:: patient Social determinants that could affect healthcare access:: none Patient has the following chronic illnesses:: none How is presenting disease/condition affected by chronic disease/condition?: no chronic disease Evaluation data The following diagnostics were reviewed and interpreted by me:: lab results and radiology exam(s) Lab and/or radiology exams considered but not ordered:: ordered Interpretation Summary: above Medications / Prescriptions Medications or Prescriptions considered but not ordered:: not ordered Medication administrations:: n/a Consultations Consultation(s) initiated? (list below): No Diagnosis Differential diagnosis abdominal pain: abdominal pain, acute appendicitis, calculus of kidney, constipation, diverticulitis, endometriosis, gastroenteritis, pancreatitis, small bowel obstruction and other (biliary disease) Most likely diagnosis given after review of the tests above:: ab pain Admission Indicated Admission indicated?: not indicated Admission Request Was there a request for admission?: No Disposition Plan Disposition Plan: Discharge Discharge Attestation Discharge Attestation: The patient and all family members were given an opportunity to ask questions and understood the discharge instructions. Discharge instructions specifically effects, indications for sooner follow up or return to the emergency department, and the expected course of current diagnosis. Patient condition: Stable Discharge Plan Plan Patient Disposition: HOME (Self Care) Discharge Disposition comment: Stable Prescriptions/Referrals Prescriptions/Med Rec: No Action aspirin 81 mg tablet,delayed release (DR/EC) 81 mg PO QDAY Qty: 30 0RF clopidogrel [Plavix] 75 mg tablet 75 mg PO QDAY Qty: 30 0RF atorvastatin 40 mg tablet 40 mg PO QPM Qty: 30 0RF metformin 1,000 mg tablet 1,000 mg PO BID Qty: 60 0RF hydrocodone-acetaminophen 5-325 mg tablet 1 tab PO BID MDD 10 PRN (Reason: pain) Qty: 6 0RF methylprednisolone [Medrol (Christiano)] 4 mg tablets,dose pack 4 mg PO QDAY Qty: 21 0RF metoprolol succinate 25 mg tablet extended release 24 hr 25 mg PO QDAY Qty: 30 0RF budesonide-formoterol 160-4.5 mcg/actuation HFA aerosol inhaler 1 puff inhalation BID Qty: 10.2 0RF tiotropium bromide 18 mcg capsule, w/inhalation device 1 cap inhalation QDAY Qty: 30 0RF Rx Instructions: puncture 1 cap using device; one dose = 2 inhalations azithromycin 250 mg tablet See Rx Instructions .ROUTE .COMPLEX Qty: 6 0RF Rx Instructions: For 250 mg dose pack: take 500 mg today (day 1), then 250 mg for 4 days (days 2-5) albuterol sulfate [Ventolin HFA] 90 mcg/actuation HFA aerosol inhaler 2 puff inhalation Q6H PRN (Reason: shortness of breath or wheezing) Qty: 8.5 0RF ibuprofen 600 mg tablet 600 mg PO Q8H PRN (Reason: pain) Qty: 20 0RF Referrals: Issac Reyes MD [Primary Care Provider] - In 1 week Problem List Clinical Impression: Abdominal pain Patient/Caregiver Discharge Instructions Education Materials: ED Abdominal Pain Unkn Cause Fem Additional Instructions: Please follow-up with PCP within 24-48 hours and return immediately if symptoms worsen. Print Language: Niuean Stand Alone Forms: Patient Portal Info Letter PA/ATHLETIC DIRECTOR Supervising Physician FARHEEN/MEGGAN Supervising Physician: Dr. Ceja
[2025-01-04 22:39] LABS: Basophils # (Auto) 0.1 Thou/mm3 (0.0-0.2); Basophils % (Auto) 1 % (0-2.5); Eosinophils # (Auto) 0.2 Thou/mm3 (0.0-0.5); Eosinophils % (Auto) 2 % (0-10); Hematocrit 38.2 % (36.0-46.0); Hemoglobin 13.6 g/dL (12.0-16.0); Immature Granulocytes % (Auto) 1 % (0-0); Lymphocytes # (Auto) 5.3 Thou/mm3 (1.0-4.8); Lymphocytes % (Auto) 49 % (10-50); Mean Corpuscular HGB Conc 35.6 g/dl (31.0-37.0); Mean Corpuscular Hemoglobin 29.5 pg (25.0-35.0); Mean Corpuscular Volume 83 fL (80-100); Monocytes # (Auto) 0.7 Thou/mm3 (0.0-0.8); Monocytes % (Auto) 6 % (0-12); Neutrophils # (Auto) 4.5 Thou/mm3 (1.8-7.7); Neutrophils % (Auto) 41 % (37-80); Nucleated Red Blood Cell % 0 /100 WBC (0); Platelet Count 376 Thou/mm3 (140-440); RDW Standard Deviation 38.7 fL (36.4-46.3); Red Blood Count 4.61 Miln/mm3 (4.00-5.20); White Blood Count 10.9 Thou/mm3 (3.6-11.0)
[2025-01-04 23:00] LABS: Collection Type, Urine Clean Catch; WBC,Urine 0 /hpf (0-5)
[2025-01-04 23:07] LABS: Amorphous Crystals,Urine Present (Absent); Bacteria,Urine 1+; Bilirubin,Urine 1+ (Negative); Blood,Urine Negative (Negative); Clarity,Urine Turbid (Clear/Hazy); Color,Urine Yellow (Lt Yel-Yel); Culture Indicated,Urine Contaminated; Glucose, Urine Negative (Negative); Ketones,Urine Negative (Negative); Leukocyte Esterase,Urine Negative (Negative); Nitrite,Urine Negative (Negative); Protein,Urine 1+ (Neg - Trace); RBC,Urine 62 /hpf (0-3); Specific Gravity,Urine > 1.035 (1.001-1.035); Squamous Epithelial Cell,Urine 28 /hpf (0-5)
[2025-01-04 23:15] LABS: Anion Gap 8 (7-16); BUN/Creatinine Ratio 15 Ratio (12-20); Blood Urea Nitrogen 17 mg/dL (9-23); Carbon Dioxide 26.9 mMol/L (20.0-31.0); Chloride 103 mMol/L (98-107); Creatinine (Component) 1.1 mg/dL (0.6-1.3); Estimated Creatinine Clearance 50.7 mL/min (>60); Potassium 3.6 mMol/L (3.4-5.1); Sodium 138 mMol/L (136-145)
[2025-01-04 23:16] LABS: Alanine Aminotransferase 9 U/L (10-49); Albumin, Serum 4.5 gm/dL (3.5-5.0); Albumin/Globulin Ratio 1.9 (1.2-2.2); Alkaline Phosphatase 59 U/L (46-116); Bilirubin,Total 0.3 mg/dL (0.3-1.2); Calcium 9.4 mg/dL (8.3-10.6); Calcium (Corrected) 9.4 mg/dL (8.5-10.1); Globulin 2.4 gm/dL (2.3-3.5); Glucose 150 mg/dL (74-106); Lipase 35 U/L (12-53); Osmolality,Calculated 280 (275-295); Total Protein 6.9 gm/dL (5.7-8.2); eGFR > 60 See Note
[2025-01-05 04:05] LABS: Path Review Blood Smear Sent to Pathologist
== END 2025-01-04 23:50 | disposition home or self-care (01) ==
PROVIDERS: Physician Assistant; Emergency Provider Emergency Medicine; PCP Family Medicine
DX: R10.11 Right upper quadrant pain (principal); R53.83 Other fatigue
CPT/HCPCS: 36415; 76705; 80053; 81001; 83690; 85025; 99284

== ENCOUNTER 2025-01-09 12:12 | Emergency (ER) | payer MEDICAID, SELFPAY ==
[2025-01-09 12:13] VITALS: BMI 27.7
[2025-01-09 12:27] VITALS: BP 138/85; PULSE 68; RESP 18; TEMP 36.6; O2SAT 97
--- NOTE | 2025-01-09 12:29 | XR_ITS ---
Examination: CT abdomen with intravenous contrast CT pelvis with intravenous contrast 2-D coronal reconstructions 2-D sagittal reconstructions Date and time of exam:January 09, 2025, 1408 hrs. Indications: Onset right-sided abdominal pain and nausea beginning 2 weeks ago. CTDI: vol (mGy) 8.04 DLP: (mGycm) 376 Technique: Multiple axial sections of the abdomen and pelvis have been obtained. 64 slice high-resolution scanner used. 3 mm axial sections have been obtained, post intravenous injection 60 cc [id number] 2-D sagittal, coronal reconstructions obtained. Low dose protocols were performed. One or more of the following dose reduction techniques were used; automated exposure control, adjustment of the mA and/or KV according to patient size, use of iterative reconstruction technique. Findings: Diffuse fatty infiltration throughout the liver Contracted gallbladder. No splenic mass No peripancreatic edema Common bile duct 7 mm no definite common bile duct stones No renal or ureteral calculi, no hydronephrosis Aorta normal size. Normal appendix. The entire colon shows wall thickening and mild hyperemia including rectum No pelvic mass No bladder mass or bladder calculi Moderate disc narrowing L5-S1 Impression: Mildly enlarged common bile duct 7 mm, no common bile duct stones Diffuse nonspecific colitis pattern, consider Crohn's disease, ulcerative colitis
--- NOTE | 2025-01-09 12:31 | PD.EDABDPN ---
ED Abdominal Pain RME/HPI General Chief Complaint: Abdominal Pain Stated complaint: RUQ ABD PAIN, R) HAND PAIN, NAUSEA X 2 WKS Time seen by provider: 01/09/25 12:20 Arrival date/time: 01/09/25 12:12 Limitations: no limitations RME / HPI RME / HPI narrative: Here today with a 2-week history of ongoing right side abdominal pain. She endorses non-bloody emesis and loose stool. Denies any fevers or chills. She has no urinary changes. She was here recently and worked up for this, she had a negative gallbladder ultrasound. Related Data Previous Rx's ?Medication ?Instructions ?Recorded aspirin 81 mg tablet,delayed 81 mg PO QDAY #30 tabs 09/29/20 release atorvastatin 40 mg tablet 40 mg PO QPM #30 tabs 09/29/20 clopidogrel 75 mg tablet (Plavix) 75 mg PO QDAY #30 tabs 09/29/20 metformin 1,000 mg tablet 1,000 mg PO BID #60 tabs 09/29/20 hydrocodone 5 mg-acetaminophen 325 1 tab PO BID PRN pain #6 tabs 09/16/23 mg tablet albuterol sulfate 90 mcg/actuation 2 puff inhalation Q6H PRN 06/30/24 aerosol inhaler (Ventolin HFA) shortness of breath or wheezing #8.5 grams azithromycin 250 mg tablet See Rx Instructions PO .COMPLEX #6 06/30/24 tabs budesonide-formoterol HFA 160 1 puff inhalation BID #10.2 grams 07/03/24 mcg-4.5 mcg/actuation aerosol inhaler methylprednisolone 4 mg tablets in 4 mg PO QDAY #21 tabs 07/03/24 a dose pack (Medrol (Christiano)) metoprolol succinate 25 mg 25 mg PO QDAY #30 tabs 07/03/24 tablet,extended release 24 hr tiotropium bromide 18 mcg capsule 1 cap inhalation QDAY #30 puffs 07/03/24 with inhalation device ibuprofen 600 mg tablet 600 mg PO Q8H PRN pain #20 tabs 09/13/24 amoxicillin 875 mg-potassium 1 tab PO BID #14 tabs 01/09/25 clavulanate 125 mg tablet dicyclomine 20 mg tablet 20 mg PO TID #20 tabs 01/09/25 Allergies Allergy/AdvReac Type Severity Reaction Status Date / Time No Known Allergies Allergy Verified 01/09/25 12:15 Review of Systems Review of Systems Systems Reviewed: All systems reviewed, normal except as documented ED Exam General Limitations: Present no limitations General appearance: Present alert and in no apparent distress Head Head exam: Present atraumatic Eye Eye exam: Present normal appearance, PERRL and EOMI ENT ENT exam: Present normal exam, normal oropharynx and mucous membranes moist Neck Neck exam: Present normal inspection, full ROM and trachea midline Chest Chest inspection: Present normal inspection and symmetric chest wall rise Respiratory Respiratory exam: Present normal lung sounds bilaterally Cardiovascular Cardiovascular exam: Present regular rate, normal rhythm and normal heart sounds Abdominal Exam Abdominal exam: Present soft and normal bowel sounds Extremities Exam Extremities exam: Present normal inspection and full ROM Back Exam Back exam: Present normal inspection and full ROM Neurological Exam Neurological exam: Present alert, oriented X3 and CN II-XII intact Psychiatric Psychiatric exam: Present normal affect and normal mood Skin Skin exam: Present warm, dry, intact and normal color Course Quality Measures none Orders Category Date Time Status CT Screening NOW Care 01/09/25 12:[address] Screening X1 Care 01/09/25 12:[address] abdomen pelvis w con Stat Exams 01/09/25 12:29 Completed CBC Stat Lab 01/09/25 12:45 Completed CMP [Comprehensive Metabolic Panel] Stat Lab 01/09/25 12:45 Completed Drug Screen,Urine Stat Lab 01/09/25 13:25 Completed Lipase Stat Lab 01/09/25 12:45 Completed UA, C/S IF [Urinalysis, C/S if Indicated] Stat Lab 01/09/25 13:25 Completed Acetaminophen Tab [Tylenol ES Tab] Med 01/09/25 14:22 Discontinued 1,000 mg PO X1 ONE Sodium Chloride 0.9% 1000 ml [Ns] 1,000 ml Med 01/09/25 14:50 Discontinued IV 999 mls/hr Vital Signs Vital signs: Vital Signs Temperature 97.9 F 01/09/25 12:27 Pulse Rate 68 01/09/25 12:27 Respiratory Rate 18 01/09/25 12:27 Blood Pressure 138/85 H 01/09/25 12:27 Pulse Oximetry (%) 97 01/09/25 12:27 Oxygen Delivery Method Room Air 01/09/25 12:27 Abdominal Pain MDM MDM Narrative MDM Narrative:: 49-year-old female who was seen recently for right abdominal pain. She has had ongoing symptoms. She denies any vomiting, diarrhea, or urinary complaints. She had a right upper quadrant ultrasound here which was negative for any acute cholecystitis. Her labs here including CBC, CMP, and lipase are essentially unremarkable. CT is questionable for possible thickening of the colon. This discussed with the patient detail. She will be placed on Augmentin for this. She be discharged with a prescription of Bentyl to use. She agrees to follow-up with her primary clinic within next 1 to 2 weeks. Return precautions were discussed. She will return as needed for worsening or emergent changes. Patient data External records reviewed:: [facility] previous records Clinical information provided by:: patient Social determinants that could affect healthcare access:: none Patient has the following chronic illnesses:: Bipolar, schizophrenia, diabetes How is presenting disease/condition affected by chronic disease/condition?: uneffected by Evaluation data The following diagnostics were reviewed and interpreted by me:: lab results (No significant leukocytosis, liver enzymes and lipase are within normal limits.) and radiology exam(s) (No evidence of bowel obstruction or abscess. There is questionable colitis pattern) Lab and/or radiology exams considered but not ordered:: Not applicable Interpretation Summary: Possible colitis Medications / Prescriptions Medications or Prescriptions considered but not ordered:: n/a Medication administrations:: Medication Administration History Discontinued Medications Acetaminophen (Acetaminophen 500 Mg Tablet) 1,000 mg PO X1 ONE Stop: 01/09/25 14:23 Last Admin: 01/09/25 14:28 Dose: 1,000 mg Documented By: [facility] Sodium Chloride (Ns) 1,000 mls @ 999 mls/hr IV .Q1H1M ONE Stop: 01/09/25 15:50 Last Admin: 01/09/25 14:57 Dose: 999 mls/hr Documented By: See above Consultations Consultation(s) initiated? (list below): No Diagnosis Differential diagnosis abdominal pain: abdominal pain, acute appendicitis and calculus of kidney Most likely diagnosis given after review of the tests above:: Possible colitis Admission Indicated Admission indicated?: not indicated Admission Request Was there a request for admission?: No Disposition Plan Disposition Plan: Discharge Discharge Attestation Discharge Attestation: The patient and all family members were given an opportunity to ask questions and understood the discharge instructions. Discharge instructions specifically effects, indications for sooner follow up or return to the emergency department, and the expected course of current diagnosis. Patient condition: Stable Discharge Plan Plan Patient Disposition: HOME (Self Care) Patient condition on transfer: Stable Prescriptions/Referrals Prescriptions/Med Rec: New amoxicillin-pot clavulanate 875-125 mg tablet 1 tab PO BID Qty: 14 0RF dicyclomine 20 mg tablet 20 mg PO TID Qty: 20 0RF No Action aspirin 81 mg tablet,delayed release (DR/EC) 81 mg PO QDAY Qty: 30 0RF clopidogrel [Plavix] 75 mg tablet 75 mg PO QDAY Qty: 30 0RF atorvastatin 40 mg tablet 40 mg PO QPM Qty: 30 0RF metformin 1,000 mg tablet 1,000 mg PO BID Qty: 60 0RF hydrocodone-acetaminophen 5-325 mg tablet 1 tab PO BID MDD 10 PRN (Reason: pain) Qty: 6 0RF methylprednisolone [Medrol (Christiano)] 4 mg tablets,dose pack 4 mg PO QDAY Qty: 21 0RF metoprolol succinate 25 mg tablet extended release 24 hr 25 mg PO QDAY Qty: 30 0RF budesonide-formoterol 160-4.5 mcg/actuation HFA aerosol inhaler 1 puff inhalation BID Qty: 10.2 0RF tiotropium bromide 18 mcg capsule, w/inhalation device 1 cap inhalation QDAY Qty: 30 0RF Rx Instructions: puncture 1 cap using device; one dose = 2 inhalations azithromycin 250 mg tablet See Rx Instructions .ROUTE .COMPLEX Qty: 6 0RF Rx Instructions: For 250 mg dose pack: take 500 mg today (day 1), then 250 mg for 4 days (days 2-5) albuterol sulfate [Ventolin HFA] 90 mcg/actuation HFA aerosol inhaler 2 puff inhalation Q6H PRN (Reason: shortness of breath or wheezing) Qty: 8.5 0RF ibuprofen 600 mg tablet 600 mg PO Q8H PRN (Reason: pain) Qty: 20 0RF Referrals: Issac Reyes MD [Primary Care Provider] - In 1 week Problem List Clinical Impression: Acute colitis Patient/Caregiver Discharge Instructions Education Materials: Understanding Colitis Additional Instructions: Use provided medications as prescribed. Follow-up with your clinic within the next 1 to 2 weeks for close recheck. Please return to the emergency room anytime for any worsening or emergent changes. Print Language: American Stand Alone Forms: Maureen Award Info., Patient Portal Info Letter
[2025-01-09 13:13] LABS: Basophils # (Auto) 0.1 Thou/mm3 (0.0-0.2); Basophils % (Auto) 1 % (0-2.5); Eosinophils # (Auto) 0.2 Thou/mm3 (0.0-0.5); Eosinophils % (Auto) 2 % (0-10); Hematocrit 38.2 % (36.0-46.0); Immature Granulocytes % (Auto) 1 % (0-0); Immature Granulocytes Auto 0.06 Thou/mm3 (0.00-0.00); Lymphocytes # (Auto) 3.3 Thou/mm3 (1.0-4.8); Lymphocytes % (Auto) 34 % (10-50); Mean Corpuscular Hemoglobin 29.6 pg (25.0-35.0); Mean Corpuscular Volume 87 fL (80-100); Monocytes # (Auto) 0.6 Thou/mm3 (0.0-0.8); Monocytes % (Auto) 6 % (0-12); Neutrophils # (Auto) 5.3 Thou/mm3 (1.8-7.7); Neutrophils % (Auto) 56 % (37-80); Nucleated Red Blood Cell % 0 /100 WBC (0); Platelet Count 424 Thou/mm3 (140-440); RDW Standard Deviation 39.9 fL (36.4-46.3); Red Blood Count 4.39 Miln/mm3 (4.00-5.20); White Blood Count 9.5 Thou/mm3 (3.6-11.0)
[2025-01-09 13:23] VITALS: BP 140/86; PULSE 66; RESP 16; O2SAT 98
[2025-01-09 13:39] LABS: Alanine Aminotransferase 7 U/L (10-49); Albumin, Serum 4.1 gm/dL (3.5-5.0); Albumin/Globulin Ratio 1.9 (1.2-2.2); Alkaline Phosphatase 57 U/L (46-116); Anion Gap 10 (7-16); Aspartate Amino Transferase 14 U/L (0-34); BUN/Creatinine Ratio 10 Ratio (12-20); Bilirubin,Total 0.2 mg/dL (0.3-1.2); Blood Urea Nitrogen 9 mg/dL (9-23); Calcium 8.9 mg/dL (8.3-10.6); Calcium (Corrected) 8.9 mg/dL (8.5-10.1); Carbon Dioxide 22.6 mMol/L (20.0-31.0); Chloride 106 mMol/L (98-107); Creatinine (Component) 0.9 mg/dL (0.6-1.3); Estimated Creatinine Clearance 61.9 mL/min (>60); Globulin 2.2 gm/dL (2.3-3.5); Glucose 216 mg/dL (74-106); Lipase 66 U/L (12-53); Osmolality,Calculated 283 (275-295); Potassium 3.6 mMol/L (3.4-5.1); Sodium 139 mMol/L (136-145); Total Protein 6.3 gm/dL (5.7-8.2); eGFR > 60 See Note
--- NOTE | 2025-01-09 13:49 | PC.NURSE ---
PT REFUSED DRESSING FOR PULLED IV
--- NOTE | 2025-01-09 13:50 | PC.NURSE ---
PREVIOUS NOTE WAS FOR WRONG PT.
[2025-01-09 13:54] LABS: Collection Type, Urine Clean Catch
[2025-01-09 14:00] VITALS: BP 145/94; PULSE 71; RESP 16; O2SAT 96
[2025-01-09 14:08] LABS: Amphetamine/Methamp Scrn,U Negative (Negative); Bacteria,Urine 4+; Barbiturate Screen,Urine Negative (Negative); Benzodiazepines Screen,Urine Negative (Negative); Benzoylecgonine Screen, Ur Negative (Negative); Bilirubin,Urine Negative (Negative); Blood,Urine Negative (Negative); Clarity,Urine Turbid (Clear/Hazy); Color,Urine Yellow (Lt Yel-Yel); Culture Indicated,Urine Contaminated; Fentanyl Screen,Urine Negative (Negative); Glucose, Urine Trace (Negative); Ketones,Urine Negative (Negative); Leukocyte Esterase,Urine Negative (Negative); Nitrite,Urine Negative (Negative); Opiate Screen,Urine Negative (Negative); PH,Urine 6.5 (5.0-7.0); Protein,Urine Trace (Neg - Trace); RBC,Urine 4 /hpf (0-3); Specific Gravity,Urine 1.026 (1.001-1.035); Squamous Epithelial Cell,Urine 21 /hpf (0-5); THC Screen,Urine Negative (Negative); Urobilinogen,Urine Negative mg/dL (0.0-1.0); WBC,Urine 2 /hpf (0-5)
[2025-01-09] MEDS: ACETAMINOPHEN 500 MG TABLET 1000 MG PO (14:28)
[2025-01-09] MEDS: SODIUM CHLORIDE 0.9% 1000 ML 1,000 ML 999 ML IV (14:57)
[2025-01-09 16:26] VITALS: BP 152/77; PULSE 63; RESP 17; TEMP 36.7; O2SAT 98
[2025-01-09 16:42] VITALS: RESP 16; O2SAT 97
== END 2025-01-09 16:37 | disposition home or self-care (01) ==
PROVIDERS: Physician Assistant Medical; Emergency Provider Family Medicine; PCP Family Medicine
DX: K52.9 Noninfective gastroenteritis and colitis, unspecified (principal)
CPT/HCPCS: 36415; 74177; 80053; 80307; 81001; 83690; 85025; 96360; 96361; 99285; A4649; J7030; Q9967; A9270

== ENCOUNTER 2025-01-21 13:04 | Outpatient (RCR) | payer MEDICAID, SELFPAY ==
--- NOTE | 2025-01-21 13:34 | PT.ODAYNRPT ---
PT Outpatient Daily Note OP Daily Note Outpatient Physical Therapy Treatment Date: 01/21/25 Visit Reasons: right carpal tunnel surgery Subjective: Pt reports R hand feels stronger but is frustrated because she continues to have pain. Objective: Please see flow sheet for ther ex list. Assessment: Pt demonstrates poor activity tolerance today due to pain response. Plan: Continue with poC. Length of Time (minutes) of Treatment: 30 Minutes Procedure Charges Therapeutic Exercise 30 minutes: Yes
== END 2025-01-24 23:59 | disposition home or self-care (01) ==
LOC: CPTX 13:04
PROVIDERS: PCP Nurse Practitioner Family; Referring Provider Nurse Practitioner Family; Visit Provider Nurse Practitioner Family
DX: M79.641 Pain in right hand (principal); R53.1 Weakness; Z98.890 Other specified postprocedural states
CPT/HCPCS: 97110

== ENCOUNTER 2025-02-11 13:00 | Outpatient (RCR) | payer MEDICAID, SELFPAY ==
--- NOTE | 2025-02-01 14:17 | PT.ODAYNRPT ---
PT Outpatient Daily Note OP Daily Note Outpatient Physical Therapy Treatment Date: 02/01/25 Visit Reasons: right hand surgery Subjective: Pt reports slow progress with hand, continues to have pain. Objective: Please see flow sheet for ther ex list. Assessment: Focus on restoring functional strength within pt pain tolerance. Plan: Continue with poC. Length of Time (minutes) of Treatment: 30 Minutes Procedure Charges Therapeutic Exercise 30 minutes: Yes
--- NOTE | 2025-02-11 15:26 | PT.ODAYNRPT ---
PT Outpatient Daily Note OP Daily Note Outpatient Physical Therapy Treatment Date: 02/11/25 Visit Reasons: right hand surgery Subjective: Pt reports she continues to use her hand as best she can but pain is still present. Objective: Please see flow sheet for ther ex list. Assessment: Pt completes strengthening intervention repetitions but reports pain, when asked location of pain pt responds he whole hand and forearm. Plan: Continue with pOC. Length of Time (minutes) of Treatment: 30 Minutes Procedure Charges Therapeutic Exercise 30 minutes: Yes
== END 2025-02-24 23:59 | disposition home or self-care (01) ==
LOC: CPTX 13:00
PROVIDERS: PCP Nurse Practitioner Family; Referring Provider Nurse Practitioner Family; Visit Provider Nurse Practitioner Family
DX: M79.641 Pain in right hand (principal); Z98.890 Other specified postprocedural states
CPT/HCPCS: 97110

== ENCOUNTER 2025-02-25 12:56 | Outpatient (RCR) | payer MEDICAID, SELFPAY ==
--- NOTE | 2025-02-25 13:41 | PTNOTE_ITS ---
PT OP Progress/Discharge Note Date of Service: 02/25/25 Progress Note/DC Note Progress Note/Discharge Note: DC Note Patient Information Visit Reasons: right hand surgery Medical Diagnosis: Right Carpal Tunnel Syndrome Treatment Dx #1: Right Hand Pain Service Discharge Date: 02/25/25 Status Subjective: Pt continues to have pain and intermittent numbness in her hand. Pt mentioned her strength and ROM has come back. Pt has been able to return back to work and started ADLs with less limitation. Pt's main concern now is the pain and numbness in the hand. Pt will follow up with provider soon. 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 Pt will no longer benefit from physical therapy due to plateau towards goals. Pt was instructed on HEP last session and educated to continue exercises to maintain overall mobility. Pt performed all exercises safely, thank you for your referrals. Plan: D/C home with HEP and follow up with MD PARRA Procedure Charges Therapeutic Exercise 30 minutes: Yes
== END 2025-03-27 23:59 | disposition home or self-care (01) ==
LOC: CPTX 12:56
PROVIDERS: PCP Nurse Practitioner Family; Referring Provider Nurse Practitioner Family; Visit Provider Nurse Practitioner Family
DX: M79.641 Pain in right hand (principal); R20.0 Anesthesia of skin; Z98.890 Other specified postprocedural states
CPT/HCPCS: 97110

== ENCOUNTER 2025-03-10 10:37 | Emergency (ER) | payer MEDICAID, SELFPAY ==
--- NOTE | 2025-03-10 10:47 | XR_ITS ---
Examination: PA lateral chest 2 views TECHNIQUE: Upright PA lateral chest 2 views Date and time: March 10, 2025 1103 hours INDICATIONS: Chest pain dizziness today. FINDINGS: Normal heart size. Lungs are clear. The osseous structures are intact IMPRESSION: No active disease
--- NOTE | 2025-03-10 10:47 | EKG_ITS ---
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
--- NOTE | 2025-03-10 10:48 | XR_ITS ---
Examination: CT brain head without contrast. 2-D sagittal coronal reconstructions Date and time of exam:March 10, 2025 1120 hours INDICATIONS: Patient fell today followed by head pain blurred vision CTDI: vol (mGy):47.5 DLP: (mGycm):923 Technique: Multiple CT axial sections of the brain have been obtained, 5 mm slice thickness. Contrast has not been administered. 2-D sagittal, coronal reconstructions have been obtained Low dose protocols were performed. One or more of the following dose reduction techniques were used; automated exposure control, adjustment of the mA and/or KV according to patient size, use of iterative reconstruction technique. Findings: No significant ventricular enlargement. Intra-axial or extra-axial hemorrhage density is not seen. No mass effect or midline shift Basal cisterns are not remarkable. Fourth ventricle is midline. Cranial vault intact. Impression: Negative for acute hemorrhage, mass effect or midline shift
[2025-03-10 10:51] VITALS: BP 100/62; PULSE 83; RESP 18; TEMP 37.1; O2SAT 96; BMI 25.9
--- NOTE | 2025-03-10 10:52 | PD.EDRME ---
Rapid Medical Screening Exam RME Arrival date/time: 03/10/25 10:37 49-year-old female with history of drug abuse, psychiatric disorder, diabetes presents with concerns for dizziness and fatigue Chief Complaint: Dizziness
[2025-03-10 12:30] LABS: Base Excess, Venous -1 (-3-3); O2 Saturation, Venous 83 % (96-97); PCO2, Venous 41 mmHg (36-56); PO2, Venous 45 mmHg (15-58); pH, Venous 7.38 (7.33-7.66)
[2025-03-10 12:33] LABS: Basophils # (Auto) 0.1 Thou/mm3 (0.0-0.2); Basophils % (Auto) 1 % (0-2.5); Eosinophils # (Auto) 0.2 Thou/mm3 (0.0-0.5); Eosinophils % (Auto) 2 % (0-10); Hematocrit 38.1 % (36.0-46.0); Hemoglobin 12.6 g/dL (12.0-16.0); Immature Granulocytes Auto 0.14 Thou/mm3 (0.00-0.00); Lymphocytes # (Auto) 3.5 Thou/mm3 (1.0-4.8); Lymphocytes % (Auto) 37 % (10-50); Mean Corpuscular HGB Conc 33.1 g/dl (31.0-37.0); Mean Corpuscular Hemoglobin 29.2 pg (25.0-35.0); Mean Corpuscular Volume 88 fL (80-100); Monocytes # (Auto) 0.8 Thou/mm3 (0.0-0.8); Monocytes % (Auto) 8 % (0-12); Neutrophils # (Auto) 4.8 Thou/mm3 (1.8-7.7); Neutrophils % (Auto) 50 % (37-80); Nucleated Red Blood Cell # 0.00 Thou/mm3 (0.00-0.00); Nucleated Red Blood Cell % 0 /100 WBC (0); Platelet Count 348 Thou/mm3 (140-440); RDW Standard Deviation 42.9 fL (36.4-46.3); Red Blood Count 4.32 Miln/mm3 (4.00-5.20); White Blood Count 9.5 Thou/mm3 (3.6-11.0)
[2025-03-10 12:34] LABS: Beta Hydroxybutyrate 0.1 mmol/L (<0.6)
[2025-03-10 12:45] LABS: INR 0.9 (0.9-1.3); Partial Thromboplastin Time 24.1 Seconds (22.0-36.0); Prothrombin Time 10.4 Seconds (9.0-12.2)
[2025-03-10 12:49] LABS: B-Type Natriuretic Peptide 28 pg/mL (0-100)
[2025-03-10 13:02] LABS: Collection Type, Urine Clean Catch
[2025-03-10 13:04] LABS: Alanine Aminotransferase 17 U/L (10-49); Albumin, Serum 4.4 gm/dL (3.5-5.0); Albumin/Globulin Ratio 1.9 (1.2-2.2); Alkaline Phosphatase 70 U/L (46-116); Anion Gap 9 (7-16); Aspartate Amino Transferase 15 U/L (0-34); BUN/Creatinine Ratio 6 Ratio (12-20); Bilirubin,Total 0.2 mg/dL (0.3-1.2); Blood Urea Nitrogen 6 mg/dL (9-23); Calcium 9.5 mg/dL (8.3-10.6); Calcium (Corrected) 9.5 mg/dL (8.5-10.1); Carbon Dioxide 22.8 mMol/L (20.0-31.0); Chloride 106 mMol/L (98-107); Creatinine (Component) 1.0 mg/dL (0.6-1.3); Estimated Creatinine Clearance 56.3 mL/min (>60); Globulin 2.3 gm/dL (2.3-3.5); Glucose 199 mg/dL (74-106); Magnesium 1.6 mg/dL (1.6-2.6); Osmolality,Calculated 279 (275-295); Potassium 3.5 mMol/L (3.4-5.1); Sodium 138 mMol/L (136-145); Total Protein 6.7 gm/dL (5.7-8.2); Troponin I < 0.002 ng/mL (0.0-0.045); eGFR > 60 See Note
[2025-03-10 13:09] LABS: HCG Qualitative,Urine Negative
[2025-03-10 13:14] LABS: Amorphous Crystals,Urine Present (Absent); Bacteria,Urine Rare; Bilirubin,Urine Negative (Negative); Blood,Urine Negative (Negative); Clarity,Urine Turbid (Clear/Hazy); Color,Urine Yellow (Lt Yel-Yel); Glucose, Urine 3+ (Negative); Hyaline Casts,Urine < 1 /hpf (0-1); Ketones,Urine Negative (Negative); Leukocyte Esterase,Urine Negative (Negative); Nitrite,Urine Negative (Negative); PH,Urine 6.0 (5.0-7.0); Protein,Urine 1+ (Neg - Trace); RBC,Urine 5 /hpf (0-3); Specific Gravity,Urine 1.023 (1.001-1.035); Squamous Epithelial Cell,Urine 16 /hpf (0-5); Urobilinogen,Urine 2.0 mg/dL (0.0-1.0); WBC,Urine 7 /hpf (0-5)
[2025-03-10 13:33] LABS: Amphetamine/Methamp Scrn,U Negative (Negative); Barbiturate Screen,Urine Negative (Negative); Benzodiazepines Screen,Urine Negative (Negative); Benzoylecgonine Screen, Ur Negative (Negative); Fentanyl Screen,Urine Negative (Negative); Opiate Screen,Urine Negative (Negative); THC Screen,Urine Negative (Negative)
[2025-03-10 14:24] LABS: Glucose Estimated Average 183 mg/dL (80-131); Hemoglobin A1C 8.0 % Hgb (4.8-6.0)
--- NOTE | 2025-03-10 14:38 | PD.EDDIZZY ---
ED Dizzyness RME/HPI General Chief Complaint: Dizziness Stated Complaint: Dizzy, blurred vision, dry mouth Time Seen by Provider: 03/10/25 13:17 Arrival date/time: 03/10/25 10:37 RME / HPI RME / HPI Narrative: 49-year-old female with history of drug abuse, psychiatric disorder, diabetes presents with concerns for dizziness and fatigue. Patient woke up this morning with dizziness, fatigue, blurry vision, dry mouth, severity mild. Patient is diabetic and taking metformin. No fever no chest pain no abdominal pain no vomiting no diarrhea. Patient is ambulatory. Related Data Previous Rx's ?Medication ?Instructions ?Recorded aspirin 81 mg tablet,delayed 81 mg PO QDAY #30 tabs 09/29/20 release atorvastatin 40 mg tablet 40 mg PO QPM #30 tabs 09/29/20 clopidogrel 75 mg tablet (Plavix) 75 mg PO QDAY #30 tabs 09/29/20 metformin 1,000 mg tablet 1,000 mg PO BID #60 tabs 09/29/20 hydrocodone 5 mg-acetaminophen 325 1 tab PO BID PRN pain #6 tabs 09/16/23 mg tablet albuterol sulfate 90 mcg/actuation 2 puff inhalation Q6H PRN 06/30/24 aerosol inhaler (Ventolin HFA) shortness of breath or wheezing #8.5 grams azithromycin 250 mg tablet See Rx Instructions PO .COMPLEX #6 06/30/24 tabs budesonide-formoterol HFA 160 1 puff inhalation BID #10.2 grams 07/03/24 mcg-4.5 mcg/actuation aerosol inhaler methylprednisolone 4 mg tablets in 4 mg PO QDAY #21 tabs 07/03/24 a dose pack (Medrol (Christiano)) metoprolol succinate 25 mg 25 mg PO QDAY #30 tabs 07/03/24 tablet,extended release 24 hr tiotropium bromide 18 mcg capsule 1 cap inhalation QDAY #30 puffs 07/03/24 with inhalation device ibuprofen 600 mg tablet 600 mg PO Q8H PRN pain #20 tabs 09/13/24 amoxicillin 875 mg-potassium 1 tab PO BID #14 tabs 01/09/25 clavulanate 125 mg tablet dicyclomine 20 mg tablet 20 mg PO TID #20 tabs 01/09/25 Allergies Allergy/AdvReac Type Severity Reaction Status Date / Time No Known Allergies Allergy Verified 03/10/25 10:42 Review of Systems Review of Systems Narrative Review of Systems: Review of system reviewed and within normal limits except mentioned in HPI ED Exam Narrative Physical exam: VITAL SIGNS: Reviewed. GENERAL APPEARANCE: Alert and interactive, follows commands, no acute distress, HEAD AND FACE: Non-traumatic. ENT: PERRL, pink conjunctivitis, eyelid no trauma, Mucous membrane moist. NECK: Supple, nontender, no nuchal rigidity. CHEST: No tenderness, no crepitus, no paradoxical movement, no retractions. LUNGS: Clear, well ventilated, symmetric, no rales, no wheezing, no ronchi, no stridor, good breath sounds bilaterally. HEART: Regular rate, regular rhythm, no murmur, no gallops. ABDOMEN: Soft, positive bowel sounds, nondistended, no guarding, nontender, no rebound, no masses, RECTAL: Deferred. GENITAL: Deferred. NEUROLOGICAL: Gross motor function intact sensory function intact, Appropriate for age. MUSCULOSKELETAL: low back nontender, full range of motion. EXTREMITIES: Nontender, full range of motion. SKIN: Color pink, dry, no rash, no lacerations, no abrasions, no contusions. LYMPHATICS: Deferred. Course Quality Measures none Orders Category Date Time Status EKG (ED ONLY) *Do not use* NOW Care 03/10/25 10:[address] head/brain wo con Stat Exams 03/10/25 10:48 Completed EKG (ED Only) Stat Exams 03/10/25 10:47 Draft XR chest 2V Stat Exams 03/10/25 10:47 Completed A1C [Glycohemoglobin w (eAG)] Stat Lab 03/10/25 12:19 Completed B-Type Natriuretic Peptide Stat Lab 03/10/25 12:19 Completed Beta Hydroxybutyrate Stat Lab 03/10/25 12:19 Completed CBC Stat Lab 03/10/25 12:19 Completed Comprehensive Metabolic Panel Stat Lab 03/10/25 12:19 Completed Drug Screen,Urine Stat Lab 03/10/25 12:56 Completed HCG Qualitative,Urine Stat Lab 03/10/25 12:56 Completed Magnesium Stat Lab 03/10/25 12:19 Completed Partial Thromboplastin Time Stat Lab 03/10/25 12:19 Completed Prothrombin Time with INR Stat Lab 03/10/25 12:19 Completed Troponin I Stat Lab 03/10/25 12:19 Completed Urinalysis Stat Lab 03/10/25 12:56 Completed VBG [Venous Blood Gas] Stat Lab 03/10/25 12:19 Completed Vital Signs Vital signs: Vital Signs Temperature 98.7 F 03/10/25 10:51 Pulse Rate 83 03/10/25 10:51 Respiratory Rate 18 03/10/25 10:51 Blood Pressure 100/62 03/10/25 10:51 Pulse Oximetry (%) 96 03/10/25 10:51 Oxygen Delivery Method Room Air 03/10/25 10:51 Dizziness MDM Narrative MDM Narrative:: 49-year-old female with history of drug abuse, psychiatric disorder, diabetes presents with concerns for dizziness and fatigue. Patient woke up this morning with dizziness, fatigue, blurry vision, dry mouth, severity mild. Patient is diabetic and taking metformin. No fever no chest pain no abdominal pain no vomiting no diarrhea. Patient is ambulatory. Patient patient's workup today is significant for blood sugar of 199, with no sign of diabetic ketoacidosis. CBC no leukocytosis urinalysis no UTI. CT scan of the head came back unremarkable. Chest x-ray came back normal. EKG showed normal sinus rhythm, ventricular rate of 78 bpm, no ST segment elevation or depression noted. Patient stable for discharge home patient is ambulatory. With no assistance. Her dizziness is almost gone prior to discharge. Patient data External records reviewed:: None Clinical information provided by:: patient and family Social determinants that could affect healthcare access:: none Patient has the following chronic illnesses:: Diabetes mellitus How is presenting disease/condition affected by chronic disease/condition?: exacerbated by Evaluation data The following diagnostics were reviewed and interpreted by me:: lab results, radiology exam(s) and EKG tracing(s) Lab and/or radiology exams considered but not ordered:: None Interpretation Summary: See results MDM Medications / Prescriptions Medications or Prescriptions considered but not ordered:: None Medication administrations:: None Consultations Consultation(s) initiated? (list below): No Diagnosis Dizziness Differential Diagnosis: orthostatic hypotension and other (Dizziness, vertigo,) Most likely diagnosis given after review of the tests above:: Dizziness Admission Indicated Admission indicated?: not indicated Admission Request Was there a request for admission?: No Disposition Plan Disposition Plan: Discharge Discharge Attestation Discharge Attestation: The patient and all family members were given an opportunity to ask questions and understood the discharge instructions. Discharge instructions specifically effects, indications for sooner follow up or return to the emergency department, and the expected course of current diagnosis. Patient condition: Stable Discharge Plan Plan Patient Disposition: HOME (Self Care) Discharge Disposition comment: stable Prescriptions/Referrals Prescriptions/Med Rec: No Action aspirin 81 mg tablet,delayed release (DR/EC) 81 mg PO QDAY Qty: 30 0RF clopidogrel [Plavix] 75 mg tablet 75 mg PO QDAY Qty: 30 0RF atorvastatin 40 mg tablet 40 mg PO QPM Qty: 30 0RF metformin 1,000 mg tablet 1,000 mg PO BID Qty: 60 0RF hydrocodone-acetaminophen 5-325 mg tablet 1 tab PO BID MDD 10 PRN (Reason: pain) Qty: 6 0RF methylprednisolone [Medrol (Christiano)] 4 mg tablets,dose pack 4 mg PO QDAY Qty: 21 0RF metoprolol succinate 25 mg tablet extended release 24 hr 25 mg PO QDAY Qty: 30 0RF budesonide-formoterol 160-4.5 mcg/actuation HFA aerosol inhaler 1 puff inhalation BID Qty: 10.2 0RF tiotropium bromide 18 mcg capsule, w/inhalation device 1 cap inhalation QDAY Qty: 30 0RF Rx Instructions: puncture 1 cap using device; one dose = 2 inhalations amoxicillin-pot clavulanate 875-125 mg tablet 1 tab PO BID Qty: 14 0RF dicyclomine 20 mg tablet 20 mg PO TID Qty: 20 0RF azithromycin 250 mg tablet See Rx Instructions .ROUTE .COMPLEX Qty: 6 0RF Rx Instructions: For 250 mg dose pack: take 500 mg today (day 1), then 250 mg for 4 days (days 2-5) albuterol sulfate [Ventolin HFA] 90 mcg/actuation HFA aerosol inhaler 2 puff inhalation Q6H PRN (Reason: shortness of breath or wheezing) Qty: 8.5 0RF ibuprofen 600 mg tablet 600 mg PO Q8H PRN (Reason: pain) Qty: 20 0RF Referrals: Issac Reyes MD [Primary Care Provider] - In 1 week Problem List Clinical Impression: Dizziness, Diabetes mellitus Patient/Caregiver Discharge Instructions Discharge Activity: activity as tolerated Education Materials: Do You Have Diabetes? Additional Instructions: Thank you for the opportunity for serving you today. You are stable for discharged . You are advised to: Follow-up with your PCP in 1 to 2 days Return to ED for worsening of symptoms Increase oral fluids Print Language: Guyanese Stand Alone Forms: Maureen Award Info., Patient Portal Info Letter PA/STOCK DIGGER Supervising Physician FARHEEN/STOCK DIGGER Supervising Physician: MD Leoncio
[2025-03-10 15:42] VITALS: BP 100/69; PULSE 74; RESP 17; TEMP 36.7; O2SAT 95
== END 2025-03-10 15:43 | disposition home or self-care (01) ==
PROVIDERS: Nurse Practitioner Primary Care; Emergency Provider Family Medicine; PCP Family Medicine
DX: R42 Dizziness and giddiness (principal); E11.9 Type 2 diabetes mellitus without complications
CPT/HCPCS: 36415; 70450; 71046; 80053; 80307; 81001; 81025; 82010; 82803; 83036; 83735; 83880; 84484; 85025; 85610; 85730; 93005; 99284

== ENCOUNTER 2025-03-16 13:27 | Emergency (ER) | payer MEDICAID, SELFPAY ==
[2025-03-16 13:37] VITALS: BP 109/71; PULSE 70; RESP 16; TEMP 36.7; O2SAT 95; BMI 27.0
--- NOTE | 2025-03-16 13:42 | XR_ITS ---
Examination: CT maxillofacial, without intravenous contrast. 2-D sagittal reconstructions. 3-D reconstructions. Date and time of exam:March 16, 2025 1359 hours INDICATIONS: Patient tripped and fell one day ago with injury to the face, facial pain CTDI: vol (mGy):27.3 DLP: (mGycm):398 Technique: Multiple axial images of maxillofacial region, 3.0 mm slice thickness. 2-D sagittal and coronal reconstructions. 3-D reconstructions. Low dose protocols were performed. One or more of the following dose reduction techniques were used; automated exposure control, adjustment of the mA and/or KV according to patient size, use of iterative reconstruction technique. Findings: Frontal bone intact No orbital rim fracture The optic globes exhibit symmetry No nasal bone fracture No depression zygomatic arches There is soft tissue swelling anterior to the right maxillary antrum with a small hematoma, axial image 47, measuring 14 mm Maxilla and mandible intact IMPRESSION:: No acute facial fracture.
--- NOTE | 2025-03-16 13:42 | XR_ITS ---
Examination: CT brain head without contrast. 2-D sagittal coronal reconstructions Date and time of exam:March 16, 2025 1359 hours INDICATIONS: Ground-level fall today with injury to the head, head pain Comparison March 10, 2025 CTDI: vol (mGy):47 DLP: (mGycm):952 Technique: Multiple CT axial sections of the brain have been obtained, 5 mm slice thickness. Contrast has not been administered. 2-D sagittal, coronal reconstructions have been obtained Low dose protocols were performed. One or more of the following dose reduction techniques were used; automated exposure control, adjustment of the mA and/or KV according to patient size, use of iterative reconstruction technique. Findings: No significant ventricular enlargement. Intra-axial or extra-axial hemorrhage density is not seen. No mass effect or midline shift Basal cisterns are not remarkable. Fourth ventricle is midline. Cranial vault intact. Impression: Negative for acute hemorrhage, mass effect or midline shift
--- NOTE | 2025-03-16 13:44 | PD.EDHEAD ---
ED Head Injury RME/HPI General Chief complaint: Head Injury Stated complaint: HEAD INJURY Time Seen by Provider: 03/16/25 13:39 Source: patient Arrival date/time: 03/16/25 13:27 Mode of arrival: ambulatory Limitations: no limitations RME / HPI RME / HPI Narrative: Patient is a 49-year-old female is here today asking for a work note. She states she was at work yesterday, had a ground-level, mechanical, fall and struck the right side of her face. She has periorbital swelling and had a nosebleed that resolved spontaneously. She denies any loss of conscious, vision changes, nausea, vomiting. She has no neck pain. She has no changes in mentation. She does not take any blood thinners. She denies any chronic disease. She has no other acute complaints. Related Data Previous Rx's ?Medication ?Instructions ?Recorded aspirin 81 mg tablet,delayed 81 mg PO QDAY #30 tabs 09/29/20 release atorvastatin 40 mg tablet 40 mg PO QPM #30 tabs 09/29/20 clopidogrel 75 mg tablet (Plavix) 75 mg PO QDAY #30 tabs 09/29/20 metformin 1,000 mg tablet 1,000 mg PO BID #60 tabs 09/29/20 hydrocodone 5 mg-acetaminophen 325 1 tab PO BID PRN pain #6 tabs 09/16/23 mg tablet albuterol sulfate 90 mcg/actuation 2 puff inhalation Q6H PRN 06/30/24 aerosol inhaler (Ventolin HFA) shortness of breath or wheezing #8.5 grams azithromycin 250 mg tablet See Rx Instructions PO .COMPLEX #6 06/30/24 tabs budesonide-formoterol HFA 160 1 puff inhalation BID #10.2 grams 07/03/24 mcg-4.5 mcg/actuation aerosol inhaler methylprednisolone 4 mg tablets in 4 mg PO QDAY #21 tabs 07/03/24 a dose pack (Medrol (Christiano)) metoprolol succinate 25 mg 25 mg PO QDAY #30 tabs 07/03/24 tablet,extended release 24 hr tiotropium bromide 18 mcg capsule 1 cap inhalation QDAY #30 puffs 07/03/24 with inhalation device ibuprofen 600 mg tablet 600 mg PO Q8H PRN pain #20 tabs 09/13/24 amoxicillin 875 mg-potassium 1 tab PO BID #14 tabs 01/09/25 clavulanate 125 mg tablet dicyclomine 20 mg tablet 20 mg PO TID #20 tabs 01/09/25 amoxicillin 875 mg-potassium 1 tab PO Q12H #14 tabs 03/16/25 clavulanate 125 mg tablet Allergies Allergy/AdvReac Type Severity Reaction Status Date / Time No Known Allergies Allergy Verified 03/16/25 13:29 Review of Systems Review of Systems Systems Reviewed: All systems reviewed, normal except as documented ED Exam General Limitations: Present no limitations General appearance: Present alert and in no apparent distress Head Head exam: Present other (Patient has right-sided periorbital edema with no evidence of orbital entrapment. There is a jagged, 0.55 laceration at the right inner lip. No dental injury.) Eye Eye exam: Present normal appearance, PERRL and EOMI ENT ENT exam: Present normal exam, normal oropharynx and mucous membranes moist Neck Neck exam: Present normal inspection, full ROM and trachea midline Chest Chest inspection: Present normal inspection and symmetric chest wall rise Respiratory Respiratory exam: Present normal lung sounds bilaterally Cardiovascular Cardiovascular exam: Present regular rate, normal rhythm and normal heart sounds Abdominal Exam Abdominal exam: Present soft and normal bowel sounds Extremities Exam Extremities exam: Present normal inspection and full ROM Back Exam Back exam: Present normal inspection and full ROM Neurological Exam Neurological exam: Present alert, oriented X3 and CN II-XII intact Psychiatric Psychiatric exam: Present normal affect and normal mood Skin Skin exam: Present warm, dry, intact and normal color Course Quality Measures none Orders Category Date Time Status TDap [Obtain Tdap Consent] X1 Care 03/16/25 13:[address] facial bones wo con Stat Exams 03/16/25 13:[address] head/brain wo con Stat Exams 03/16/25 13:42 Completed Vital Signs Vital signs: Vital Signs Temperature 98.1 F 03/16/25 13:37 Pulse Rate 70 03/16/25 13:37 Respiratory Rate 16 03/16/25 13:37 Blood Pressure 109/71 03/16/25 13:37 Pulse Oximetry (%) 95 03/16/25 13:37 Oxygen Delivery Method Room Air 03/16/25 13:37 Head Injury Patient data External records reviewed:: [facility] previous records Clinical information provided by:: patient Social determinants that could affect healthcare access:: none Patient has the following chronic illnesses:: n/a How is presenting disease/condition affected by chronic disease/condition?: uneffected by Evaluation data The following diagnostics were reviewed and interpreted by me:: radiology exam(s) Lab and/or radiology exams considered but not ordered:: n/a Interpretation Summary: Contusion, lip laceration Medications / Prescriptions Medications or Prescriptions considered but not ordered:: n/a Medication administrations:: tdap Consultations Consultation(s) initiated? (list below): No Diagnosis Differential diagnosis head injury: concussion without loss of consciousness and closed head injury Most likely diagnosis given after review of the tests above:: Contusion, lip laceration Admission Indicated Admission indicated?: not indicated Admission Request Was there a request for admission?: No Disposition Plan Disposition Plan: Discharge Discharge Attestation Discharge Attestation: The patient and all family members were given an opportunity to ask questions and understood the discharge instructions. Discharge instructions specifically effects, indications for sooner follow up or return to the emergency department, and the expected course of current diagnosis. Patient condition: Stable Discharge Plan Plan Patient Disposition: HOME (Self Care) Patient condition on transfer: Stable Prescriptions/Referrals Prescriptions/Med Rec: New amoxicillin-pot clavulanate 875-125 mg tablet 1 tab PO Q12H Qty: 14 0RF No Action aspirin 81 mg tablet,delayed release (DR/EC) 81 mg PO QDAY Qty: 30 0RF clopidogrel [Plavix] 75 mg tablet 75 mg PO QDAY Qty: 30 0RF atorvastatin 40 mg tablet 40 mg PO QPM Qty: 30 0RF metformin 1,000 mg tablet 1,000 mg PO BID Qty: 60 0RF hydrocodone-acetaminophen 5-325 mg tablet 1 tab PO BID MDD 10 PRN (Reason: pain) Qty: 6 0RF methylprednisolone [Medrol (Christiano)] 4 mg tablets,dose pack 4 mg PO QDAY Qty: 21 0RF metoprolol succinate 25 mg tablet extended release 24 hr 25 mg PO QDAY Qty: 30 0RF budesonide-formoterol 160-4.5 mcg/actuation HFA aerosol inhaler 1 puff inhalation BID Qty: 10.2 0RF tiotropium bromide 18 mcg capsule, w/inhalation device 1 cap inhalation QDAY Qty: 30 0RF Rx Instructions: puncture 1 cap using device; one dose = 2 inhalations amoxicillin-pot clavulanate 875-125 mg tablet 1 tab PO BID Qty: 14 0RF dicyclomine 20 mg tablet 20 mg PO TID Qty: 20 0RF azithromycin 250 mg tablet See Rx Instructions .ROUTE .COMPLEX Qty: 6 0RF Rx Instructions: For 250 mg dose pack: take 500 mg today (day 1), then 250 mg for 4 days (days 2-5) albuterol sulfate [Ventolin HFA] 90 mcg/actuation HFA aerosol inhaler 2 puff inhalation Q6H PRN (Reason: shortness of breath or wheezing) Qty: 8.5 0RF ibuprofen 600 mg tablet 600 mg PO Q8H PRN (Reason: pain) Qty: 20 0RF Referrals: No Primary/Family,Physician [Primary Care Provider] - In 1 week Problem List Clinical Impression: Contusion of face, Laceration of lip Patient/Caregiver Discharge Instructions Education Materials: Bruises (Contusions), ED Laceration, Lip or Mouth Additional Instructions: - Apply frequent cold compresses to your face. - Use Tylenol and ibuprofen as needed for comfort. - Keep your lip laceration clean with water. Do not apply any alcohol or hydroperoxide. We will prescribe an antibiotic to help prevent infection. - Return here as needed for any worsening or emergent changes. Print Language: French Stand Alone Forms: Maureen Award Info., Work/School Release, Patient Portal Info Letter
[2025-03-16 15:09] VITALS: BP 110/63; PULSE 65; RESP 18; TEMP 36.3; O2SAT 97
--- NOTE | 2025-03-16 15:53 | PC.NURSE ---
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 PROVIDER NOTIFIED
== END 2025-03-16 16:42 | disposition home or self-care (01) ==
PROVIDERS: Emergency Provider Emergency Medicine
DX: S01.511A Laceration without foreign body of lip, initial encounter (principal); W18.30XA Fall on same level, unspecified, initial encounter
CPT/HCPCS: 70450; 70486; 99283

== ENCOUNTER → 2025-04-27 | Outpatient (CLI) | payer MEDICAID, SELFPAY ==
--- NOTE | 2025-04-27 12:40 | XR_ITS ---
Examination: Hand, right 3 views Technique: Hand AP, oblique, lateral 3 views Date and time of exam: April 27, 2025, 1322 hours INDICATIONS: Right hand pain beginning 3 years ago FINDINGS: Mild juxta-articular bone demineralization. Mild diffuse narrowing joints of the wrist and hand without erosive arthritis Minimal osteoarthritis distal interphalangeal joints second through fifth digits and interphalangeal joint first digit as well as first carpometacarpal joint IMPRESSION: Minimal osteoarthritis as above
--- NOTE | 2025-04-27 12:41 | XR_ITS ---
Examination: Wrist, right 3 views Technique: Wrist AP, oblique, lateral 3 views Date and time of exam: May 07, 2025 1322 hours INDICATIONS: Right hand pain beginning 3 years ago, history carpal tunnel FINDINGS: Mild osteopenia. Mild osteoarthritis radiocarpal navicular trapezium first carpometacarpal joints No fracture IMPRESSION: Osteoarthritis as above
== END | disposition home or self-care (01) ==
DX: M19.041 Primary osteoarthritis, right hand (principal); M18.11 Unilateral primary osteoarthritis of first carpometacarpal joint, right hand; M19.031 Primary osteoarthritis, right wrist
CPT/HCPCS: 73110; 73130